=== PATIENT | female | born 1940 | race Caucasian/White ===

== ENCOUNTER 2017-01-07 18:23 | Inpatient (IN) ==
[2017-01-07] MEDS ORDERED: Ondansetron 4 MG/2 ML VIAL IVP PRN (20:46)
[2017-01-07] MEDS ORDERED: Naloxone 0.4 MG/ML INJ IVP PRN (20:46)
[2017-01-07] MEDS ORDERED: Acetaminophen 325 MG TABLET PO PRN (20:46)
[2017-01-07] MEDS ORDERED: D5% in Water 1,000 ML IVC PRN (20:52)
[2017-01-07] MEDS ORDERED: Dextrose Gel 15 GM PO PRN ×2 (20:52)
[2017-01-07] MEDS ORDERED: *HR* Dextrose 50 % in Water (Syg) 50 ML SYRINGE IVP PRN (20:52)
--- NOTE | 2017-01-07 21:34 | Internal Med History&Physical ---
<Noemi Rojas M - Last Filed: 01/07/17 22:07> Date of Encounter: 01/07/17 Time of Encounter: 21:25 Assessment and Plan (1) Right femoral fracture Current visit: Yes Status: Acute Patient had mechanical fall at home and was found to have right femur fracture. Discussed case with Dr. Phillip of orthopedics, he states fracture is paraprosthetic and may or may not be necessary for surgical intervention. Will keep patient NPO after midnight just in case, and Dr. Price will consult on patient tomorrow. Matador and morphine PRN for pain. Narcan PRN for respiratory depression. Bed rest and fall precautions. Qualifiers: Encounter type: initial encounter Femur location: other head and neck Fracture type: closed Qualified Code(s): S72.091A - Other fracture of head and neck of right femur, initial encounter for closed fracture (2) Type 2 diabetes mellitus Current visit: Yes Status: Acute Check Hgb A1c. diabetic, heart healthy diet. check blood sugars ACHS and q6hrs while NPO sliding scale corrections dose ACHS and q6hrs while NPO hypoglycemic protocol. 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 Consider consult to palliative care if necessary. (4) Alzheimer disease Current visit: Yes Status: Acute Patient has diagnosis of Alzheimer's disease. Per her daughter, she is at her baseline mental status and is oriented x 2 and pleasant. Continue home medications. Qualifiers: Alzheimer's disease onset: unspecified onset Dementia behavioral disturbance: without behavioral disturbance Qualified Code(s): G30.9 - Alzheimer's disease, unspecified; F02.80 - Dementia in other diseases classified elsewhere without behavioral disturbance (5) DVT prophylaxis Current visit: Yes Status: Acute anti-embolic stockings lovenox SQ Daily. Internal Medicine - H&P: HPI Chief complaint: fall Admitted From: Hospital to Hospital Transfer Plans for Post Hospital Care: Transfer Care Home Facility History of present illness: Ms. Ibarra is a 76 year old female with diabetes, arthritis, and Alzeimer's who was transferred from [facility] with right femur fracture. Patient reports she tripped at home and injured her right leg and she also hit her face and suffered a laceration to her right cheek. She reports pain to her right hip and thigh. She denies any lightheadedness or dizziness preceding fall. She denies any chest pain, palpitations, shortness of breath, fever, chills, sweats, nausea, vomiting or diarrhea. Evaluation at [facility] [place] included an xray of right hip which reportedly demonstrated a right proximal femur fracture. On exam, patient is alert and oriented x 2, in no acute distress. Heart has regular rate and rhythm, lungs are clear bilaterally. Peripheral Past Med Surg Social Fam HX - Past Medical History Medical history: arthritis, dementia, diabetes, GERD, hyperlipidemia, osteoporosis, pulmonary embolus Psychiatric history: anxiety, depression - Past Surgical History Surgical History: appendectomy, cholecystectomy, colostomy, hysterectomy - Social History Smoking Status: Former smoker Alcohol use: none Drug use: none - Family History Mother Living Status: Cause of : Heart disease Hx Family Cardiac Disorders: Yes (arterial disease) Father Living Status: Cause of : Cancer Hx Family Cancer: Yes (Leukemia) Internal Medicine - H&P: Meds Celecoxib [Celebrex] DAILY 11/09/14 [History] ClonazePAM [Klonopin] 0.5 mg PO BID 11/09/14 [History] Insulin Glargine,Hum.rec.anlog [Lantus Solostar] 10 unit SQ HS 11/09/14 [History ] Levocetirizine Dihydrochloride 11/09/14 [History] Metoclopramide 11/09/14 [History] TraMADol 11/09/14 [History] TraMADol [Ultram] 50 mg PO QID 11/09/14 [History] Aspirin 81 mg PO DAILY tab.chew 11/10/14 [Rx] Brimonidine 0.2% [Alphagan] 1 drop BOTH EYES DAILY bottle 11/10/14 [Rx] Buspirone [Buspar] 30 mg PO BID tablet 11/10/14 [Rx] Celecoxib [Celebrex] 200 mg PO DAILY capsule 11/10/14 [Rx] ClonazePAM [Klonopin] 0.5 mg PO Q12H #10 tablet 11/10/14 [Rx] Colesevelam [Welchol] 1,250 mg PO BIDAC tablet 11/10/14 [Rx] HYDROcodone/Acet 5/325 mg [Matador 5-325 mg] 1 tab PO Q6H PRN #10 tablet 11/10/14 [Rx] Insulin DETEMIR [Levemir] 10 unit SQ HS mls 11/10/14 [Rx] Insulin LISPRO [HumaLOG] 0 units SQ HS vial 11/10/14 [Rx] Insulin LISPRO [HumaLOG] 0 units SQ TIDAC vial 11/10/14 [Rx] Lisinopril [Zestril] 10 mg PO DAILY tablet 11/10/14 [Rx] Metoclopramide [Reglan] 10 mg PO BIDAC tablet 11/10/14 [Rx] TraMADol [Ultram] 50 mg PO Q6H PRN #10 tablet 11/10/14 [Rx] TraZODone 50 mg PO HS #10 tablet 11/10/14 [Rx] Buspirone HCl [Buspar] 30 mg PO BID tablet 06/25/15 [Rx] HYDROcodone/Acet 5/325 mg [Matador 5-325 mg] 1 tab PO Q6H PRN #30 tab 06/25/15 [Rx ] 3 Allergy/AdvReac Type Severity Reaction Status Date / Time No Known Allergies Allergy Verified 11/08/14 17:42 All Systems PM: A 10-system review of systems was performed and is negative for pertinent findings except as documented above in the HPI. - Constitutional Constitutional: falls, no chills, no fever(s), no night sweats - EENT Eyes: no change in vision, no discharge, no pain, no photophobia Ears: no ear discharge, no ear pain, no tinnitus Nose, mouth and throat: no dysphagia, no nasal discharge, no neck pain, no sore throat - Cardiovascular Cardiovascular ROS IM: no chest pain, no diaphoresis, no dyspnea, no lightheadedness, no palpitations, no syncope - Respiratory Respiratory: no cough, no dyspnea, no wheezing, no excessive phlegm production - Gastrointestinal Gastrointestinal: no abdominal pain, no diarrhea, no hematemesis, no hematochezia, no melena, no nausea, no vomiting - Genitourinary Genitourinary: no change in urinary stream, no dysuria, no flank pain, no hematuria - Musculoskeletal Musculoskeletal ROS IM: no numbness, no tingling Additional comments: right leg and hip pain - Integumentary Integumentary IM: no rash, no unusual bruising - Neurological Neurological ROS: no confusion, no convulsions, no focal weakness, no numbness, no tingling, no tremor(s) - Hematologic/Lymphatic Hematologic/Lymphatic: no easy bruising - Constitutional Vitals: Temp Pulse Resp BP Pulse Ox 98.7 F 76 16 128/63 99 01/07/17 20:38 01/07/17 20:38 01/07/17 20:38 01/07/17 20:38 01/07/17 20:38 General appearance: Present: A&O X 2, pleasant, no acute distress - Head Head exam: Present: normocephalic Additional comments: Laceration lateral to right eye and on right cheek, clean and sutured - Eye Eye exam: Present: PERRL, conjuntiva pink, sclera anicteric Pupils: Present: PERRL - Neck Neck exam general surgery: Present: supple, trachea midline. Absent: lymphadenopathy - Respiratory Respiratory exam: Present: CTAB. Absent: accessory muscle use, rales, rhonchi, wheezes - Cardiovascular Cardiovascular exam: Present: RRR, +S1, +S2. Absent: diastolic murmur, gallop, rubs, systolic murmur - GI/Abdominal GI/Abdominal exam: Present: normal bowel sounds, soft, no peritoneal signs. Absent: distended, tenderness - Extremities Exam Extremities exam: Present: tenderness (right proximal thigh), warm, radial pulses palpable and symmetrical. Absent: calf tenderness, cyanotic, pedal edema - Neurological Exam Neurological exam: Present: CN II-XII intact, oriented X3, no focal deficits. Absent: pronater drift, facial droop, speech deficit - Skin Skin exam: Present: dry, intact <Menon-Cedrick Carolina - Last Filed: 01/08/17 00:32> Date of Encounter: 01/08/17 Internal Medicine - H&P: HPI History of present illness: Ms. Ibarra is a 76 year old female All Systems PM: A 10-system review of systems was performed and is negative for pertinent findings except as documented above in the HPI. - Constitutional Vitals: Temp Pulse Resp BP Pulse Ox 98.5 F 82 16 112/59 99 01/07/17 22:58 01/07/17 22:58 01/07/17 22:58 01/07/17 22:58 01/07/17 22:58 - Attending Attestation I examined this patient and my medical decision-making was reviewed with the ADDRESSOGRAPH OPERATOR. I agree with the documented findings, disposition and treatment plan as described except to the extent set forth below. Patient is a 76-year-old female with past medical history arthritis, dementia, diabetes, GERD, hyperlipidemia, osteoporosis, pulmonary embolism, anxiety and depression. Patient presents as a transfer from [facility] [place]. Patient apparently tripped and injured her right leg and also sustained a laceration to the right side of face. She complains of right hip pain and thigh pain. Denies chest pain or shortness of breath or palpitations. No other acute symptoms. Patient is awake and alert. Not in any distress. She is able to provide some history. No family members at bedside. Heart rate 82, blood pressure 112/59, O2 sat 99%. Heart S1 is positive no murmurs or rubs. Lungs bilateral air entry nose or crackles. Abdomen soft nontender.
[2017-01-07 21:49] LABS: INR 1.1; Prothrombin Time 11.8 Seconds (9.4-12.1)
[2017-01-07 21:52] LABS: Hemoglobin A1C 6.4 %
[2017-01-07] MEDS: Insulin LISPRO 300 UNITS/3 ML VIAL SQ SCH (22:10)
[2017-01-07] MEDS: *HR* Morphine 2 MG/ML SYRINGE IVP PRN (22:31)
[2017-01-08 03:02] LABS: Basophils % 0.7 %; Eosinophils # 0.2 K/mcL (0.0-0.6); Eosinophils % 3.3 %; Hematocrit 20.8 % (35.3-44.9); Hemoglobin 6.5 g/dL (11.5-15.4); Immature Granulocytes % 0.2 % (0-4); Lymphocytes # 1.1 K/mcL (0.6-4.6); Lymphocytes % 19.5 %; Mean Corpuscular HGB Conc 31.3 g/dL (31.6-35.5); Mean Corpuscular Hemoglobin 23.4 pg (28.0-33.3); Mean Corpuscular Volume 74.8 fL (83.0-100.0); Mean Platelet Volume 8.9 fL (9.4-12.4); Monocytes # 0.5 K/mcL (0.0-1.3); Monocytes % 8.9 %; Neutrophils # 3.7 K/mcL (1.6-8.9); Platelet Count 268 K/mcL (140-400); Red Blood Count 2.78 M/mcL (3.82-4.97); Red Cell Distribution Width 15.2 % (11.5-14.5); Segmented Neutrophils % 67.4 %
[2017-01-08 03:16] LABS: BUN/Creatinine Ratio 19 (6-26); Blood Urea Nitrogen 13 mg/dL (7-20); Calcium 8.4 mg/dL (8.6-10.8); Carbon Dioxide 24 mEq/L (19-29); Chloride 106 mEq/L (98-109); Glucose 121 mg/dL (70-99); Osmolality,Calculated 283 (280-300); Potassium 4.1 mEq/L (3.5-4.5); Sodium 136 mEq/L (136-145); eGFR For African Americans > 60 (> 60); eGFR For Non-African Americans > 60 (> 60)
[2017-01-08] MEDS ORDERED: *HR* Enoxaparin 30 MG/0.3 ML SYRINGE SQ SCH (06:00)
[2017-01-08] MEDS: *HR* Morphine 2 MG/ML SYRINGE IVP PRN ×2 (06:37→20:43)
[2017-01-08] MEDS: Famotidine 20 MG/2 ML VIAL IVP SCH ×2 (06:38→16:12)
--- NOTE | 2017-01-08 08:02 | Internal Med Progress Note ---
<Zeus Hernandez - Last Filed: 01/08/17 07:44> Date of Encounter: 01/08/17 Time of Encounter: 07:44 - Assessment and plan (1) Right femoral fracture Current Visit: Yes Status: Acute Assessment and plan: Xray of right hip at [facility] showed right proximal femoral fracture. likely mechanical fall, but patient does have alzheimers and states she cannot fully remember what happened. Plan: norco and morphine PRN for pain fall precautions. appreciate orthopedic surgery recommendations. NPO for now. Qualifiers: Encounter type: initial encounter Femur location: other head and neck Fracture type: closed Qualified Code(s): S72.091A - Other fracture of head and neck of right femur, initial encounter for closed fracture (2) Anemia Current Visit: No Status: Acute Assessment and plan: Hg 6.5 2 units blood pending. will recheck Hg. patient is chronically anemic. will get iron panel with B12, folate with morning labs tomorrow. Qualifiers: Anemia type: other cause Other causes of anemia: acute posthemorrhagic Qualified Code(s): D62 - Acute posthemorrhagic anemia (3) Chest pain Current Visit: Yes Status: Acute Assessment and plan: patient reports substernal chest pain that she describes as a dull ache that has been going on since last night. the chest pain was reproducible upon exam, but will get EKG and troponins to rule out ACS. Qualifiers: Chest pain type: unspecified Qualified Code(s): R07.9 - Chest pain, unspecified (4) Type 2 diabetes mellitus Current Visit: Yes Status: Acute Assessment and plan: well controlled. A1C 6.4 currently NPO\check sugars [id number] basal insulin with medium dose sliding scale. 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 will attempt to discuss code status if daughter is present in room. (6) Alzheimer disease Current Visit: Yes Status: Acute Assessment and plan: Patient currently alert and oriented x3, lives at home with her daughter. continue home medications. Qualifiers: Alzheimer's disease onset: unspecified onset Dementia behavioral disturbance: without behavioral disturbance Qualified Code(s): G30.9 - Alzheimer's disease, unspecified; F02.80 - Dementia in other diseases classified elsewhere without behavioral disturbance (7) DVT prophylaxis Current Visit: Yes Status: Acute Assessment and plan: EPCDs - Subjective Interval history: 76 F evaluated at bedside. patient is alert and oriented x3. she states she lives at home with her daughter and grandsons. patient states she thinks she tripped and broke her hip, but she is not quite sure what happens and doesnt fully remember. she also states that she used to live with her , but he a few weeks ago. patient denies nausea, vomiting, diarrhea, fever. she reports chills. she does report chest pain since last night. she denies shortness of breath. - Constitutional Vitals: Temp Pulse Resp BP Pulse Ox 99.3 F 74 14 102/61 98 01/08/17 07:08 01/08/17 07:08 01/08/17 07:08 01/08/17 07:08 01/08/17 07:08 General appearance: Present: A&O X 2, pleasant, no acute distress - Head Head exam: Present: normocephalic Additional comments: bruising under corner of right eye. laceration present on right cheek and under right eyebrow. - Neck Neck exam general surgery: Present: supple, trachea midline - Respiratory Respiratory exam: Present: CTAB - Cardiovascular Cardiovascular exam: Present: RRR, +S1, +S2 - GI/Abdominal GI/Abdominal exam: Present: normal bowel sounds, soft, tenderness. Absent: distended - Extremities Exam Extremities exam: Present: tenderness (tenderness present on right hip area. ). Absent: cyanotic, pedal edema - Neurological Exam Neurological exam: Present: alert, oriented X3 - Psychiatric Psychiatric exam: Present: normal affect, normal mood Internal Medicine: Result - Labs CBC & Chem 7: 01/08/17 02:44 01/08/17 02:44 Labs: Short CBC 01/08/17 Range/Units 02:44 WBC 5.5 (4.3-11.1) K/mcL Hgb 6.5 L (11.5-15.4) g/dL Hct 20.8 L (35.3-44.9) % Plt Count 268 (140-400) K/mcL Neutrophils # 3.7 (1.6-8.9) K/mcL [facility] 01/08/17 02:44 Sodium 136 Potassium 4.1 Chloride 106 Carbon Dioxide 24 BUN 13 Creatinine 0.69 Glucose 121 H Calcium 8.4 L - ABG Interpretation ABG results: PT/INR, D-dimer PT 11.8 Seconds (9.4-12.1) 01/07/17 21:34 Consult Discharge Plan - Plan Referrals: NONE,PCP [Primary Care Provider] - <Eugenio Garcia - Last Filed: 01/08/17 08:23> Date of Encounter: 01/08/17 - Constitutional Vitals: Temp Pulse Resp BP Pulse Ox 99.3 F 74 14 102/61 98 01/08/17 07:08 01/08/17 07:08 01/08/17 07:08 01/08/17 07:08 01/08/17 07:08 Internal Medicine: Result - Labs CBC & Chem 7: 01/08/17 02:44 01/08/17 02:44 Labs: Short CBC 01/08/17 Range/Units 02:44 WBC 5.5 (4.3-11.1) K/mcL Hgb 6.5 L (11.5-15.4) g/dL Hct 20.8 L (35.3-44.9) % Plt Count 268 (140-400) K/mcL Neutrophils # 3.7 (1.6-8.9) K/mcL [facility] 01/08/17 02:44 Sodium 136 Potassium 4.1 Chloride 106 Carbon Dioxide 24 BUN 13 Creatinine 0.69 Glucose 121 H Calcium 8.4 L - ABG Interpretation ABG results: PT/INR, D-dimer PT 11.8 Seconds (9.4-12.1) 01/07/17 21:34 - Impressions Impressions Pelvis X-Ray 01/08/17 07:29 IMPRESSION: 1. No definite acute findings in the pelvis. 2. Bony demineralization partially limits evaluation for fractures. Consider further evaluation with CT if there are clinical findings of fracture. 3. Questionable healed or healing fractures of the bilateral inferior pubic rami, potentially related to insufficiency injury. 4. 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 5. 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 D/ / Gage Cruz MD / Gage Cruz MD Interpreting Provider: Gage Cruz MD - Attending Attestation possible chronic anemia from iron deficiency, continue famotidine, consider GI consult if evidence of bleeding Send hemoccult I examined this patient and my medical decision-making was reviewed with the Resident Physician. I agree with the documented findings, disposition and treatment plan as described except to the extent set forth below.
[2017-01-08] MEDS ORDERED: clonazePAM 0.5 MG TABLET PO PRN (08:18)
[2017-01-08] MEDS: Insulin LISPRO 300 UNITS/3 ML VIAL SQ SCH ×4 (08:19→20:49)
--- NOTE | 2017-01-08 08:39 | Orthopedic Consult Note ---
Date of Encounter: 01/08/17 Time of Encounter: 08:36 Assessment and Plan (1) Fracture of right hip Current Visit: Yes Status: Acute I did discuss the diagnosis in detail with the patient. She has a prior right hip hemiarthroplasty and although she did have a greater trochanter avulsion shortly thereafter she had done reasonably well. She was admitted after a fall which led to an acute anterior cortical fracture of the right proximal femur though this seems to not be affecting the stability of the implant which appears well fixed on x-ray. My recommendation at this point is nonoperative management in the form of touchdown weightbearing with the assistance of physical therapy. She will require close radiographic follow-up. The patient is aware that should the implant become loose and displace she will likely require revision hip arthroplasty. She does have a hemoglobin of 6.5 and we will defer transfusion to the primary team. I anticipate discharge to a rehabilitation facility to help recover. Follow up with me in the office in 1 week for a clinical and radiographic reevaluation or sooner if needed. Qualifiers: Encounter type: initial encounter Fracture type: closed Qualified Code(s) : S72.001A - Fracture of unspecified part of neck of right femur, initial encounter for closed fracture History of Present Illness HPI: Ms. Ibarra is a 76 year old female who is a hospital transfer last night to the hospitalist service here at edema related to a right proximal femur fracture. The patient has a history of a right hip hemiarthroplasty over a year ago and had a postoperative greater trochanter fracture which was managed nonoperatively. She had apparently done reasonably well from this and had a non -syncopal fall yesterday and developed an acute fracture of the anterior cortex of the proximal femur. Orthopedics was counseled to to assist in evaluation and management of this patient. On my evaluation she complains of right groin pain worse with movement and better at rest. She reports no numbness, tingling , or any other associated signs or symptoms. She did have a small face laceration over the right eye. No headaches, neck pain, chest pain, abdominal pain, bilateral upper extremity pain, or left lower extremity pain. She has no other complaints. Past Med Surg Social Fam HX - Past Medical History Medical history: arthritis, dementia, diabetes, GERD, hyperlipidemia, osteoporosis, pulmonary embolus Psychiatric history: anxiety, depression - Past Surgical History Surgical History: appendectomy, cholecystectomy, colostomy, hysterectomy - Social History Smoking Status: Former smoker Alcohol use: none Drug use: none - Family History Mother Living Status: Cause of : Heart disease Hx Family Cardiac Disorders: Yes (arterial disease) Father Living Status: Cause of : Cancer Hx Family Cancer: Yes (Leukemia) Medications and Allergies Celecoxib [Celebrex] DAILY 11/09/14 [History] ClonazePAM [Klonopin] 0.5 mg PO BID 11/09/14 [History] Insulin Glargine,Hum.rec.anlog [Lantus Solostar] 10 unit SQ HS 11/09/14 [History ] Levocetirizine Dihydrochloride 11/09/14 [History] Metoclopramide 11/09/14 [History] TraMADol 11/09/14 [History] TraMADol [Ultram] 50 mg PO QID 11/09/14 [History] Aspirin 81 mg PO DAILY tab.chew 11/10/14 [Rx] Brimonidine 0.2% [Alphagan] 1 drop BOTH EYES DAILY bottle 11/10/14 [Rx] Buspirone [Buspar] 30 mg PO BID tablet 11/10/14 [Rx] Celecoxib [Celebrex] 200 mg PO DAILY capsule 11/10/14 [Rx] ClonazePAM [Klonopin] 0.5 mg PO Q12H #10 tablet 11/10/14 [Rx] Colesevelam [Welchol] 1,250 mg PO BIDAC tablet 11/10/14 [Rx] HYDROcodone/Acet 5/325 mg [Juana Diaz 5-325 mg] 1 tab PO Q6H PRN #10 tablet 11/10/14 [Rx] Insulin DETEMIR [Levemir] 10 unit SQ HS mls 11/10/14 [Rx] Insulin LISPRO [HumaLOG] 0 units SQ HS vial 11/10/14 [Rx] Insulin LISPRO [HumaLOG] 0 units SQ TIDAC vial 11/10/14 [Rx] Lisinopril [Zestril] 10 mg PO DAILY tablet 11/10/14 [Rx] Metoclopramide [Reglan] 10 mg PO BIDAC tablet 11/10/14 [Rx] TraMADol [Ultram] 50 mg PO Q6H PRN #10 tablet 11/10/14 [Rx] TraZODone 50 mg PO HS #10 tablet 11/10/14 [Rx] Buspirone HCl [Buspar] 30 mg PO BID tablet 06/25/15 [Rx] HYDROcodone/Acet 5/325 mg [Juana Diaz 5-325 mg] 1 tab PO Q6H PRN #30 tab 06/25/15 [Rx ] 3 Allergy/AdvReac Type Severity Reaction Status Date / Time No Known Allergies Allergy Verified 11/08/14 17:42 All Systems Reviewed: Constitutional and musculoskeletal systems were reviewed and are negative unless otherwise stated in history of present illness. Physical Exam - Constitutional Vitals: Temp Pulse Resp BP Pulse Ox 99.3 F 74 14 102/61 98 01/08/17 07:08 01/08/17 07:08 01/08/17 07:08 01/08/17 07:08 01/08/17 07:08 Constitutional -Vitals reviewed -The patient is well developed and well nourished. -Mood is pleasant. -The patient is well groomed. Psychiatric -The patient is fully alert and oriented x 3. Respiratory: -Respiratory effort normal Abdomen: -Soft abdomen -Non tender -Non distended: Left upper extremity: -No deformities. The overlying skin is intact. No obvious signs of acute trauma. -No tenderness to palpation throughout. -No significant pain with passive motion of the shoulder, elbow, wrist, and fingers within the limits of the bed. -Able to make an "OK" sign, cross the index and long fingers, and extend the thumb. -Sensation grossly intact to light touch throughout the median, radial, and ulnar distributions. -Radial pulse is present; Fingers have good capillary refill. Right upper extremity: -No deformities. The overlying skin is intact. No obvious signs of acute trauma. -No tenderness to palpation throughout. -No significant pain with passive motion of the shoulder, elbow, wrist, and fingers within the limits of the bed. -Able to make an "OK" sign, cross the index and long fingers, and extend the thumb. -Sensation grossly intact to light touch throughout the median, radial, and ulnar distributions. -Radial pulse is present; Fingers have good capillary refill. Left lower extremity: -No deformities. The overlying skin is intact. No obvious signs of acute trauma. -No tenderness to palpation throughout. -No pain with passive motion of the hip, knee, ankle, and toes within the limits of the bed. -No pain with axial loading of the thigh. -Able to dorsiflex and plantarflex the ankle and toes. -Sensation is grossly intact to light touch throughout the sural, saphenous, superficial peroneal, and deep peroneal distributions. -Toes have good capillary refill. Right lower extremity: -No deformities. The overlying skin is intact. No obvious signs of acute trauma. -No tenderness to palpation throughout. -No pain with axial loading of the thigh -Moderate pain with hip flexion passively -I can gently logrolling hip without any significant pain -Able to dorsiflex and plantarflex the ankle and toes. -Sensation is grossly intact to light touch throughout the sural, saphenous, superficial peroneal, and deep peroneal distributions. -Toes have good capillary refill. Diagnostic Imaging: I did personally review and interpret x-rays of the right femur as well as an AP of the pelvis shows a well fixed hip hemiarthroplasty with an acute cortical fracture of the anterior proximal cortex of the femur. This does not seem to be affecting stability of the implant. She does have a chronic avulsion of the greater trochanter which is incidental to her injury. Results - Labs Result Diagrams: 01/08/17 02:44 01/08/17 02:44 Labs: Abnormal lab results RBC 2.78 M/mcL (3.82-4.97) L 01/08/17 02:44 Hgb 6.5 g/dL (11.5-15.4) L 01/08/17 02:44 Hct 20.8 % (35.3-44.9) L 01/08/17 02:44 MCV 74.8 fL (83.0-100.0) L 01/08/17 02:44 MCH 23.4 pg (28.0-33.3) L 01/08/17 02:44 MCHC 31.3 g/dL (31.6-35.5) L 01/08/17 02:44 RDW 15.2 % (11.5-14.5) H 01/08/17 02:44 MPV 8.9 fL (9.4-12.4) L 01/08/17 02:44 Glucose 121 mg/dL (70-99) H 01/08/17 02:44 POC Glucose 148 (58-89) H 01/07/17 20:47 Hemoglobin A1c 6.4 % (-5.6) H 01/07/17 21:34 Calcium 8.4 mg/dL (8.6-10.8) L 01/08/17 02:44 H & H 01/08/17 Range/Units 02:44 Hgb 6.5 L (11.5-15.4) g/dL Hct 20.8 L (35.3-44.9) % All other labs normal. Consult Discharge Plan - Plan Referrals: NONE,PCP [Primary Care Provider] -
[2017-01-08] MEDS ORDERED: 0.9 % Sodium Chloride 250 ML ONE ×2 (09:40→13:51)
[2017-01-08 18:35] LABS: Hematocrit 29.6 % (35.3-44.9); Hemoglobin 9.7 g/dL (11.5-15.4)
[2017-01-08] MEDS: *HR* HYDROcodone/Acet 5/325 mg TABLET PO PRN (18:51)
[2017-01-08] MEDS: traZODone 50 MG TABLET PO SCH (20:43)
[2017-01-08] MEDS ORDERED: Insulin DETEMIR 100 UNIT/ML X5UNITS SQ SCH (21:00)
[2017-01-08] MEDS ORDERED: NON-FORMULARY MEDICATION 1 EACH EACH (Insulin Detemir 10 UNIT) SQ SCH (21:00)
[2017-01-09 03:46] LABS: Basophils % 0.6 %; Eosinophils # 0.1 K/mcL (0.0-0.6); Eosinophils % 1.4 %; Hematocrit 30.7 % (35.3-44.9); Hemoglobin 10.1 g/dL (11.5-15.4); Immature Granulocytes % 0.2 % (0-4); Lymphocytes # 0.9 K/mcL (0.6-4.6); Lymphocytes % 14.4 %; Mean Corpuscular HGB Conc 32.9 g/dL (31.6-35.5); Mean Corpuscular Hemoglobin 24.8 pg (28.0-33.3); Mean Corpuscular Volume 75.2 fL (83.0-100.0); Mean Platelet Volume 9.1 fL (9.4-12.4); Monocytes # 0.5 K/mcL (0.0-1.3); Monocytes % 8.4 %; Neutrophils # 4.8 K/mcL (1.6-8.9); Platelet Count 325 K/mcL (140-400); Red Blood Count 4.08 M/mcL (3.82-4.97); Red Cell Distribution Width 15.5 % (11.5-14.5)
[2017-01-09 03:59] LABS: BUN/Creatinine Ratio 14 (6-26); Blood Urea Nitrogen 9 mg/dL (7-20); Calcium 9.3 mg/dL (8.6-10.8); Carbon Dioxide 24 mEq/L (19-29); Chloride 105 mEq/L (98-109); Glucose 77 mg/dL (70-99); Osmolality,Calculated 279 (280-300); Potassium 3.3 mEq/L (3.5-4.5); Sodium 136 mEq/L (136-145); eGFR For African Americans > 60 (> 60); eGFR For Non-African Americans > 60 (> 60)
[2017-01-09 04:00] LABS: % Iron Saturation 54 % (15-50); Iron 183 mcg/dL (50-170); Transferrin 241 mg/dL (180-382)
[2017-01-09] MEDS: *HR* Morphine 2 MG/ML SYRINGE IVP PRN ×3 (04:00→19:36)
[2017-01-09 04:21] LABS: Ferritin 44 ng/ml (5-204)
[2017-01-09 04:58] LABS: Folate 6.7 ng/mL (7.0-31.4)
[2017-01-09] MEDS: Famotidine 20 MG/2 ML VIAL IVP SCH ×2 (07:01→16:36)
[2017-01-09] MEDS: Insulin LISPRO 300 UNITS/3 ML VIAL SQ SCH ×4 (07:56→20:30)
[2017-01-09] MEDS ORDERED: Potassium Chloride Elixir 20 MEQ/15 ML UDC PO ONE (08:03)
--- NOTE | 2017-01-09 09:08 | Internal Med Progress Note ---
<Zeus Hernandez - Last Filed: 01/09/17 09:30> Date of Encounter: 01/09/17 Time of Encounter: 09:01 - Assessment and plan (1) Right femoral fracture Current Visit: Yes Status: Acute Assessment and plan: Xray of right hip at [facility] showed right proximal femoral fracture. likely mechanical fall, but patient does have alzheimers and states she cannot fully remember what happened. Plan: norco and morphine PRN for pain fall precautions. ortho recommends non operative managemnet. Follow up with orthopedic surgery 1 week after discharge. PT/OT Qualifiers: Encounter type: initial encounter Femur location: other head and neck Fracture type: closed Qualified Code(s): S72.091A - Other fracture of head and neck of right femur, initial encounter for closed fracture (2) Fever Current Visit: Yes Status: Acute Assessment and plan: patient spiked temperature of 100.2 overnight. 1V chest xray had no evidence of consolidation. Plan: stat UA with reflex culture and 2V CXR pending. Qualifiers: Fever type: unspecified Qualified Code(s): R50.9 - Fever, unspecified (3) Rib fractures Current Visit: Yes Status: Acute Assessment and plan: 1V CXR showed right lateral rib fractures present in ribs 5-7, likely subacute to chronic. There was concern for possible pneumothorax on CXR Plan: stat 2V CXR pending. Qualifiers: Encounter type: sequela Rib fracture type: multiple ribs Fracture type: closed Laterality: unspecified laterality Qualified Code(s): S22.49XS - Multiple fractures of ribs, unspecified side, sequela (4) Anemia Current Visit: No Status: Acute Assessment and plan: Hg 6.5 on admission. 2 units blood blood transfused yesterday. iron profile and B12 within normal limits. folate slightlly low. etiology likely acute bood loss anemia. stool occult blood is positive. Plan: folic acid supplementation. consult to gastroenterology. NPO after midnight for possible scope. Qualifiers: Anemia type: other cause Other causes of anemia: acute posthemorrhagic Qualified Code(s): D62 - Acute posthemorrhagic anemia (5) Chest pain Current Visit: Yes Status: Resolved Assessment and plan: EKG unremarkable, tropes x3 negative. continue to monitor. Qualifiers: Chest pain type: unspecified Qualified Code(s): R07.9 - Chest pain, unspecified (6) Type 2 diabetes mellitus Current Visit: Yes Status: Acute Assessment and plan: hypoglycemic today. A1C 6.4 diabetic diet low dose SSI with ACHS accuchecks. Qualifiers: Diabetes mellitus complication status: with unspecified complications Diabetes mellitus retirement insulin use: with retirement use Qualified Code(s) : E11.8 - Type 2 diabetes mellitus with unspecified complications; Z79.4 - intermodal customer service (current) use of insulin (7) Hospice care patient Current Visit: Yes Status: Acute Assessment and plan: Patient is hospice for Alzheimes disease per patient's daughter. will attempt to discuss code status if daughter is present in room. (8) Alzheimer disease Current Visit: Yes Status: Acute Assessment and plan: Patient currently alert and oriented x3, lives at home with her daughter. continue home medications. Qualifiers: Alzheimer's disease onset: unspecified onset Dementia behavioral disturbance: without behavioral disturbance Qualified Code(s): G30.9 - Alzheimer's disease, unspecified; F02.80 - Dementia in other diseases classified elsewhere without behavioral disturbance (9) DVT prophylaxis Current Visit: Yes Status: Acute Assessment and plan: EPCDs - Subjective Interval history: 76 F evaluated at bedside. patient is laying in bed hunched over and she states she is sad because her recently . she denies nausea, vomting , diarrhea, fever, chills, chest pain, shortness of breath. - Constitutional Vitals: Temp Pulse Resp BP Pulse Ox 100.2 F H 72 14 149/78 98 01/09/17 07:13 01/09/17 07:13 01/09/17 07:13 01/09/17 07:13 01/09/17 07:13 General appearance: Present: pleasant, no acute distress - Head Head exam: Present: atraumatic, normocephalic - Neck Neck exam general surgery: Present: supple, trachea midline - Respiratory Respiratory exam: Present: decreased breath sounds - Cardiovascular Cardiovascular exam: Present: RRR, +S1, +S2 - Extremities Exam Extremities exam: Absent: cyanotic, pedal edema - Neurological Exam Neurological exam: Present: alert, oriented X3 - Psychiatric Psychiatric exam: Present: depressed - Skin Skin exam: Present: intact Internal Medicine: Result - Labs CBC & Chem 7: 01/09/17 03:14 01/09/17 03:14 Labs: Short CBC 01/08/17 01/09/17 Range/Units 18:23 03:14 WBC 6.4 (4.3-11.1) K/mcL Hgb 9.7 L D 10.1 L (11.5-15.4) g/dL Hct 29.6 L 30.7 L (35.3-44.9) % Plt Count 325 (140-400) K/mcL Neutrophils # 4.8 (1.6-8.9) K/mcL BMP 01/09/17 03:14 Sodium 136 Potassium 3.3 L Chloride 105 Carbon Dioxide 24 BUN 9 Creatinine 0.65 Glucose 77 Calcium 9.3 Cardiac Enzymes 01/08/17 01/09/17 Range/Units 18:23 03:14 Troponin I 0.00 0.01 (0-0.03) ng/mL - ABG Interpretation ABG results: PT/INR, D-dimer PT 11.8 Seconds (9.4-12.1) 01/07/17 21:34 - Impressions Impressions Chest X-Ray 01/09/17 07:45 IMPRESSION: Suspect subacute to chronic fractures involving the right 5th through 7th ribs. Correlate with point tenderness. Interface projecting over the right lateral chest is favored to represent a skin fold. If there is clinical concern for pneumothorax, consider repeating the chest radiograph or obtaining PA and lateral chest radiographs. Otherwise, negative portable chest. The findings were sent to the Radiology Results Communication Center at 8:24 am on 01/09/2017to be communicated to a licensed caregiver. D/ / 01/09/2017 08:29:42 Clive Aquino MD / Candace Braden Interpreting Provider: Clive Aquino MD - VTE Documentation of Mechanical Device: Intermittent pneumatic compression device Consult Discharge Plan - Plan Referrals: NONE,PCP [Primary Care Provider] - <Eugenio Garcia H - Last Filed: 01/09/17 13:01> Date of Encounter: 01/09/17 - Constitutional Vitals: Temp Pulse Resp BP Pulse Ox 98.8 F 68 14 147/76 99 01/09/17 11:48 01/09/17 11:48 01/09/17 11:48 01/09/17 11:48 01/09/17 11:48 Internal Medicine: Result - Labs CBC & Chem 7: 01/09/17 03:14 01/09/17 03:14 Labs: Short CBC 01/08/17 01/09/17 Range/Units 18:23 03:14 WBC 6.4 (4.3-11.1) K/mcL Hgb 9.7 L D 10.1 L (11.5-15.4) g/dL Hct 29.6 L 30.7 L (35.3-44.9) % Plt Count 325 (140-400) K/mcL Neutrophils # 4.8 (1.6-8.9) K/mcL BMP 01/09/17 03:14 Sodium 136 Potassium 3.3 L Chloride 105 Carbon Dioxide 24 BUN 9 Creatinine 0.65 Glucose 77 Calcium 9.3 Cardiac Enzymes 01/08/17 01/09/17 Range/Units 18:23 03:14 Troponin I 0.00 0.01 (0-0.03) ng/mL Urine 01/09/17 Range/Units 12:32 Urine Color Yellow (Yellow) Urine Clarity Clear (Clear) Urine pH 6.0 (5.0-8.0) pH Units Ur Specific Bentley 1.012 (1.010-1.025) Urine Protein Negative (Neg-Trace) mg/dL Urine Glucose (UA) Normal (Normal) mg/dL - ABG Interpretation ABG results: PT/INR, D-dimer PT 11.8 Seconds (9.4-12.1) 01/07/17 21:34 - Impressions Impressions Chest X-Ray 01/09/17 07:45 IMPRESSION: Suspect subacute to chronic fractures involving the right 5th through 7th ribs. Correlate with point tenderness. Interface projecting over the right lateral chest is favored to represent a skin fold. If there is clinical concern for pneumothorax, consider repeating the chest radiograph or obtaining PA and lateral chest radiographs. Otherwise, negative portable chest. The findings were sent to the Radiology Results Communication Center at 8:24 am on 01/09/2017to be communicated to a licensed caregiver. D/ / 01/09/2017 08:29:42 Clive Aquino MD / Candace Braden Interpreting Provider: Clive Aquino MD Chest X-Ray 01/09/17 09:27 IMPRESSION: No pneumothorax. No acute abnormality. Subacute appearing right 5th through 7th rib fractures. D/ / 01/09/2017 10:45:30 Sushil Mai MD / Candace Braden Interpreting Provider: Sushil Mai MD - Attending Attestation Possible acute and chronic blood loss anemia GI consult in the morning Unclear etiology of mild fever I examined this patient and my medical decision-making was reviewed with the Resident Physician. I agree with the documented findings, disposition and treatment plan as described except to the extent set forth below.
[2017-01-09] MEDS: Folic Acid 1 MG TABLET PO SCH (09:45)
[2017-01-09] MEDS: *HR* HYDROcodone/Acet 5/325 mg TABLET PO PRN (09:47)
--- NOTE | 2017-01-09 12:13 | Orthopedics Progress Note ---
Date of Encounter: 01/09/17 Time of Encounter: 12:11 - Assessment and Plan (1) Fracture of right hip Current Visit: Yes Status: Acute I did discuss the diagnosis in detail with the patient. She has a prior right hip hemiarthroplasty and although she did have a greater trochanter avulsion shortly thereafter she had done reasonably well. She was admitted after a fall which led to an acute anterior cortical fracture of the right proximal femur though this seems to not be affecting the stability of the implant which appears well fixed on x-ray. My recommendation at this point is nonoperative management in the form of touchdown weightbearing with the assistance of physical therapy. She will require close radiographic follow-up. The patient is aware that should the implant become loose and displace she will likely require revision hip arthroplasty. She does have a hemoglobin of 6.5 and we will defer transfusion to the primary team. I anticipate discharge to a rehabilitation facility to help recover. Follow up with me in the office in 1 week for a clinical and radiographic reevaluation or sooner if needed. Qualifiers: Encounter type: initial encounter Fracture type: closed Qualified Code(s) : S72.001A - Fracture of unspecified part of neck of right femur, initial encounter for closed fracture Subjective Interval history: S: Resting in bed comfortably. Expected pain to the right hip and groin. No new injuries. She has not yet been up with therapy. O: Afebrile and vital signs are stable No deformities to the bilateral lower extremities. The overlying skin is intact Mild tenderness to palpation over the right hip and groin I can gently passively logroll the right thigh without significant pain. No significant pain with axial loading of the right hip. A: Stable, periprosthetic fracture of the right proximal femur P: At this point my recommendation is continued nonoperative management. Physical therapy when able Toe-touch weightbearing to the right lower extremity Re-x-ray in one week in the office Objective Vital signs: Vital Signs Temp Pulse Resp BP Pulse Ox 01/09/17 11:48 98.8 F 68 14 147/76 99 01/09/17 07:13 100.2 F H 72 14 149/78 98 01/09/17 04:12 98.3 F 71 18 125/75 97 01/09/17 00:15 98.3 F 77 17 123/73 98 01/08/17 21:05 98.7 F 75 17 127/75 98 01/08/17 16:40 98.9 F 78 16 130/72 01/08/17 14:14 99.0 F 69 16 01/08/17 13:58 99.3 F 73 15 120/55 01/08/17 12:32 98.7 F 15 121/68 Intake and Output 01/08/17 01/09/17 01/09/17 23:59 07:59 15:59 Intake Total 520 / 520 200 / 200 118 / 118 Balance 520 / 520 200 / 200 118 / 118 Intake: Oral 220 / 220 200 / 200 118 / 118 Blood Product 300 / 300 Rbcs Leuko Poor As-1 Unit 300 / 300 [id number] Other: Meal Dinner Breakfast Percent of Meal Consumed 5% 30% Stool Size Small Moderate Stool Consistency formed loose Stool Color Brown Yellow Green # Urine Diapers 1 1 # Bowel Movements 1 # Bowel Movement Diapers 1 Weight 55.9 kg Blood Glucose* 106 89 161 Patient Weight 01/09/17 23:59 Weight 55.9 kg - Labs CBC & BMP: 01/09/17 03:14 01/09/17 03:14 Labs: Abnormal lab results Hgb 10.1 g/dL (11.5-15.4) L 01/09/17 03:14 Hct 30.7 % (35.3-44.9) L 01/09/17 03:14 MCV 75.2 fL (83.0-100.0) L 01/09/17 03:14 MCH 24.8 pg (28.0-33.3) L 01/09/17 03:14 RDW 15.5 % (11.5-14.5) H 01/09/17 03:14 MPV 9.1 fL (9.4-12.4) L 01/09/17 03:14 Potassium 3.3 mEq/L (3.5-4.5) L 01/09/17 03:14 POC Glucose 161 (58-89) H 01/09/17 11:36 Hemoglobin A1c 6.4 % (-5.6) H 01/07/17 21:34 Calculated Osmolality 279 (280-300) L 01/09/17 03:14 Iron 183 mcg/dL (50-170) H 01/09/17 03:14 % Saturation 54 % (15-50) H 01/09/17 03:14 Folate 6.7 ng/mL (7.0-31.4) L 01/09/17 03:14 Stool Occult Blood Positive (Negative) A 01/08/17 20:45 - VTE Documentation of Mechanical Device: Intermittent pneumatic compression device Consult Discharge Plan - Plan Referrals: NONE,PCP [Primary Care Provider] -
[2017-01-09 12:36] LABS: Bilirubin,Urine Negative (Negative); Blood,Urine Negative (Negative); Clarity,Urine Clear (Clear); Color,Urine Yellow (Yellow); Glucose,Urine (UA) Normal (Normal); Ketones,Urine Negative (Negative); Leukocyte Esterase,Urine Negative (Negative); Nitrite,Urine Negative (Negative); Protein,Urine Negative (Neg-Trace); Specific Gravity,Urine 1.012 (1.010-1.025); Urobilinogen,Urine Normal (Normal)
--- NOTE | 2017-01-09 18:04 | Electrocardiograph Report ---
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
[2017-01-09] MEDS: traZODone 50 MG TABLET PO SCH (20:29)
[2017-01-09] MEDS: Ondansetron 4 MG/2 ML VIAL IVP PRN (20:29)
[2017-01-09] MEDS ORDERED: *HR* Promethazine 25 MG/ML VIAL IVP ONE (23:48)
[2017-01-10 04:51] LABS: Basophils % 0.2 %; Hematocrit 36.9 % (35.3-44.9); Immature Granulocytes % 0.5 % (0-4); Lymphocytes # 0.8 K/mcL (0.6-4.6); Mean Corpuscular HGB Conc 33.6 g/dL (31.6-35.5); Mean Corpuscular Hemoglobin 24.9 pg (28.0-33.3); Mean Corpuscular Volume 74.1 fL (83.0-100.0); Mean Platelet Volume 8.7 fL (9.4-12.4); Monocytes # 0.8 K/mcL (0.0-1.3); Monocytes % 6.5 %; Neutrophils # 10.9 K/mcL (1.6-8.9); Platelet Count 410 K/mcL (140-400); Red Blood Count 4.98 M/mcL (3.82-4.97); Red Cell Distribution Width 16.4 % (11.5-14.5); Segmented Neutrophils % 86.8 %
[2017-01-10 04:54] LABS: Hemoglobin 12.4 g/dL (11.5-15.4)
[2017-01-10 05:04] LABS: BUN/Creatinine Ratio 15 (6-26); Blood Urea Nitrogen 11 mg/dL (7-20); Calcium 9.5 mg/dL (8.6-10.8); Carbon Dioxide 22 mEq/L (19-29); Chloride 95 mEq/L (98-109); Glucose 277 mg/dL (70-99); Osmolality,Calculated 279 (280-300); Potassium 3.1 mEq/L (3.5-4.5); Sodium 130 mEq/L (136-145); eGFR For African Americans > 60 (> 60); eGFR For Non-African Americans > 60 (> 60)
[2017-01-10] MEDS: *HR* Morphine 2 MG/ML SYRINGE IVP PRN (06:09)
[2017-01-10] MEDS: Famotidine 20 MG/2 ML VIAL IVP SCH ×2 (06:09→17:44)
[2017-01-10] MEDS: Ondansetron 4 MG/2 ML VIAL IVP PRN (08:36)
[2017-01-10] MEDS: Insulin LISPRO 300 UNITS/3 ML VIAL SQ SCH ×4 (08:36→22:14)
[2017-01-10] MEDS: Folic Acid 1 MG TABLET PO SCH (08:45)
--- NOTE | 2017-01-10 10:29 | Gastroenterology Consult Note ---
<Antonia Puente - Last Filed: 01/10/17 14:47> Date of Encounter: 01/10/17 Time of Encounter: 09:45 - Assessment and plan (1) Anemia Current Visit: Yes Status: Acute Assessment and plan: Pt presented with anemia with a Hgb 6.5. Occult blood was positive. She has improved to 12.4 following transfusion. She also has femur fracture being managed nonsurgically. She is a risky candidate for invasive work-up, was discussed with her daughter and she consents to EGD. Would suggest continuing PPI and monitor labs. Will proceed with EGD to investigate source of anemia. She is on hospice for alzheimer's and pallatve care may be considered. Qualifiers: Anemia type: unspecified type Qualified Code(s): D64.9 - Anemia, unspecified - Time Spent With Patient Total time spent is greater than 50% in coordination of care (as documented) at patient's floor/unit and/or counseling patient: GI History of Present Illness - Data of Consult Patient: new to practice Consult date: 01/10/17 Requesting Physician: Eugenio Garcia - Consult Narrative Reason for consult: anemia History of present illness: Ms. Ibarra is a 76 year old female who presented with a femur fracture after a fall at home. She is currently on hospice at home for end-stage alheimer's disease. She has a pmhx of colon resection which was reversed, DM, arthritis, GERD and PE. Hgb on admission was 6.5, pt was transfused and has increased to 12.4. She is non-verbal and shakes her head yes or no. No family is at bedside at this time. She denies abdominal pain, nausea or vomiting. Nurses deny any teresita bloody stools. Stool for occult blood was positive. Anticoagulants: none NSAIDS: clebrex Colonoscopy: EGD: Past Med Surg Social Fam HX - Past Medical History Medical history: arthritis, dementia, diabetes, GERD, hyperlipidemia, osteoporosis, pulmonary embolus Psychiatric history: anxiety, depression - Past Surgical History Surgical History: appendectomy, cholecystectomy, colostomy, hysterectomy - Social History Smoking Status: Former smoker Alcohol use: none Drug use: none - Family History Mother Living Status: Cause of : Heart disease Hx Family Cardiac Disorders: Yes (arterial disease) Father Living Status: Cause of : Cancer Hx Family Cancer: Yes (Leukemia) ROS unobtainable: due to mental status - Constitutional Vitals: Temp Pulse Resp BP Pulse Ox 98.3 F 97 18 128/74 95 01/10/17 06:55 01/10/17 06:55 01/10/17 06:55 01/10/17 06:55 01/10/17 06:55 Exam: CONSTITUTIONAL:~alert, shakes her head yes and no, answers simple questions, no acute distress.~HEAD:~normocephalic, bruising noted around right eye, steristrip above right eye and healing laceration below right eye.~EYES:~no jaundice.~NECK:~no obvious swelling.~HEART:~regular rate and rhythm, no murmurs. ~LUNGS:~fair air entry, bilaterally.~ABDOMEN:~non distended, soft, non tender, no masses pulpable, no organomegaly, surgical scar healed.~RECTAL EXAM:~bright red bloody stool noted.~EXTREMITIES:~no clubbing, cyanosis or edema.~SKIN:~ pallor noted, no stigmata of chronic liver disease.~NEUROLOGIC:~see above Results - Labs CBC & Chem 7: 01/10/17 10:26 01/10/17 04:37 Labs: Last Result Calcium 9.5 mg/dL (8.6-10.8) 01/10/17 04:37 Iron 183 mcg/dL (50-170) H 01/09/17 03:14 % Saturation 54 % (15-50) H 01/09/17 03:14 Transferrin 241 mg/dL (180-382) 01/09/17 03:14 Ferritin 44 ng/ml (5-204) 01/09/17 03:14 Troponin I 0.01 ng/mL (0-0.03) 01/09/17 03:14 Vitamin B12 512 pg/mL (213-816) 01/09/17 03:14 Folate 6.7 ng/mL (7.0-31.4) L 01/09/17 03:14 Stool Occult Blood Positive (Negative) A 01/08/17 20:45 Entire Visit Hgb 12.4 g/dL (11.5-15.4) D 01/10/17 04:37 Hct 36.9 % (35.3-44.9) 01/10/17 04:37 PT 11.8 Seconds (9.4-12.1) 01/07/17 21:34 Ferritin 44 ng/ml (5-204) 01/09/17 03:14 Folate 6.7 ng/mL (7.0-31.4) L 01/09/17 03:14 - ABG ABG results: PT/INR, D-dimer PT 11.8 Seconds (9.4-12.1) 01/07/17 21:34 - Impressions Impressions Chest X-Ray 01/09/17 09:27 IMPRESSION: No pneumothorax. No acute abnormality. Subacute appearing right 5th through 7th rib fractures. D/ / 01/09/2017 10:45:30 Sushil Mai MD / Candace Braden Interpreting Provider: Sushil Mai MD Consult Discharge Plan - Plan Referrals: NONE,PCP [Primary Care Provider] - <Ivory Philip - Last Filed: 01/10/17 17:51> Date of Encounter: 01/10/17 Time of Encounter: 13:30 - Time Spent With Patient Total time spent is greater than 50% in coordination of care (as documented) at patient's floor/unit and/or counseling patient: GI History of Present Illness - Data of Consult Requesting Physician: Eugenio Garcia - Consult Narrative History of present illness: Ms. Ibarra is a 76 year old female - Constitutional Vitals: Temp Pulse Resp BP Pulse Ox 98.7 F 89 16 150/89 99 01/10/17 14:58 01/10/17 14:58 01/10/17 14:58 01/10/17 14:58 01/10/17 14:58 Results - Labs CBC & Chem 7: 01/10/17 10:26 01/10/17 04:37 Labs: Last Result Calcium 9.5 mg/dL (8.6-10.8) 01/10/17 04:37 Iron 183 mcg/dL (50-170) H 01/09/17 03:14 % Saturation 54 % (15-50) H 01/09/17 03:14 Transferrin 241 mg/dL (180-382) 01/09/17 03:14 Ferritin 44 ng/ml (5-204) 01/09/17 03:14 Troponin I 0.01 ng/mL (0-0.03) 01/09/17 03:14 Vitamin B12 512 pg/mL (213-816) 01/09/17 03:14 Folate 6.7 ng/mL (7.0-31.4) L 01/09/17 03:14 Stool Occult Blood Positive (Negative) A 01/08/17 20:45 Entire Visit Hgb 12.6 g/dL (11.5-15.4) 01/10/17 10:26 Hct 38.0 % (35.3-44.9) 01/10/17 10:26 PT 11.8 Seconds (9.4-12.1) 01/07/17 21:34 Ferritin 44 ng/ml (5-204) 01/09/17 03:14 Folate 6.7 ng/mL (7.0-31.4) L 01/09/17 03:14 - ABG ABG results: PT/INR, D-dimer PT 11.8 Seconds (9.4-12.1) 01/07/17 21:34 - Impressions Impressions Chest X-Ray 01/09/17 07:45 IMPRESSION: Suspect subacute to chronic fractures involving the right 5th through 7th ribs. Correlate with point tenderness. Interface projecting over the right lateral chest is favored to represent a skin fold. If there is clinical concern for pneumothorax, consider repeating the chest radiograph or obtaining PA and lateral chest radiographs. Otherwise, negative portable chest. The findings were sent to the Radiology Results Communication Center at 8:24 am on 01/09/2017to be communicated to a licensed caregiver. D/ / 01/09/2017 08:29:42 Clive Aquino MD / Candace Braden Interpreting Provider: Clive Aquino MD - Attending Attestation I examined this patient and my medical decision-making was reviewed with the Resident Physician. I agree with the documented findings, disposition and treatment plan as described except to the extent set forth below.
[2017-01-10 10:33] LABS: Hemoglobin 12.6 g/dL (11.5-15.4)
[2017-01-10] MEDS: FLUoxetine HCl Oral Soln 20 MG/5 ML UDC PO SCH (11:21)
--- NOTE | 2017-01-10 13:16 | Anesthesia Evaluation PreOp ---
Date of Encounter: 01/10/17 Time of Encounter: 13:14 - Past History Planned Operation: EGD Cardiac History: Denies any Significant Hx Pulmonary History: Other (Azheimers Dementia) Other Medical History: Diabetes Type II : No Alcohol Use: none Drug use: none Medications and Allergies Brimonidine Tartrate [Alphagan P] 1 drop OP BID 01/08/17 [History] Calcium Carbonate [Calcium] 250 mg PO TID 01/08/17 [History] Celecoxib [Celebrex] 200 mg PO BID 01/08/17 [History] Colesevelam HCl [Welchol] 625 mg PO BID 01/08/17 [History] Diphenoxylate/Atropine [Lomotil 2.5 mg/0.025 mg] 1 tab PO QID PRN 01/08/17 [ History] FLUoxetine HCl [PROzac] 20 mg PO DAILY 01/08/17 [History] Fluticasone Propionate Nasal [Flonase] 2 spray NS DAILY 01/08/17 [History] Loratadine [Allergy Relief] 10 mg PO DAILY 01/08/17 [History] Metoclopramide [Reglan] 5 mg PO TID PRN 01/08/17 [History] Morphine Sulfate SR (12 HR) [MS Contin] 1 tab PO Q12HR 01/08/17 [History] Ondansetron [Zofran] 8 mg PO Q4H PRN 01/08/17 [History] Oxycodone HCl 10 mg PO Q4H PRN 01/08/17 [History] Sertraline [Zoloft] 25 mg PO DAILY 01/08/17 [History] clonazePAM [Klonopin] 0.5 mg PO BID 01/08/17 [History] traZODone [TraZODone] 50 mg PO HS 01/08/17 [History] 3 Allergy/AdvReac Type Severity Reaction Status Date / Time No Known Allergies Allergy Verified 11/08/14 17:42 - Meds/Allergy Pre-op Review Medications Reviewed: Yes Allergies Reviewed: Yes Beta Blockers on Current Med List: No Anesthesia Results - Labs 01/10/17 10:26 01/10/17 04:37 - Imaging EKG: image reviewed (SR) Anesthesia Exam O2 Sat Weight 55.5 kg O2 Sat by Pulse Oximetry 94 O2 Sat by Pulse Oximetry 95 O2 Sat by Pulse Oximetry 93 O2 Sat by Pulse Oximetry 95 O2 Sat by Pulse Oximetry 94 O2 Sat by Pulse Oximetry 96 Vital Signs Temp Pulse Resp BP Pulse Ox 98.7 F 76 16 128/63 99 01/07/17 20:38 01/07/17 20:38 01/07/17 20:38 01/07/17 20:38 01/07/17 20:38 Vital Signs/O2 Sat, Most Current Temp Pulse Resp BP Pulse Ox 98.6 F 87 16 131/67 94 01/10/17 11:12 01/10/17 11:12 01/10/17 11:12 01/10/17 11:12 01/10/17 11:12 Height: 5'5'' Weight: 122# - HEENT Pupil (Motor): Pupils equal, EOMI Mallampati: II Teeth: Edentulous Oral Opening: Greater than 3 - MACHINE SHOP REPAIR TECHNICIAN LOC: Oriented MACHINE SHOP REPAIR TECHNICIAN Motor: Normal RUE, Normal LUE, Normal RLE, Normal LLE, Normal Face MACHINE SHOP REPAIR TECHNICIAN Sensory: Normal: RUE, LUE, RLE, LLE, Face - Cardiac Rhythm: Regular Murmur: None JVD: No Carotid Bruit: No - Pulmonary Breath Sounds: bilateral Clear Respiratory Effort: Symmetrical Anesthesia Assess/Plan ASA Score: 3 Anesthetic Plan: MAC Autologous Blood: Yes Monitoring Plan: Standard Monitors Recovery Plan: Other
--- NOTE | 2017-01-10 14:55 | Internal Med Progress Note ---
<Hanna Ward - Last Filed: 01/10/17 14:52> Date of Encounter: 01/10/17 Time of Encounter: 11:15 - Assessment and plan (1) Right femoral fracture Current Visit: Yes Status: Acute Assessment and plan: Xray of right hip at [facility] showed right proximal femoral fracture. likely mechanical fall, but patient does have alzheimers and states she cannot fully remember what happened. Plan: norco and morphine PRN for pain fall precautions ortho recommends non operative management: recommend Toe-touch weightbearing to the right lower extremity Follow up with orthopedic surgery 1 week after discharge PT/OT patient will go to a rehabilitation center upon discharge Qualifiers: Encounter type: initial encounter Femur location: other head and neck Fracture type: closed Qualified Code(s): S72.091A - Other fracture of head and neck of right femur, initial encounter for closed fracture (2) Fever Current Visit: Yes Status: Acute Assessment and plan: patient's fever has resolved chest xray and UA had no evidence of consolidation Qualifiers: Fever type: unspecified Qualified Code(s): R50.9 - Fever, unspecified (3) Rib fractures Current Visit: Yes Status: Acute Assessment and plan: 1V CXR showed right lateral rib fractures present in ribs 5-7, likely subacute to chronic. There was concern for possible pneumothorax on CXR so 2V CXR was ordered -2V CXR showed no pneumothorax or acute abnormality Qualifiers: Encounter type: sequela Rib fracture type: multiple ribs Fracture type: closed Laterality: unspecified laterality Qualified Code(s): S22.49XS - Multiple fractures of ribs, unspecified side, sequela (4) Anemia Current Visit: Yes Status: Acute Assessment and plan: etiology likely acute bood loss anemia. stool occult blood is positive. Hg 6.5 on admission and is currently 12.6 patient has received 2 units blood iron profile and B12 within normal limits folate slightlly low Plan: gastroenterology is going to scope the patient today folic acid supplementation GI recommends starting patient on PPI Qualifiers: Anemia type: unspecified type Qualified Code(s): D64.9 - Anemia, unspecified (5) Chest pain Current Visit: Yes Status: Resolved Assessment and plan: EKG unremarkable, tropes x3 negative. continue to monitor. Qualifiers: Chest pain type: unspecified Qualified Code(s): R07.9 - Chest pain, unspecified (6) Type 2 diabetes mellitus Current Visit: Yes Status: Acute Assessment and plan: Glucose is 277, improved from yesterday's 77 A1C 6.4 diabetic diet low dose SSI with ACHS accuchecks. Qualifiers: Diabetes mellitus complication status: with unspecified complications Diabetes mellitus assisted insulin use: with tool engineer use Qualified Code(s) : E11.8 - Type 2 diabetes mellitus with unspecified complications; Z79.4 - cottage attendant (current) use of insulin (7) Hospice care patient Current Visit: Yes Status: Acute Assessment and plan: Patient is hospice for Alzheimes disease per patient's daughter. will attempt to discuss code status if daughter is present in room. (8) Alzheimer disease Current Visit: Yes Status: Acute Assessment and plan: Patient currently alert and oriented x1, lives at home with her daughter continue home medications Qualifiers: Alzheimer's disease onset: unspecified onset Dementia behavioral disturbance: without behavioral disturbance Qualified Code(s): G30.9 - Alzheimer's disease, unspecified; F02.80 - Dementia in other diseases classified elsewhere without behavioral disturbance (9) DVT prophylaxis Current Visit: Yes Status: Acute Assessment and plan: EPCDs - Subjective Interval history: Patient is lying in bed with eyes closed. She will answer no to all the questions I asked her with her eyes closed. She stated that she does not know where she is. Social works and they are working on getting her into the [address] [place] [address] [facility]. - Constitutional Vitals: Temp Pulse Resp BP Pulse Ox 98.6 F 103 16 166/95 98 01/10/17 14:13 01/10/17 14:13 01/10/17 14:13 01/10/17 14:13 01/10/17 14:13 General appearance: Present: pleasant, no acute distress Exam: Gen.: Vitals noted. No acute distress. AAOx3 HEENT: Normocephalic, atraumatic Cardiac: RRR, no murmur, +S1/S2 Pulmonary: CTA bilaterally, equal chest expansion Abdomen: soft, nontender, Bowel sounds noted, no guarding MSK: no joint swelling noted Extremities: no BLE edema, nontender calf, no cyanosis or clubbing Neuro: A&Ox3, moves all extremities Psych: Appropriate mood and behavior Internal Medicine: Result - Labs CBC & Chem 7: 01/10/17 10:26 01/10/17 04:37 Labs: Short CBC 01/10/17 01/10/17 Range/Units 04:37 10:26 WBC 12.6 H D (4.3-11.1) K/mcL Hgb 12.4 D 12.6 (11.5-15.4) g/dL Hct 36.9 38.0 (35.3-44.9) % Plt Count 410 H (140-400) K/mcL Neutrophils # 10.9 H (1.6-8.9) K/mcL BMP 01/10/17 04:37 Sodium 130 L Potassium 3.1 L Chloride 95 L Carbon Dioxide 22 BUN 11 Creatinine 0.75 Glucose 277 H Calcium 9.5 - ABG Interpretation ABG results: PT/INR, D-dimer PT 11.8 Seconds (9.4-12.1) 01/07/17 21:34 - Impressions Impressions Chest X-Ray 01/09/17 07:45 IMPRESSION: Suspect subacute to chronic fractures involving the right 5th through 7th ribs. Correlate with point tenderness. Interface projecting over the right lateral chest is favored to represent a skin fold. If there is clinical concern for pneumothorax, consider repeating the chest radiograph or obtaining PA and lateral chest radiographs. Otherwise, negative portable chest. The findings were sent to the Radiology Results Communication Center at 8:24 am on 01/09/2017to be communicated to a licensed caregiver. D/ / 01/09/2017 08:29:42 Clive Aquino MD / Candace Braden Interpreting Provider: Clive Aquino MD - VTE Documentation of Mechanical Device: Intermittent pneumatic compression device Consult Discharge Plan - Plan Referrals: NONE,PCP [Primary Care Provider] - <Eugenio Garcia H - Last Filed: 01/11/17 08:58> Date of Encounter: 01/11/17 - Constitutional Vitals: Temp Pulse Resp BP Pulse Ox 99.4 F 102 16 146/90 97 01/11/17 07:22 01/11/17 07:22 01/11/17 07:22 01/11/17 07:22 01/11/17 07:22 Internal Medicine: Result - Labs CBC & Chem 7: 10/03/17 05:47 01/11/17 05:47 Labs: Short CBC 01/10/17 01/10/17 01/11/17 Range/Units 10:26 20:30 05:47 WBC 12.9 H (4.3-11.1) K/mcL Hgb 12.6 12.8 12.7 (11.5-15.4) g/dL Hct 38.0 39.2 38.0 (35.3-44.9) % Plt Count 465 H (140-400) K/mcL Neutrophils # 10.4 H (1.6-8.9) K/mcL BMP 01/11/17 05:47 Sodium 134 L Potassium 3.0 L Chloride 98 Carbon Dioxide 23 BUN 23 H D Creatinine 0.75 Glucose 199 H Calcium 9.4 - ABG Interpretation ABG results: PT/INR, D-dimer PT 11.8 Seconds (9.4-12.1) 01/07/17 21:34 - Impressions Impressions Chest X-Ray 01/09/17 07:45 IMPRESSION: Suspect subacute to chronic fractures involving the right 5th through 7th ribs. Correlate with point tenderness. Interface projecting over the right lateral chest is favored to represent a skin fold. If there is clinical concern for pneumothorax, consider repeating the chest radiograph or obtaining PA and lateral chest radiographs. Otherwise, negative portable chest. The findings were sent to the Radiology Results Communication Center at 8:24 am on 01/09/2017to be communicated to a licensed caregiver. D/ / 01/09/2017 08:29:42 Clive Aquino MD / Candace Braden Interpreting Provider: Clive Aquino MD - Attending Attestation Acute blood loss anemia likely secondary to upper GI bleed Endoscopy, Protonix I examined this patient and my medical decision-making was reviewed with the Resident Physician. I agree with the documented findings, disposition and treatment plan as described except to the extent set forth below.
[2017-01-10 21:15] LABS: Hematocrit 39.2 % (35.3-44.9); Hemoglobin 12.8 g/dL (11.5-15.4)
[2017-01-11] MEDS: *HR* HYDROcodone/Acet 5/325 mg TABLET PO PRN ×3 (02:29→17:38)
[2017-01-11 06:38] LABS: BUN/Creatinine Ratio 31 (6-26); Calcium 9.4 mg/dL (8.6-10.8); Carbon Dioxide 23 mEq/L (19-29); Chloride 98 mEq/L (98-109); Glucose 199 mg/dL (70-99); Osmolality,Calculated 287 (280-300); Sodium 134 mEq/L (136-145); eGFR For African Americans > 60 (> 60); eGFR For Non-African Americans > 60 (> 60)
[2017-01-11 06:41] LABS: Blood Urea Nitrogen 23 mg/dL (7-20)
[2017-01-11 06:50] LABS: Basophils % 0.2 %; Hemoglobin 12.7 g/dL (11.5-15.4); Immature Granulocytes % 0.6 % (0-4); Lymphocytes # 1.2 K/mcL (0.6-4.6); Lymphocytes % 9.4 %; Mean Corpuscular HGB Conc 33.4 g/dL (31.6-35.5); Monocytes # 1.2 K/mcL (0.0-1.3); Monocytes % 9.6 %; Neutrophils # 10.4 K/mcL (1.6-8.9); Platelet Count 465 K/mcL (140-400); Red Blood Count 5.07 M/mcL (3.82-4.97); Red Cell Distribution Width 17.8 % (11.5-14.5); Segmented Neutrophils % 80.2 %
[2017-01-11] MEDS: Folic Acid 1 MG TABLET PO SCH (08:37)
[2017-01-11] MEDS: FLUoxetine HCl Oral Soln 20 MG/5 ML UDC PO SCH (08:37)
[2017-01-11] MEDS: Insulin LISPRO 300 UNITS/3 ML VIAL SQ SCH ×4 (08:39→21:53)
--- NOTE | 2017-01-11 09:00 | Discharge Summary ---
Date of Encounter: 01/11/17 Time of Encounter: 08:58 - Discharge Diagnosis (1) Anemia Priority: Primary Status: Acute Comments: Acute blood lows anemia secondary to upper GI bleed/2 gastric angiectasias status post treatment with argon plasma coagulation Qualifiers: Anemia type: other cause Other causes of anemia: acute posthemorrhagic Qualified Code(s): D62 - Acute posthemorrhagic anemia (2) Fracture of right hip Priority: Primary Status: Acute Comments: Xray of right hip at [facility] showed right proximal femoral fracture. likely mechanical fall Qualifiers: Encounter type: initial encounter Fracture type: closed Qualified Code(s) : S72.001A - Fracture of unspecified part of neck of right femur, initial encounter for closed fracture (3) Depression Priority: Secondary Status: Acute Comments: Continue fluoxetine Qualifiers: Depression Type: major depressive disorder Active/Remission status: remission status unspecified Qualified Code(s): F32.9 - Major depressive disorder, single episode, unspecified (4) Alzheimer disease Priority: Secondary Status: Acute Qualifiers: Alzheimer's disease onset: unspecified onset Dementia behavioral disturbance: without behavioral disturbance Qualified Code(s): G30.9 - Alzheimer's disease, unspecified; F02.80 - Dementia in other diseases classified elsewhere without behavioral disturbance (5) Rib fractures Priority: Secondary Status: Acute Qualifiers: Encounter type: sequela Rib fracture type: multiple ribs Fracture type: closed Laterality: unspecified laterality Qualified Code(s): S22.49XS - Multiple fractures of ribs, unspecified side, sequela (6) Type 2 diabetes mellitus Priority: Secondary Status: Acute Qualifiers: Diabetes mellitus complication status: with unspecified complications Diabetes mellitus shelter insulin use: with shelter use Qualified Code(s) : E11.8 - Type 2 diabetes mellitus with unspecified complications; Z79.4 - usability strategist (current) use of insulin - Discharge Medications Prescriptions: clonazePAM [Klonopin] 0.5 mg PO BID #10 tablet Lisinopril [Zestril] 10 mg PO DAILY #30 tablet Metoprolol XL (24 HR) Succ [Toprol XL] 12.5 mg PO DAILY #30 tab.er.24h Omeprazole [PriLOSEC] 40 mg PO BID #60 cap Oxycodone HCl 10 mg PO Q4H PRN #25 tablet PRN Reason: Pain Home Medications: Brimonidine Tartrate [Alphagan P] 1 drop OP BID 01/08/17 [History] Calcium Carbonate [Calcium] 250 mg PO TID 01/08/17 [History] Colesevelam HCl [Welchol] 625 mg PO BID 01/08/17 [History] Diphenoxylate/Atropine [Lomotil 2.5 mg/0.025 mg] 1 tab PO QID PRN 01/08/17 [ History] FLUoxetine HCl [Prozac] 20 mg PO DAILY 01/08/17 [History] Fluticasone Propionate Nasal [Flonase] 2 spray NS DAILY 01/08/17 [History] Loratadine [Allergy Relief] 10 mg PO DAILY 01/08/17 [History] Metoclopramide [Reglan] 5 mg PO TID PRN 01/08/17 [History] Morphine Sulfate SR (12 HR) [MS Contin] 1 tab PO Q12HR 01/08/17 [History] Ondansetron [Zofran] 8 mg PO Q4H PRN 01/08/17 [History] Sertraline [Zoloft] 25 mg PO DAILY 01/08/17 [History] Lisinopril [Zestril] 10 mg PO DAILY #30 tablet 01/11/17 [Rx] Metoprolol XL (24 HR) Succ [Toprol XL] 12.5 mg PO DAILY #30 tab.er.24h 01/11/17 [Rx] Omeprazole [PriLOSEC] 40 mg PO BID #60 cap 01/11/17 [Rx] Oxycodone HCl 10 mg PO Q4H PRN #25 tablet 01/11/17 [Rx] clonazePAM [Klonopin] 0.5 mg PO BID #10 tablet 01/11/17 [Rx] traZODone [TraZODone] 50 mg PO HS PRN #0 01/11/17 [Rx] Allergies/Adverse Reactions: 3 Allergy/AdvReac Type Severity Reaction Status Date / Time No Known Allergies Allergy Verified 11/08/14 17:42 Procedures/tests Complete & Pending: Procedures Performed prior 72 hours Category Date Time Status EKG [ECG 12 lead ECG] [ECG] Stat Y 01/08/17 07:59 Completed Date of admission: 01/07/17 20:20 Primary care physician: PCP NONE Consults: 01/07/17 21:16 Consult to Orthopedic Surgery [CONS] Routine Consulting Provider: [facility] Reason for Consult: 76F transferred from [facility] with right femur fracture. Call Completed: Yes 01/08/17 08:21 Consult to Occupational Therapy [CONS] Routine Comment: Evaluate, develop and implement POC Reason for Consult: right hip fracture Consult to Physical Therapy [CONS] Routine Comment: Evaluate, develop and implement POC Reason for Consult: right hip fracture 01/09/17 08:05 Consult to Gastroenterology [CONS] Routine Consulting Provider: Mel Tony Reason for Consult: acute blood loss anemia Call Completed: No 01/09/17 15:48 Consult to Utility Maintenance Worker [CONS] Routine Reason for SW Consult: d/c planning - Patient Status Disposition: Transfer SNF Condition: Fair Overall status at discharge: patient is progressing back to baseline - Discharge Instructions Follow Up With: NONE,PCP [Primary Care Provider] - Additional Instructions: Follow-up with primary care physician within the next 7 days after being discharged from the rehabilitation facility. Follow-up with orthopedic surgery within the next 2 weeks. Discontinue celecoxib. Continue omeprazole 40 mg twice a day. Follow up with GI within the next 3 weeks. Fall precautions - Diet and Activity Activity: increase activity as tolerated Diet: diabetic diet Hospital course: Ms. Ibarra is a 76 year old female with a past medical history of diabetes not insulin-dependent, arthritis, and Alzeimer's dementia, GERD, osteoporosis, pulmonary emboli in the past, who was transferred from [facility] with right femur fracture. Patient reported she tripped at home and injured her right leg and she also hit her face and suffered a laceration to her right cheek. She reported pain to her right hip and thigh. She denied any lightheadedness or dizziness preceding fall. She denied any chest pain, palpitations, shortness of breath, fever, chills, sweats, nausea, vomiting or diarrhea. Evaluation at [facility] included an xray of right hip which reportedly demonstrated a right proximal femur fracture. She has been very depressed as her recently. Hg was found to be 6.5 on admission for which she received 2 units of blood. Chest x-ray showed subacute-appearing right fifth through 7 rib fractures. Orthopedic surgery was consulted, ortho recommended non operative management: recommend Toe-touch weightbearing to the right lower extremity Follow up with orthopedic surgery 1 week after discharge The patient underwent an upper endoscopy that showed 2 gastric angiectasias status post treatment with argon plasma coagulation. She was kept on famotidine and then was started on Protonix. Hemoglobin today is 12.7. Celecoxib was discontinued. The patient is a stable to be transferred to a rehabilitation facility to continue her plan of care - Time Spent with Patient Total time spent providing and/or coordinating discharge services: Greater than 30 minutes (40 min) - Constitutional Vitals: Temp Pulse Resp BP Pulse Ox 99.4 F 102 16 146/90 97 01/11/17 07:22 01/11/17 07:22 01/11/17 07:22 01/11/17 07:22 01/11/17 07:22 General appearance: Present: A&O X 2, pleasant, no acute distress - Head Head exam: Present: atraumatic, normocephalic - Eye Eye exam: Present: PERRL, conjuntiva pink, sclera anicteric Pupils: Present: PERRL - Neck Neck exam general surgery: Present: supple, trachea midline. Absent: lymphadenopathy - Respiratory Respiratory exam: Present: CTAB. Absent: accessory muscle use, rales, rhonchi, wheezes - Cardiovascular Cardiovascular exam: Present: RRR, +S1, +S2. Absent: diastolic murmur, gallop, rubs, systolic murmur - GI/Abdominal GI/Abdominal exam: Present: normal bowel sounds, soft, no peritoneal signs. Absent: distended, tenderness - Extremities Exam Extremities exam: Present: warm, radial pulses palpable and symmetrical. Absent : calf tenderness, cyanotic, pedal edema - Neurological Exam Neurological exam: Present: CN II-XII intact, no focal deficits. Absent: oriented X3, pronater drift, facial droop, speech deficit - Skin Skin exam: Present: dry. Absent: intact (Small bruises and excoriations right periorbital area) - VTE Documentation of Mechanical Device: Intermittent pneumatic compression device
--- NOTE | 2017-01-11 09:16 | Physician Discharge Referral ---
ExtendedCare Referral Info Provider in Charge after Transfer: PCP Institutional Level of Care: Skilled - Diagnosis (1) Anemia Status: Acute (2) Fracture of right hip Status: Acute (3) Depression Status: Acute (4) Alzheimer disease Status: Acute (5) Rib fractures Status: Acute (6) Type 2 diabetes mellitus Status: Acute - Transfer Medications Prescriptions: clonazePAM [Klonopin] 0.5 mg PO BID #10 tablet Lisinopril [Zestril] 10 mg PO DAILY #30 tablet Metoprolol XL (24 HR) Succ [Toprol XL] 12.5 mg PO DAILY #30 tab.er.24h Omeprazole [PriLOSEC] 40 mg PO BID #60 cap Oxycodone HCl 10 mg PO Q4H PRN #25 tablet PRN Reason: Pain Home Medications: Brimonidine Tartrate [Alphagan P] 1 drop OP BID 01/08/17 [History] Calcium Carbonate [Calcium] 250 mg PO TID 01/08/17 [History] Colesevelam HCl [Welchol] 625 mg PO BID 01/08/17 [History] Diphenoxylate/Atropine [Lomotil 2.5 mg/0.025 mg] 1 tab PO QID PRN 01/08/17 [ History] FLUoxetine HCl [Prozac] 20 mg PO DAILY 01/08/17 [History] Fluticasone Propionate Nasal [Flonase] 2 spray NS DAILY 01/08/17 [History] Loratadine [Allergy Relief] 10 mg PO DAILY 01/08/17 [History] Metoclopramide [Reglan] 5 mg PO TID PRN 01/08/17 [History] Morphine Sulfate SR (12 HR) [MS Contin] 1 tab PO Q12HR 01/08/17 [History] Ondansetron [Zofran] 8 mg PO Q4H PRN 01/08/17 [History] Sertraline [Zoloft] 25 mg PO DAILY 01/08/17 [History] Lisinopril [Zestril] 10 mg PO DAILY #30 tablet 01/11/17 [Rx] Metoprolol XL (24 HR) Succ [Toprol XL] 12.5 mg PO DAILY #30 tab.er.24h 01/11/17 [Rx] Omeprazole [PriLOSEC] 40 mg PO BID #60 cap 01/11/17 [Rx] Oxycodone HCl 10 mg PO Q4H PRN #25 tablet 01/11/17 [Rx] clonazePAM [Klonopin] 0.5 mg PO BID #10 tablet 01/11/17 [Rx] traZODone [TraZODone] 50 mg PO HS PRN #0 01/11/17 [Rx] Allergies/Adverse Reactions: 3 Allergy/AdvReac Type Severity Reaction Status Date / Time No Known Allergies Allergy Verified 11/08/14 17:42 - Respiratory Orders Smoking Cessation: Smoking cessation has been advised. For more information, call the [place] Tobacco Quit Line at 7-416-RFVK-NOW. - Advance Directives Code Status: Full Code - Diet Orders No Added Salt (RICKEY) (Diabetic diet) House Supplement per Dietary: Follow-up with primary care physician within the next 7 days after being discharged from the rehabilitation facility. Follow-up with orthopedic surgery within the next 2 weeks. Discontinue celecoxib. Continue omeprazole 40 mg twice a day. Follow up with GI within the next 3 weeks. Fall precautions CERTIFICATION: I certify that the transfer of the above named patient to an Extended Care Facility is necessary for the continuing treatment of the diagnosis listed. The above information is true and accurate reflection of patient's current condition. Confidential - Redisclosure prohibited without a patient's written consent.
[2017-01-11] MEDS: Metoprolol XL (24 HR) Succ 25 MG TAB.ER.24H PO SCH (10:19)
[2017-01-11] MEDS: Pantoprazole 40 MG VIAL IVP SCH ×2 (10:20→17:49)
[2017-01-11] MEDS ORDERED: *HR* Propofol 200 MG/20 ML VIAL IVP ONE (13:27)
[2017-01-11] MEDS ORDERED: Lidocaine -MPF 2% 5 ML VIAL INFILT ONE (13:27)
[2017-01-11 15:53] LABS: Bilirubin,Urine Small (Negative); Blood,Urine Small (Negative); Clarity,Urine Cloudy (Clear); Color,Urine Dark Yellow (Yellow); Glucose,Urine (UA) Normal (Normal); Ketones,Urine 15 mg/dL (Negative); Leukocyte Esterase,Urine Moderate (Negative); Nitrite,Urine Positive (Negative); PH,Urine 5.5 pH Units (5.0-8.0); Protein,Urine 100 mg/dL (Neg-Trace); Specific Gravity,Urine 1.023 (1.010-1.025); Urobilinogen,Urine Normal (Normal)
[2017-01-11 15:55] LABS: Bacteria,Urine Many per hpf (None-Few); Hyaline Casts,Urine Few per lpf (None-Few); Squamous Epithelial Cell,Urine Many per lpf (None-Few); WBC,Urine 50-100 per hpf (0-3)
--- NOTE | 2017-01-11 17:29 | Electrocardiograph Report ---
[address] [place], [place] [address] Test Date: 2017-01-10 Pat Name: Larissa Ibarra Department: 114 Room: [facility] Gender: F Archival Studies Professor: : 1940 Requested By: Eugenio Garcia Order Number: [id number] Reading MD: Maria Antonia Mckenzie Measurements Intervals [place] Rate: 99 P: 55 PA: 136 QRS: -54 QRSD: 105 T: 50 QT: 305 QTc: 361 Interpretive Statements SINUS RHYTHM LEFT ANTERIOR FASCICULAR BLOCK POSSIBLE ANTERIOR MYOCARDIAL INFARCTION, PROBABLY OLD Electronically Signed On 01-11-2017 17:27:33 EDT by Maria Antonia Mckenzie
[2017-01-11] MEDS: Ondansetron 4 MG/2 ML VIAL IVP PRN (21:48)
[2017-01-11] MEDS: *HR* Morphine 2 MG/ML SYRINGE IVP PRN (21:57)
[2017-01-12] MEDS: *HR* HYDROcodone/Acet 5/325 mg TABLET PO PRN ×2 (04:02→10:22)
[2017-01-12] MEDS: Folic Acid 1 MG TABLET PO SCH (07:55)
[2017-01-12] MEDS: Pantoprazole 40 MG VIAL IVP SCH (07:55)
[2017-01-12] MEDS: Metoprolol XL (24 HR) Succ 25 MG TAB.ER.24H PO SCH (07:55)
[2017-01-12] MEDS: FLUoxetine HCl Oral Soln 20 MG/5 ML UDC PO SCH (07:55)
[2017-01-12] MEDS: Insulin LISPRO 300 UNITS/3 ML VIAL SQ SCH (07:56)
[2017-01-12 11:10] VITALS: BP 102/65
--- NOTE | 2017-01-12 14:50 | Internal Med Progress Note ---
Date of Encounter: 01/12/17 Time of Encounter: 14:48 - Assessment and plan (1) Anemia Status: Acute Assessment and plan: Hg 6.5 on admission. 2 units blood blood transfused iron profile and B12 within normal limits. folate slightlly low. etiology likely acute bood loss anemia. stool occult blood is positive. GI was consulted The patient underwent an upper endoscopy that showed 2 gastric angiectasias status post treatment with argon plasma coagulation. She was kept on famotidine and then was started on Protonix. Follow-up with primary care physician within the next 7 days after being discharged from the rehabilitation facility. Follow-up with orthopedic surgery within the next 2 weeks. Discontinue celecoxib. Continue omeprazole 40 mg twice a day. Follow up with GI within the next 3 weeks. Fall precautions Qualifiers: Anemia type: other cause Other causes of anemia: acute posthemorrhagic Qualified Code(s): D62 - Acute posthemorrhagic anemia (2) Fracture of right hip Status: Acute Assessment and plan: Xray of right hip at [facility] showed right proximal femoral fracture. likely mechanical fall, but patient does have alzheimers and states she cannot fully remember what happened. norco PRN for pain fall precautions ortho recommends non operative management: recommend Toe-touch weightbearing to the right lower extremity Follow up with orthopedic surgery 1 week after discharge PT/OT patient will go to a rehabilitation center Qualifiers: Encounter type: initial encounter Fracture type: closed Qualified Code(s) : S72.001A - Fracture of unspecified part of neck of right femur, initial encounter for closed fracture (3) Depression Status: Acute Assessment and plan: Continue Prozac and Klonopin Qualifiers: Depression Type: major depressive disorder Active/Remission status: remission status unspecified Qualified Code(s): F32.9 - Major depressive disorder, single episode, unspecified (4) Alzheimer disease Status: Acute Assessment and plan: Patient currently alert and oriented x1, lives at home with her daughter continue home medications Qualifiers: Alzheimer's disease onset: unspecified onset Dementia behavioral disturbance: without behavioral disturbance Qualified Code(s): G30.9 - Alzheimer's disease, unspecified; F02.80 - Dementia in other diseases classified elsewhere without behavioral disturbance (5) Rib fractures Status: Acute Assessment and plan: 1V CXR showed right lateral rib fractures present in ribs 5-7, likely subacute to chronic. There was concern for possible pneumothorax on CXR so 2V CXR was ordered -2V CXR showed no pneumothorax or acute abnormality Qualifiers: Encounter type: sequela Rib fracture type: multiple ribs Fracture type: closed Laterality: unspecified laterality Qualified Code(s): S22.49XS - Multiple fractures of ribs, unspecified side, sequela (6) Type 2 diabetes mellitus Status: Acute Assessment and plan: A1C 6.4 diabetic diet low dose SSI with ACHS accuchecks. Qualifiers: Diabetes mellitus complication status: with unspecified complications Diabetes mellitus retirement insulin use: with retirement use Qualified Code(s) : E11.8 - Type 2 diabetes mellitus with unspecified complications; Z79.4 - [facility] (current) use of insulin - Constitutional Vitals: Temp Pulse Resp BP Pulse Ox 98.8 F 70 15 102/65 97 01/12/17 11:10 01/12/17 11:10 01/12/17 11:10 01/12/17 11:10 01/12/17 11:10 General appearance: Present: A&O X 2, pleasant, no acute distress Internal Medicine: Result - Labs CBC & Chem 7: 01/11/17 05:47 01/11/17 05:47 Labs: Urine 01/11/17 Range/Units 15:30 Urine Color Dark Yellow (Yellow) Urine Clarity Cloudy A (Clear) Urine pH 5.5 (5.0-8.0) pH Units Ur Specific [place] 1.023 (1.010-1.025) Urine Protein 100 H (Neg-Trace) mg/dL Urine Glucose (UA) Normal (Normal) mg/dL - ABG Interpretation ABG results: PT/INR, D-dimer PT 11.8 Seconds (9.4-12.1) 01/07/17 21:34 - VTE Documentation of Mechanical Device: Intermittent pneumatic compression device Consult Discharge Plan - Plan Additional Instructions: Follow-up with primary care physician within the next 7 days after being discharged from the rehabilitation facility. Follow-up with orthopedic surgery within the next 2 weeks. Discontinue celecoxib. Continue omeprazole 40 mg twice a day. Follow up with GI within the next 3 weeks. Fall precautions Referrals: NONE,PCP [Primary Care Provider] - Barrington Phillip MD [Partnered Physician] - 01/19/17 3:00 pm Ivory Philip MD [Partnered Physician] - Prescriptions: clonazePAM [Klonopin] 0.5 mg PO BID #10 tablet Lisinopril [Zestril] 10 mg PO DAILY #30 tablet Metoprolol XL (24 HR) Succ [Toprol XL] 12.5 mg PO DAILY #30 tab.er.24h Omeprazole [PriLOSEC] 40 mg PO BID #60 cap Oxycodone HCl 10 mg PO Q4H PRN #25 tablet PRN Reason: Pain
== END 2017-01-12 13:20 | DRG 535 ==
LOC: SUATTDRO 20:20 → 3NENU 20:20
PROVIDERS: ADMIT Internal Medicine; ATTEND Internal Medicine

== ENCOUNTER 2017-03-15 15:55 | Inpatient (IN) ==
[2017-03-15] MEDS ORDERED: *HR* Morphine 2 MG/ML SYRINGE IVP ONE (16:15)
[2017-03-15] MEDS ORDERED: Ondansetron 4 MG/2 ML VIAL IVP ONE (16:15)
[2017-03-15 16:50] LABS: Basophils % 0.3 %; Eosinophils # 0.1 K/mcL (0.0-0.6); Eosinophils % 1.1 %; Hematocrit 32.4 % (35.3-44.9); Hemoglobin 10.4 g/dL (11.5-15.4); Immature Granulocytes % 0.5 % (0-4); Lymphocytes # 0.9 K/mcL (0.6-4.6); Lymphocytes % 14.3 %; Mean Corpuscular HGB Conc 32.1 g/dL (31.6-35.5); Mean Corpuscular Hemoglobin 24.8 pg (28.0-33.3); Mean Corpuscular Volume 77.3 fL (83.0-100.0); Mean Platelet Volume 8.6 fL (9.4-12.4); Monocytes # 0.5 K/mcL (0.0-1.3); Monocytes % 7.8 %; Platelet Count 289 K/mcL (140-400); Red Blood Count 4.19 M/mcL (3.82-4.97)
[2017-03-15 16:55] LABS: INR 1.2; Prothrombin Time 13.1 Seconds (9.4-12.1)
[2017-03-15 16:58] LABS: Activated Partial Thrombo Time 26.9 Seconds (26.0-36.0)
[2017-03-15 17:00] LABS: Bilirubin,Urine Negative (Negative); Blood,Urine Trace (Negative); Clarity,Urine Clear (Clear); Color,Urine Yellow (Yellow); Glucose,Urine (UA) Normal (Normal); Ketones,Urine Negative (Negative); Leukocyte Esterase,Urine Negative (Negative); Nitrite,Urine Negative (Negative); Protein,Urine Negative (Neg-Trace); Specific Gravity,Urine 1.018 (1.010-1.025); Urobilinogen,Urine Normal (Normal)
[2017-03-15 17:02] LABS: BUN/Creatinine Ratio 18 (6-26); Blood Urea Nitrogen 11 mg/dL (7-20); Calcium 8.5 mg/dL (8.6-10.8); Carbon Dioxide 25 mEq/L (19-29); Chloride 106 mEq/L (98-109); Glucose 126 mg/dL (70-99); Osmolality,Calculated 287 (280-300); Potassium 3.4 mEq/L (3.5-4.5); Sodium 138 mEq/L (136-145); eGFR For African Americans > 60 (> 60); eGFR For Non-African Americans > 60 (> 60)
[2017-03-15 17:02] LABS: Bacteria,Urine None Seen per hpf (None-Few); Hyaline Casts,Urine None Seen per lpf (None-Few); Squamous Epithelial Cell,Urine Many per lpf (None-Few); WBC,Urine 0-3 per hpf (0-3)
--- NOTE | 2017-03-15 17:44 | Emergency Department Note ---
Disposition Clinical Impression: Fracture of femur Qualifiers: Encounter type: initial encounter Femur location: neck Fracture type: closed Laterality: left Qualified Code(s): S72.002A - Fracture of unspecified part of neck of left femur, initial encounter for closed fracture Fall Qualifiers: Encounter type: initial encounter Qualified Code(s): W19.XXXA - Unspecified fall, initial encounter Disposition: Admitted As Inpatient Condition: Good Time of Disposition: 17:58 General Adult HPI - General Chief complaint: ED Extremity Injury, Lower Stated complaint: L hip break Time Seen by Provider: 03/15/17 16:13 Source: EMS Mode of arrival: EMS Limitations: physical limitation Nursing Notes Reviewed: Yes Vital Signs Reviewed: Yes - History of Present Illness HPI Narrative: 76-year-old female presenting to the emergency Department chief complaint of left femur fracture. Patient stayed 2 days ago she fell and was having severe left hip pain. Home health aid completed an x-ray that evening but did not tell the power of estate attorney or the patient the results. The next day she was told she had a left femur fracture and to follow up with orthopedics. They saw Dr. Phillip this afternoon who wanted the patient to be transferred to the emergency department to get worked up and admitted for fixture of the left femur fracture. Patient has no other complaints at this time. She normally takes oxycodone and morphine by mouth for pain control at home. She states she is currently in hospice. Patient denies being on any anticoagulation at this time. Pain Scale: 9 - Related Data Home Medications Medication Instructions Recorded Confirmed Brimonidine Tartrate [Alphagan P] 1 drop OP BID 01/08/17 03/15/17 Diphenoxylate/Atropine [Lomotil 1 tab PO QID PRN 01/08/17 03/15/17 2.5 mg/0.025 mg] FLUoxetine HCl [Prozac] 20 mg PO DAILY 01/08/17 03/15/17 Loratadine [Allergy Relief] 10 mg PO DAILY 01/08/17 03/15/17 Morphine Sulfate SR (12 HR) [MS 60 mg PO Q12HR 01/08/17 03/15/17 Contin] Ondansetron [Zofran] 8 mg PO Q4H PRN 01/08/17 03/15/17 Calcium Carbonate [Calcium] 1,200 mg PO DAILY 03/15/17 03/15/17 Ergocalciferol (VITAMIN D2) 50,000 unit PO QWEEK 03/15/17 03/15/17 [Vitamin D2] Loperamide HCl [Imodium A-D] 2 mg PO TID PRN 03/15/17 03/15/17 Previous Rx's Medication Instructions Recorded Omeprazole [PriLOSEC] 40 mg PO BID #60 cap 01/11/17 Oxycodone HCl 10 mg PO Q4H PRN #25 tablet 01/11/17 Allergies Allergy/AdvReac Type Severity Reaction Status Date / Time No Known Allergies Allergy Verified 11/08/14 17:42 Limitations: ROS unobtainable due to patients medical condition Past Medical History - Past Medical History Attestation: Yes The following information was validated with the patient. Medical history: Reports: arthritis, dementia, diabetes, GERD, hyperlipidemia, osteoporosis, pulmonary embolus Surgical history: Reports: appendectomy, cholecystectomy, colostomy, hysterectomy Psychiatric history: Reports: anxiety, depression - Social History Smoking Status: Former smoker Smokeless Tobacco Status: No Alcohol use: Reports: none Drug use: Reports: none Physical Exam - General Limitations: physical limitation General appearance: alert, in no apparent distress - Head Head exam: atraumatic, normocephalic, normal inspection - Eye Eye exam: Present: normal appearance. Absent: scleral icterus, conjunctival injection - Neck Neck exam: Present: normal inspection. Absent: tenderness - Chest Chest inspection: Present: normal inspection, symmetric chest wall rise. Absent : tenderness, rash - Respiratory Respiratory exam: Present: normal lung sounds bilaterally. Absent: respiratory distress, wheezes - Cardiovascular Cardiovascular exam: Present: regular rate, normal rhythm - Abdominal Exam Abdominal exam: Present: soft, Non-Tender. Absent: distention, guarding, rebound - Extremities Exam Extremities exam: Present: other (Left lower extremity is short and externally rotated. Tenderness across the greater trochanter. Sensation intact bilateral lower extremities. Distal pulses 2+ in the bilateral lower extremities. Decreased muscle strength of the left side due to pain but movement is attainable.) - Neurological Exam Neurological exam: Present: alert - Psychiatric Psychiatric exam: Present: normal affect, normal mood - Skin Skin exam: Present: warm, intact Course Course Narrative: 76-year-old female transferred from orthopedic clinic for left femoral fracture. Patient has no other complaints at this time. She states she is in minimal pain. I spoke with the orthopedic surgeon who would just like us to complete preoperative lab work and imaging and admit the patient to the hospitalist for preoperative care. Patient is stable at this time with stable vital signs. Daughter at bedside who is the power of estate attorney agrees with this plan. Disposition will be admission upon results of laboratory and radiographs. - Reevaluation(s) Reevaluation #1: Patient states she has no pain now at this time. Patient was given morphine. All lab work has come back and radiographs which showed mild anemia but otherwise stable. We will admit the patient at this time. I spoke with the hospitalist on-call Dr. Christie who agrees to accept the patient. Vital Signs Temperature 99.2 F 03/15/17 16:15 Pulse Rate 94 03/15/17 16:15 Respiratory Rate 16 03/15/17 16:15 Blood Pressure 162/93 03/15/17 16:15 O2 Sat by Pulse Oximetry 100 03/15/17 16:15 Temperature 99.2 F 03/15/17 16:15 Pulse Rate 84 03/15/17 17:50 Respiratory Rate 16 03/15/17 17:50 Blood Pressure 122/71 03/15/17 17:50 O2 Sat by Pulse Oximetry 98 03/15/17 17:50 Oxygen Delivery Oxygen Delivery Room Air Medical Decision Making - Lab Data Lab results reviewed: Yes I reviewed the patient's lab results. Result diagrams: 03/15/17 16:42 03/15/17 16:42 Lab Results 03/15/17 03/15/17 03/15/17 Range/Units 16:42 16:42 16:42 WBC 6.6 (4.3-11.1) K/mcL RBC 4.19 (3.82-4.97) M/mcL Hgb 10.4 L (11.5-15.4) g/dL Hct 32.4 L (35.3-44.9) % MCV 77.3 L (83.0-100.0) fL MCH 24.8 L (28.0-33.3) pg MCHC 32.1 (31.6-35.5) g/dL RDW 19.0 H (11.5-14.5) % Plt Count 289 (140-400) K/mcL MPV 8.6 L (9.4-12.4) fL Immature Gran % 0.5 (0-4) % Seg Neutrophils % 76.0 % Lymphocytes % 14.3 % Monocytes % 7.8 % Eosinophils % 1.1 % Basophils % 0.3 % Neutrophils # 5.0 (1.6-8.9) K/mcL Lymphocytes # 0.9 (0.6-4.6) K/mcL Monocytes # 0.5 (0.0-1.3) K/mcL Eosinophils # 0.1 (0.0-0.6) K/mcL Basophils # 0.0 (0.0-0.2) K/mcL PT 13.1 H (9.4-12.1) Seconds INR 1.2 APTT 26.9 (26.0-36.0) Seconds Sodium 138 (136-145) mEq/L Potassium 3.4 L (3.5-4.5) mEq/L Chloride 106 (98-109) mEq/L Carbon Dioxide 25 (19-29) mEq/L BUN 11 (7-20) mg/dL Creatinine 0.62 (0.57-1.11) mg/dL Est GFR ( Amer) > 60 (> 60) Est GFR (Non-Af Amer) > 60 (> 60) BUN/Creatinine Ratio 18 (6-26) Glucose 126 H (70-99) mg/dL Calculated Osmolality 287 (280-300) Calcium 8.5 L (8.6-10.8) mg/dL Urine Color (Yellow) Urine Clarity (Clear) Urine pH (5.0-8.0) pH Units Ur Specific Manley (1.010-1.025) Urine Protein (Neg-Trace) mg/dL Urine Glucose (UA) (Normal) mg/dL Urine Ketones (Negative) mg/dL Urine Blood (Negative) Urine Nitrite (Negative) Urine Bilirubin (Negative) Urine Urobilinogen (Normal) mg/dL Ur Leukocyte Esterase (Negative) Urine Microscopic RBC (0-3) per hpf Urine Microscopic WBC (0-3) per hpf Ur Squamous Epith Cells (None-Few) per lpf Urine Bacteria (None-Few) per hpf Hyaline Casts (None-Few) per lpf Ur Culture Indicated? (NO) 03/15/17 Range/Units 16:53 WBC (4.3-11.1) K/mcL RBC (3.82-4.97) M/mcL Hgb (11.5-15.4) g/dL Hct (35.3-44.9) % MCV (83.0-100.0) fL MCH (28.0-33.3) pg MCHC (31.6-35.5) g/dL RDW (11.5-14.5) % Plt Count (140-400) K/mcL MPV (9.4-12.4) fL Immature Gran % (0-4) % Seg Neutrophils % % Lymphocytes % % Monocytes % % Eosinophils % % Basophils % % Neutrophils # (1.6-8.9) K/mcL Lymphocytes # (0.6-4.6) K/mcL Monocytes # (0.0-1.3) K/mcL Eosinophils # (0.0-0.6) K/mcL Basophils # (0.0-0.2) K/mcL PT (9.4-12.1) Seconds INR APTT (26.0-36.0) Seconds Sodium (136-145) mEq/L Potassium (3.5-4.5) mEq/L Chloride (98-109) mEq/L Carbon Dioxide (19-29) mEq/L BUN (7-20) mg/dL Creatinine (0.57-1.11) mg/dL Est GFR ( Amer) (> 60) Est GFR (Non-Af Amer) (> 60) BUN/Creatinine Ratio (6-26) Glucose (70-99) mg/dL Calculated Osmolality (280-300) Calcium (8.6-10.8) mg/dL Urine Color Yellow (Yellow) Urine Clarity Clear (Clear) Urine pH 6.0 (5.0-8.0) pH Units Ur Specific Manley 1.018 (1.010-1.025) Urine Protein Negative (Neg-Trace) mg/dL Urine Glucose (UA) Normal (Normal) mg/dL Urine Ketones Negative (Negative) mg/dL Urine Blood Trace H (Negative) Urine Nitrite Negative (Negative) Urine Bilirubin Negative (Negative) Urine Urobilinogen Normal (Normal) mg/dL Ur Leukocyte Esterase Negative (Negative) Urine Microscopic RBC 3-5 H (0-3) per hpf Urine Microscopic WBC 0-3 (0-3) per hpf Ur Squamous Epith Cells Many H (None-Few) per lpf Urine Bacteria None Seen (None-Few) per hpf Hyaline Casts None Seen (None-Few) per lpf Ur Culture Indicated? NO (NO) - Radiology Data Radiology results reviewed: Yes I reviewed the patient's radiology results. - EKG Data EKG #1 EKG attestation: Yes I reviewed and interpreted this EKG. EKG results narrative: Sinus rhythm. Left axis deviation. 83 bpm. GA interval 160, QRS 89, QTc 412. No signs of acute ST segment elevation or ischemia. When compared to previous EKG completed on 01/10/2017 no significant changes noted Attestation Statement - Attestation Attestation: I examined this patient and my medical decision-making was reviewed with the Resident Physician, Dr. Carr. I agree with the documented findings, disposition and treatment plan as described except to the extent set forth below. Patient is a 76-year-old white female who was sent to us from Dr. Jacinto Aguilar's office after the patient was evaluated for hip pain following fall. She was found to have a left femoral neck fracture and he transferred her here for admission. He plans to operate on her tomorrow. Patient denies any other pain or injuries sustained in the fall. I agree with patient's physical exam findings as documented. Patient hemodynamically stable. Patient underwent EKG monitoring, EKG was negative for any acute ischemic changes. Chest x-ray is unremarkable. Patient's labs were drawn and sent including coags which are within normal limits. Patient had a Barton catheter placed and urinalysis is unremarkable. Patient will be admitted to the hospitalist service and Dr. Price has been consulate for orthopedic management.
[2017-03-15] MEDS ORDERED: D5% in Water 1,000 ML IVC PRN (19:19)
[2017-03-15] MEDS ORDERED: Dextrose Gel 15 GM PO PRN ×2 (19:19)
[2017-03-15] MEDS ORDERED: *HR* Dextrose 50 % in Water (Syg) 50 ML SYRINGE IVP PRN (19:19)
--- NOTE | 2017-03-15 19:34 | Anesthesia Evaluation PreOp ---
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: Other (Alzheimers dementia) Other Medical History: Diabetes Type II, GERD Anesthesia History: No Prior Anesthetic Complications, Past Anesthesia ( hysterectomy) Alcohol Use: none Drug use: none Medications and Allergies Brimonidine Tartrate [Alphagan P] 1 drop OP BID 01/08/17 [History] Diphenoxylate/Atropine [Lomotil 2.5 mg/0.025 mg] 1 tab PO QID PRN 01/08/17 [ History] FLUoxetine HCl [Prozac] 20 mg PO DAILY 01/08/17 [History] Loratadine [Allergy Relief] 10 mg PO DAILY 01/08/17 [History] Morphine Sulfate SR (12 HR) [MS Contin] 60 mg PO Q12HR 01/08/17 [History] Ondansetron [Zofran] 8 mg PO Q4H PRN 01/08/17 [History] Omeprazole [PriLOSEC] 40 mg PO BID #60 cap 01/11/17 [Rx] Oxycodone HCl 10 mg PO Q4H PRN #25 tablet 01/11/17 [Rx] Calcium Carbonate [Calcium] 1,200 mg PO DAILY 03/15/17 [History] Ergocalciferol (VITAMIN D2) [Vitamin D2] 50,000 unit PO QWEEK 03/15/17 [History] Loperamide HCl [Imodium A-D] 2 mg PO TID PRN 03/15/17 [History] 3 Allergy/AdvReac Type Severity Reaction Status Date / Time No Known Allergies Allergy Verified 11/08/14 17:42 - Meds/Allergy Pre-op Review Medications Reviewed: Yes Allergies Reviewed: Yes Beta Blockers on Current Med List: No Anesthesia Results - Labs 03/16/17 15:56 03/16/17 04:34 Laboratory Tests 03/15/17 16:42 PT 13.1 H INR 1.2 APTT 26.9 - Imaging EKG: report reviewed (01/10/2017 SINUS RHYTHM LEFT ANTERIOR FASCICULAR BLOCK POSSIBLE ANTERIOR MYOCARDIAL INFARCTION, PROBABLY OLD) Anesthesia Exam Vital Signs/O2 Sat, Most Current Temp Pulse Resp BP Pulse Ox 99.2 F 84 16 122/71 98 03/15/17 16:15 03/15/17 17:50 03/15/17 17:50 03/15/17 17:50 03/15/17 17:50 Height: 5'7"/1.7 m Weight: 120 lbs/54.4 kg Pain Scale Used: Numeric (1 - 10) - HEENT Pupil (Motor): EOMI Mallampati: II Teeth: Edentulous Oral Opening: Greater than 3 - IMMIGRATION INSPECTOR LOC: Oriented IMMIGRATION INSPECTOR Motor: Normal RUE, Normal LUE, Normal RLE, Normal LLE, Normal Face IMMIGRATION INSPECTOR Sensory: Normal: RUE, LUE, RLE, LLE, Face - Cardiac Rhythm: Regular Murmur: None - Pulmonary Breath Sounds: bilateral Clear Respiratory Effort: Symmetrical Anesthesia Assess/Plan ASA Score: 3 Anesthetic Plan: General Monitoring Plan: Standard Monitors Recovery Plan: PACU
[2017-03-15] MEDS ORDERED: Naloxone 0.4 MG/ML INJ IVP PRN (21:28)
[2017-03-15] MEDS ORDERED: Ondansetron 4 MG/2 ML VIAL IVP PRN (21:28)
[2017-03-15] MEDS ORDERED: 0.9 % Sodium Chloride 1,000 ML IVC SCH (21:30)
--- NOTE | 2017-03-15 21:31 | Internal Med History&Physical ---
Date of Encounter: 03/15/17 Time of Encounter: 21:15 Assessment and Plan (1) Fracture of femur Current visit: Yes Status: Acute Acute left femur fracture, secondary to mechanical fall NPO, IV morphine, IV fluids Orthopedics consult - patient will likely undergo surgery in the morning PT/OT consult, director social consult, labs in a.m., monitor closely Qualifiers: Encounter type: initial encounter Femur location: neck Fracture type: closed Laterality: left Qualified Code(s): S72.002A - Fracture of unspecified part of neck of left femur, initial encounter for closed fracture (2) Fall Current visit: Yes Status: Acute Status post probable mechanical fall Qualifiers: Encounter type: initial encounter Qualified Code(s): W19.XXXA - Unspecified fall, initial encounter (3) DVT prophylaxis Current visit: Yes Status: Acute Heparin subcutaneous Internal Medicine - H&P: HPI Chief complaint: Left hip pain Admitted From: Emergency Dept Plans for Post Hospital Care: Home History of present illness: Ms. Ibarra is a 76 year old female with past medical history arthritis, dementia , diabetes, GERD, hyperlipidemia, history of PE, osteoporosis and anxiety and depression. Patient presents to the ED with left hip pain. Examined in the room. Patient is awake and alert. Not in any distress. Able to provide history. No family members at bedside. Patient states about 2 days ago she fell in her kitchen. This seems to be a mechanical fall. She is not entirely sure as to how she sustained a fall. Patient states she was awake the entire time. She states her son-in-law was present at the time of fall. Patient did have a outpatient x-ray done which revealed a left femur fracture. Patient did follow up with orthopedics earlier today, and was advised inpatient admission. Patient describes the left hip pain as sharp and nonradiating. Rates it 7/10. Worse with movement. No alleviating factors. No other associated symptoms. No other acute complaints. Initial workup in the ED is negative. Patient will be kept nothing by mouth after midnight. She will likely undergo surgery in the morning. Patient has been excellent about her condition and plan of care in detail. She understood and agreed. No unanswered questions. CODE STATUS full code. Past Med Surg Social Fam HX - Past Medical History Medical history: arthritis, dementia, diabetes, GERD, hyperlipidemia, osteoporosis, pulmonary embolus Psychiatric history: anxiety, depression - Past Surgical History Surgical History: appendectomy, cholecystectomy, colostomy, hysterectomy - Social History Smoking Status: Former smoker Smokeless Tobacco Status: No Alcohol use: none Drug use: none - Family History Mother Living Status: Hx Family Cardiac Disorders: Yes (arterial disease) Father Living Status: Hx Family Cancer: Yes (Leukemia) Internal Medicine - H&P: Meds Brimonidine Tartrate [Alphagan P] 1 drop OP BID 01/08/17 [History] Diphenoxylate/Atropine [Lomotil 2.5 mg/0.025 mg] 1 tab PO QID PRN 01/08/17 [ History] FLUoxetine HCl [Prozac] 20 mg PO DAILY 01/08/17 [History] Loratadine [Allergy Relief] 10 mg PO DAILY 01/08/17 [History] Morphine Sulfate SR (12 HR) [MS Contin] 60 mg PO Q12HR 01/08/17 [History] Ondansetron [Zofran] 8 mg PO Q4H PRN 01/08/17 [History] Omeprazole [PriLOSEC] 40 mg PO BID #60 cap 01/11/17 [Rx] Oxycodone HCl 10 mg PO Q4H PRN #25 tablet 01/11/17 [Rx] Calcium Carbonate [Calcium] 1,200 mg PO DAILY 03/15/17 [History] Ergocalciferol (VITAMIN D2) [Vitamin D2] 50,000 unit PO QWEEK 03/15/17 [History] Loperamide HCl [Imodium A-D] 2 mg PO TID PRN 03/15/17 [History] 3 Allergy/AdvReac Type Severity Reaction Status Date / Time No Known Allergies Allergy Verified 11/08/14 17:42 All Systems PM: A 10-system review of systems was performed and is negative for pertinent findings except as documented above in the HPI. - Constitutional Constitutional: fatigue, no fever(s), no weakness - EENT Eyes: no blurry vision - Cardiovascular Cardiovascular ROS IM: no chest pain, no diaphoresis, no dyspnea, no dyspnea on exertion, no lightheadedness, no orthopnea, no syncope - Respiratory Respiratory: no cough, no hemoptysis, no dyspnea on exertion, no wheezing, no chest congestion - Gastrointestinal Gastrointestinal: no abdominal pain, no bloating, no cramping, no diarrhea, no hematemesis, no hematochezia, no nausea, no vomiting - Genitourinary Genitourinary: no dysuria - Musculoskeletal Additional comments: Left hip pain - Neurological Neurological ROS: no abnormal gait, no confusion, no convulsions, no dizziness, no loss of vision, no numbness, no tingling - Constitutional Vitals: Temp Pulse Resp BP Pulse Ox 99.0 F 88 18 125/72 99 03/15/17 19:37 03/15/17 19:37 03/15/17 19:37 03/15/17 19:37 03/15/17 19:37 General appearance: Present: cachectic, cooperative, A&O X 3, pleasant, no acute distress, answers questions appropriately - Head Head exam: Present: atraumatic - Eye Eye exam: Present: EOMI - ENT ENT exam: Present: mucous membranes dry - Respiratory Respiratory exam: Present: CTAB. Absent: accessory muscle use, rales, respiratory distress, rhonchi, wheezes, tachypnea - Cardiovascular Cardiovascular exam: Present: RRR, +S1, +S2 - GI/Abdominal GI/Abdominal exam: Present: soft. Absent: distended, firm, guarding, tenderness - Extremities Exam Extremities exam: Present: radial pulses palpable and symmetrical. Absent: calf tenderness, cyanotic, pedal edema Additional comments: Left hip tenderness, limited range of motion of the left hip. - Neurological Exam Neurological exam: Present: alert, oriented X3, no focal deficits. Absent: facial droop, speech deficit Internal Med - H&P Results - Labs CBC & Chem 7: 03/15/17 16:42 03/15/17 16:42
[2017-03-15] MEDS: *HR* Heparin 5,000 UNIT/ML VIAL SQ SCH (22:50)
[2017-03-15] MEDS: *HR* Morphine 2 MG/ML SYRINGE IVP PRN (22:50)
[2017-03-16] MEDS: Insulin LISPRO 300 UNITS/3 ML VIAL SQ SCH ×3 (00:45→11:07)
[2017-03-16] MEDS: *HR* Morphine 2 MG/ML SYRINGE IVP PRN ×5 (02:41→22:37)
[2017-03-16 05:53] LABS: Basophils % 0.4 %; Eosinophils # 0.2 K/mcL (0.0-0.6); Eosinophils % 2.8 %; Hematocrit 30.6 % (35.3-44.9); Hemoglobin 9.6 g/dL (11.5-15.4); Immature Granulocytes % 0.3 % (0-4); Lymphocytes # 1.5 K/mcL (0.6-4.6); Mean Corpuscular HGB Conc 31.4 g/dL (31.6-35.5); Mean Corpuscular Hemoglobin 24.7 pg (28.0-33.3); Mean Corpuscular Volume 78.9 fL (83.0-100.0); Mean Platelet Volume 9.5 fL (9.4-12.4); Monocytes # 0.6 K/mcL (0.0-1.3); Monocytes % 9.4 %; Neutrophils # 4.4 K/mcL (1.6-8.9); Platelet Count 289 K/mcL (140-400); Red Blood Count 3.88 M/mcL (3.82-4.97); Red Cell Distribution Width 19.2 % (11.5-14.5); Segmented Neutrophils % 65.1 %
[2017-03-16] MEDS: Acetaminophen 325 MG TABLET PO PRN ×3 (06:07→23:08)
[2017-03-16 06:09] LABS: BUN/Creatinine Ratio 22 (6-26); Blood Urea Nitrogen 13 mg/dL (7-20); Calcium 8.7 mg/dL (8.6-10.8); Carbon Dioxide 22 mEq/L (19-29); Chloride 103 mEq/L (98-109); Glucose 69 mg/dL (70-99); Magnesium 1.6 mg/dL (1.6-2.6); Osmolality,Calculated 280 (280-300); Potassium 3.5 mEq/L (3.5-4.5); Sodium 136 mEq/L (136-145); eGFR For African Americans > 60 (> 60); eGFR For Non-African Americans > 60 (> 60)
[2017-03-16] MEDS: *HR* Heparin 5,000 UNIT/ML VIAL SQ SCH ×2 (06:10→18:02)
--- NOTE | 2017-03-16 07:23 | Orthopedic Consult Note ---
Date of Encounter: 03/16/17 Time of Encounter: 07:21 Assessment and Plan (1) Fracture of femur Current Visit: Yes Status: Acute Left displaced femoral neck fracture. I did discuss the treatment options and my recommendation was for left hip hemiarthroplasty for pain control and to help facilitate nursing care. The risks discussed included but were not limited to stiffness, bleeding, infection, blood clots, damage to neurovascular structures, tendons, ligaments, and bone. Also discussed was the risk of continued symptoms and possible need for further procedures. I did discuss the anesthesia risks including stroke, heart attack, and . I did discuss the reasonable, foreseeable postoperative course with the patient and nightman. They did wish to proceed. We will obtain consent and proceed later today once medically cleared. Qualifiers: Encounter type: initial encounter Femur location: neck Fracture type: closed Laterality: left Qualified Code(s): S72.002A - Fracture of unspecified part of neck of left femur, initial encounter for closed fracture History of Present Illness HPI: Ms. Ibarra is a 76 year old female who was admitted yesterday to the hospitalist due to a left displaced femoral neck fracture. Patient complains of isolated pain to the left hip and groin. Of note she had been doing well for a nonoperative periprosthetic fracture on the right. No numbness, tingling, or any other associated signs or symptoms. The patient is significantly worse on the left with any movement. No other modifying factors. Past Med Surg Social Fam HX - Past Medical History Medical history: arthritis, dementia, diabetes, GERD, hyperlipidemia, osteoporosis, pulmonary embolus Psychiatric history: anxiety, depression - Past Surgical History Surgical History: appendectomy, cholecystectomy, colostomy, hysterectomy - Social History Smoking Status: Former smoker Smokeless Tobacco Status: No Alcohol use: none Drug use: none - Family History Mother Living Status: Hx Family Cardiac Disorders: Yes (arterial disease) Father Living Status: Hx Family Cancer: Yes (Leukemia) Medications and Allergies Brimonidine Tartrate [Alphagan P] 1 drop OP BID 01/08/17 [History] Diphenoxylate/Atropine [Lomotil 2.5 mg/0.025 mg] 1 tab PO QID PRN 01/08/17 [ History] FLUoxetine HCl [Prozac] 20 mg PO DAILY 01/08/17 [History] Loratadine [Allergy Relief] 10 mg PO DAILY 01/08/17 [History] Morphine Sulfate SR (12 HR) [MS Contin] 60 mg PO Q12HR 01/08/17 [History] Ondansetron [Zofran] 8 mg PO Q4H PRN 01/08/17 [History] Omeprazole [PriLOSEC] 40 mg PO BID #60 cap 01/11/17 [Rx] Oxycodone HCl 10 mg PO Q4H PRN #25 tablet 01/11/17 [Rx] Calcium Carbonate [Calcium] 1,200 mg PO DAILY 03/15/17 [History] Ergocalciferol (VITAMIN D2) [Vitamin D2] 50,000 unit PO QWEEK 03/15/17 [History] Loperamide HCl [Imodium A-D] 2 mg PO TID PRN 03/15/17 [History] 3 Allergy/AdvReac Type Severity Reaction Status Date / Time No Known Allergies Allergy Verified 11/08/14 17:42 All Systems Reviewed: A 10-system review of systems was performed and is negative for pertinent findings except as documented above in the HPI. Physical Exam - Constitutional Vitals: Temp Pulse Resp BP Pulse Ox 99.1 F 85 16 127/72 93 03/16/17 06:21 03/16/17 06:21 03/16/17 06:21 03/16/17 06:21 03/16/17 06:21 Constitutional -Vitals reviewed -The patient is well developed and well nourished. -Mood is pleasant. -The patient is well groomed. Psychiatric -The patient is fully alert and oriented x 3. Respiratory: -Respiratory effort normal Abdomen: -Soft abdomen -Non tender -Non distended: Left upper extremity: -No deformities. The overlying skin is intact. No obvious signs of acute trauma. -No tenderness to palpation throughout. -No significant pain with passive motion of the shoulder, elbow, wrist, and fingers within the limits of the bed. -Able to make an "OK" sign, cross the index and long fingers, and extend the thumb. -Sensation grossly intact to light touch throughout the median, radial, and ulnar distributions. -Radial pulse is present; Fingers have good capillary refill. Right upper extremity: -No deformities. The overlying skin is intact. No obvious signs of acute trauma. -No tenderness to palpation throughout. -No significant pain with passive motion of the shoulder, elbow, wrist, and fingers within the limits of the bed. -Able to make an "OK" sign, cross the index and long fingers, and extend the thumb. -Sensation grossly intact to light touch throughout the median, radial, and ulnar distributions. -Radial pulse is present; Fingers have good capillary refill. Left lower extremity: -The extremity is shortened and externally rotated. The overlying skin is intact. -There is tenderness in the groin region as well as the proximal lateral thigh. -I did not range the hip due to the known fracture. -No tenderness along the distal thigh, leg, ankle, foot, or toes. -Able to dorsiflex and plantarflex the ankle and toes. -Sensation is grossly intact to light touch throughout the sural, saphenous, superficial peroneal, and deep peroneal distributions. -Toes have good capillary refill. Right lower extremity: -No deformities. The overlying skin is intact. No obvious signs of acute trauma. -No tenderness to palpation throughout. -No pain with passive motion of the hip, knee, ankle, and toes within the limits of the bed. -No pain with axial loading of the thigh. -Able to dorsiflex and plantarflex the ankle and toes. -Sensation is grossly intact to light touch throughout the sural, saphenous, superficial peroneal, and deep peroneal distributions. -Toes have good capillary refill. Diagnostic Imaging: I did personally review and interpret x-rays of the left hip which show a displaced femoral neck fracture Results - Labs Result Diagrams: 03/16/17 04:34 03/16/17 04:34 Labs: Abnormal lab results Hgb 9.6 g/dL (11.5-15.4) L 03/16/17 04:34 Hct 30.6 % (35.3-44.9) L 03/16/17 04:34 MCV 78.9 fL (83.0-100.0) L 03/16/17 04:34 MCH 24.7 pg (28.0-33.3) L 03/16/17 04:34 MCHC 31.4 g/dL (31.6-35.5) L 03/16/17 04:34 RDW 19.2 % (11.5-14.5) H 03/16/17 04:34 PT 13.1 Seconds (9.4-12.1) H 03/15/17 16:42 Glucose 69 mg/dL (70-99) L 03/16/17 04:34 POC Glucose 176 (58-89) H 03/16/17 00:44 Urine Blood Trace (Negative) H 03/15/17 16:53 Urine Microscopic RBC 3-5 per hpf (0-3) H 03/15/17 16:53 Ur Squamous Epith Cells Many per lpf (None-Few) H 03/15/17 16:53 H & H 03/16/17 Range/Units 04:34 Hgb 9.6 L (11.5-15.4) g/dL Hct 30.6 L (35.3-44.9) % All other labs normal. Consult Discharge Plan - Plan Referrals: NONE,PCP [Primary Care Provider] -
[2017-03-16] MEDS ORDERED: *HR* Morphine 2 MG/ML SYRINGE IVP PRN ×2 (12:09→12:11)
--- NOTE | 2017-03-16 13:52 | Anesthesia Progress Note ---
Date of Encounter: 03/16/17 Time of Encounter: 13:49 Anesthesia Note - Note Note: 03/16/17 13:49 Patient has diagnosis of Alzheimers dementia. I contact Margareth Costello, her daughter with whom the patient lives with, to discuss the anesthesia. Margareth informs me that her mom has advanced dementia and is able to recall the past but has poor short term memory and that the daughter is POA. I discussed the risks of GA with Margareth and she agreed to proceed. This was verbally witnessed by Katalina Mota RN.
--- NOTE | 2017-03-16 14:07 | Internal Med Progress Note ---
Date of Encounter: 03/16/17 Time of Encounter: 09:00 - Assessment and plan (1) Fracture of right hip Current Visit: No Status: Acute Assessment and plan: s/p hip arthroplasty. c/w pain control. ortho following. PT/OT. ??placement Qualifiers: Encounter type: initial encounter Fracture type: closed Qualified Code(s) : S72.001A - Fracture of unspecified part of neck of right femur, initial encounter for closed fracture (2) Diabetes Current Visit: No Status: Chronic Assessment and plan: c/w SSI. c/w accuchecks. watch form hypoglycemia. Glucose 69 in the morning. 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 Will check iron studies. labs in am as I expect there will be some blood loss anemia as well post op. Qualifiers: Anemia type: unspecified type Qualified Code(s): D64.9 - Anemia, unspecified - Subjective Interval history: No acute events. Pain is well controlled. She is s/p left hip arthroplasty. No complications. - Constitutional Vitals: Temp Pulse Resp BP Pulse Ox 99.0 F 78 20 126/67 98 03/16/17 10:51 03/16/17 10:51 03/16/17 10:51 03/16/17 10:51 03/16/17 10:51 General appearance: Present: cachectic, cooperative, A&O X 3, pleasant, no acute distress, answers questions appropriately Exam: GEN: NAD CVS: RRR. S1, S2, No m/r/g RESP: CTAB ABD: Soft, NT, ND,+BS EXT: No edema. Area of left hip operative site dressed. No drainage. NEURO: Nonfocal Internal Medicine: Result - Labs CBC & Chem 7: 03/16/17 15:56 03/16/17 04:34 Labs: Short CBC 03/16/17 Range/Units 04:34 WBC 6.8 (4.3-11.1) K/mcL Hgb 9.6 L (11.5-15.4) g/dL Hct 30.6 L (35.3-44.9) % Plt Count 289 (140-400) K/mcL Neutrophils # 4.4 (1.6-8.9) K/mcL BMP 03/16/17 04:34 Sodium 136 Potassium 3.5 Chloride 103 Carbon Dioxide 22 BUN 13 Creatinine 0.58 Glucose 69 L Calcium 8.7 - ABG Interpretation ABG results: PT/INR, D-dimer PT 13.1 Seconds (9.4-12.1) H 03/15/17 16:42 Consult Discharge Plan - Plan Referrals: NONE,PCP [Primary Care Provider] -
[2017-03-16] MEDS ORDERED: Ethanol\\Acetic Acid\\Na Ace\\Ben 1,000 ML IRRIG.SOLN IR ONE (14:21)
[2017-03-16] MEDS ORDERED: Ondansetron 4 MG/2 ML VIAL ONE (14:22)
[2017-03-16] MEDS ORDERED: *HR* Succinylcholine 200 MG/10 ML VIAL IVP ONE (14:22)
[2017-03-16] MEDS ORDERED: *HR* Propofol 200 MG/20 ML VIAL IVP ONE (14:22)
[2017-03-16] MEDS ORDERED: Lidocaine -MPF 2% 2 ML VIAL ONE (14:22)
[2017-03-16] MEDS ORDERED: *HR* Rocuronium Bromide 50 MG/5 ML VIAL ONE (14:22)
[2017-03-16] MEDS ORDERED: Dexamethasone 4 MG/ML VIAL ONE (14:22)
[2017-03-16] MEDS ORDERED: *HR* Midazolam HCl 2 MG/2 ML VIAL ONE (14:22)
[2017-03-16] MEDS ORDERED: *HR* FentaNYL (PF) 100 MCG/2 ML VIAL ONE ×3 (14:22→15:07)
[2017-03-16] MEDS ORDERED: *HR* Etomidate 40 MG/20 ML VIAL IVP ONE (14:23)
[2017-03-16 14:34] LABS: % Iron Saturation 9 % (15-50); Iron 24 mcg/dL (50-170); Transferrin 193 mg/dL (180-382)
[2017-03-16] MEDS ORDERED: *HR* HYDROmorphone 2 MG/ML SYRINGE ONE (14:58)
[2017-03-16] MEDS ORDERED: Esmolol 100 MG/10 ML VIAL IVP ONE (15:05)
[2017-03-16] MEDS ORDERED: *HR* HYDROmorphone (PF) 1 MG/ML SYRINGE IVP PRN (15:14)
[2017-03-16] MEDS ORDERED: *HR* Labetalol 20 MG/4 ML SYRINGE IVP PRN (15:14)
[2017-03-16] MEDS ORDERED: Acetaminophen IV 1,000 MG/100 ML INFUS..BTL ONE (15:18)
--- NOTE | 2017-03-16 15:23 | Orthopedic Operative Note ---
Date of procedure: 03/16/17 Pre-op diagnosis: Left hip fracture Post-op diagnosis: same Procedure: Procedure: Left hip hemiarthroplasty Estimated blood loss: 200 cc Hardware: Metal replacement Biomet 13 STEM 49 unipolar +6 taper Procedural Notes: Displaced left femoral neck fracture Operative procedure: The patient was brought to the operating room and placed on the operating room table. After general anesthesia was administered the patient was placed in the lateral decubitus position with the operative leg up. All pressure points were padded appropriately and the head was stabilized in the neutral position. The operative extremity was prepped and draped in the sterile surgical fashion patient received IV antibiotic prior to skin incision. A standard posterior approach is made to the operative hip, the incision was made through the skin and subcutaneous tissue hemostasis was obtained with Bovie cautery. Using careful sharp dissection the fascia was identified and incised exposing the external rotators. The external rotators were released off the greater trochanter and tagged with #2 FiberWire suture. The capsule was T'd open the femoral head was removed. The femoral neck cut was made at the appropriate level. Femoral head was removed and size is a 49 The hip was brought into internal rotation and prepared with the wooden box maker followed by the canal finder followed by broaching process in 20 degrees anteversion. It was broached up to the appropriate size routine. The femoral implant was impacted in place in 20 degrees of anteversion. Trial reduction found the hip to be stable with the appropriate size +649 head. The trials were removed and the real implants were impacted in place. The hip was reduced , the hip had full extension and full flexion of the knee was in full extension.the patient had apparent equal leg length. The hip had excellent stability with forward flexion to 90 degrees adduction of 30 degrees and internal rotation of 60 degrees. The hip had no shuck. The hip was irrigated out with 2 L of pulse irrigation. Fascia was closed with a running #2 FiberWire suture. The deep tissue was irrigated and closed deep with #1 PDS suture superficially with 0 PDS suture and skin was closed with zip tie. The patient was placed in a sterile dressing and abduction pillow. The patient was extubated and transferred to the recovery room in stable condition. Anesthesia: GETA Surgeon: Jorge Soto Condition: stable Disposition: PACU
--- NOTE | 2017-03-16 16:26 | Anesthesia Evaluation Post Op ---
Date of Encounter: 03/16/17 Time of Encounter: 16:16 - Vital Signs Vital Signs: vss - Lungs Lungs: Clear Ascult./Percussion - Airway Airway: Non-obstructed - Cardiovascular Baseline Rhythm - Mental Status Mental Status: Alert & Oriented, Answers Appropriately - Pain Pain Scale used: Veronica (Faces) - Nausea Vomiting Nausea Vomiting: Not Present - Hydration Hydration: Ice chips - Discharge PostOp Status: Transfer Patient to floor
[2017-03-16 16:46] LABS: Hematocrit 29.8 % (35.3-44.9); Hemoglobin 9.6 g/dL (11.5-15.4)
[2017-03-16] MEDS ORDERED: *HR* Dextrose 50 % in Water (Syg) 50 ML SYRINGE IVP PRN (17:03)
[2017-03-16] MEDS ORDERED: MOM Conc 10 ML UD.LIQ PO PRN (17:03)
[2017-03-16] MEDS ORDERED: CeFAZolin Premix DUPLEX 2,000 MG/50 ML BAG IVPB SCH (17:03)
[2017-03-16] MEDS ORDERED: D5% in Water 1,000 ML IVC PRN (17:03)
[2017-03-16] MEDS ORDERED: Sennosides 8.6 MG TABLET PO PRN (17:03)
[2017-03-16] MEDS ORDERED: Dextrose Gel 15 GM PO PRN ×2 (17:03)
[2017-03-16] MEDS ORDERED: Naloxone 0.4 MG/ML INJ IVP PRN (17:03)
[2017-03-16] MEDS ORDERED: Insulin LISPRO 300 UNITS/3 ML VIAL SQ SCH (18:00)
[2017-03-16] MEDS: Ascorbic Acid 500 MG TABLET PO SCH (18:02)
--- NOTE | 2017-03-16 19:18 | Electrocardiograph Report ---
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
[2017-03-16] MEDS: CeFAZolin Premix DUPLEX 2,000 MG/50 ML BAG IVPB SCH (22:36)
[2017-03-16] MEDS: Temazepam 15 MG CAPSULE PO PRN (23:08)
[2017-03-16] MEDS: Ondansetron 4 MG/2 ML VIAL IVP PRN (23:08)
[2017-03-17] MEDS: 0.9 % Sodium Chloride 1,000 ML IVC SCH (02:14)
[2017-03-17] MEDS: *HR* Morphine 2 MG/ML SYRINGE IVP PRN ×7 (02:15→21:22)
[2017-03-17 05:54] LABS: Hematocrit 28.5 % (35.3-44.9)
[2017-03-17] MEDS: *HR* OxyCODONE Immed Rel 5 MG TABLET PO PRN ×2 (06:36→14:35)
[2017-03-17] MEDS: CeFAZolin Premix DUPLEX 2,000 MG/50 ML BAG IVPB SCH (06:36)
[2017-03-17] MEDS: *HR* Heparin 5,000 UNIT/ML VIAL SQ SCH ×2 (06:37→16:51)
--- NOTE | 2017-03-17 08:02 | Orthopedics Progress Note ---
Date of Encounter: 03/17/17 Time of Encounter: 08:02 Subjective Interval history: Patient was seen this morning doing well without complaints. Afebrile vital signs stable. Operative extremity: Neurovascularly intact Dressing clean dry and intact Calves nontender Assessment and plan: Continue with postoperative care Hemoglobin 9 Objective Vital signs: Vital Signs Temp Pulse Resp BP Pulse Ox 03/17/17 06:44 98.4 F 89 16 129/73 99 03/17/17 04:33 98.7 F 86 18 138/77 100 03/17/17 00:18 97.8 F 77 18 147/96 99 03/16/17 19:05 98.5 F 86 22 104/62 97 03/16/17 17:45 97.9 F 95 22 146/80 98 03/16/17 17:00 97.9 F 84 24 146/78 100 03/16/17 16:37 98.7 F 81 22 137/78 100 03/16/17 16:16 99.4 F 89 18 142/73 100 03/16/17 16:06 99.4 F 87 16 144/74 100 03/16/17 15:56 88 16 150/84 100 03/16/17 15:46 91 14 151/91 100 03/16/17 15:36 99.4 F 98 16 160/85 100 03/16/17 10:51 99.0 F 78 20 126/67 98 Intake and Output 03/16/17 03/17/17 03/17/17 23:59 07:59 15:59 Intake Total 250 / 250 0 / 0 Output Total 225 / 225 375 / 375 Balance 25 / 25 -375 / -375 Intake: IV Fluids 50 / 50 Ancef Premix DUPLEX 2,000 mg In 50 / 50 50 ml @ 100 mls/hr IVPB Q8H [facility] Rx#:[id number] Oral 200 / 200 0 / 0 Output: Catheter 225 / 225 375 / 375 Other: Weight 55.6 kg Blood Glucose* 172 165 - Labs CBC & BMP: 03/17/17 05:15 03/16/17 04:34 Labs: Abnormal lab results Hgb 9.0 g/dL (11.5-15.4) L 03/17/17 05:15 Hct 28.5 % (35.3-44.9) L 03/17/17 05:15 MCV 78.9 fL (83.0-100.0) L 03/16/17 04:34 MCH 24.7 pg (28.0-33.3) L 03/16/17 04:34 MCHC 31.4 g/dL (31.6-35.5) L 03/16/17 04:34 RDW 19.2 % (11.5-14.5) H 03/16/17 04:34 PT 13.1 Seconds (9.4-12.1) H 03/15/17 16:42 Glucose 69 mg/dL (70-99) L 03/16/17 04:34 POC Glucose 172 (58-89) H 03/16/17 20:45 Iron 24 mcg/dL (50-170) L 03/16/17 04:34 % Saturation 9 % (15-50) L 03/16/17 04:34 Urine Blood Trace (Negative) H 03/15/17 16:53 Urine Microscopic RBC 3-5 per hpf (0-3) H 03/15/17 16:53 Ur Squamous Epith Cells Many per lpf (None-Few) H 03/15/17 16:53 - VTE Documentation of Mechanical Device: Venous foot pump, device Consult Discharge Plan - Plan Referrals: NONE,PCP [Primary Care Provider] -
[2017-03-17] MEDS: Ascorbic Acid 500 MG TABLET PO SCH ×2 (08:04→16:52)
[2017-03-17] MEDS: Multivit/Ca/Min/Fe/FA 1 TAB TABLET PO SCH (08:04)
[2017-03-17] MEDS: Insulin LISPRO 300 UNITS/3 ML VIAL SQ SCH ×4 (08:14→21:28)
--- NOTE | 2017-03-17 12:50 | Internal Med Progress Note ---
Date of Encounter: 03/17/17 Time of Encounter: 12:50 - Assessment and plan (1) Fracture of right hip Current Visit: No Status: Acute Assessment and plan: s/p hip arthroplasty. Will restart home MS Contin. c/w other pain controlling agents as is for now and see if any adjustment is needed after MS contin is received. ortho following. PT/OT. ??placement. Monitor blood counts. c/w IVF. labs in am Qualifiers: Encounter type: initial encounter Fracture type: closed Qualified Code(s) : S72.001A - Fracture of unspecified part of neck of right femur, initial encounter for closed fracture (2) Diabetes Current Visit: No Status: Chronic Assessment and plan: c/w SSI. c/w accuchecks. watch for hypoglycemia. 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 iron deficient. on oral supplements. Will give IV venofer today. Hgb dropped post op. will check labs in am. No need to transfuse. I expect there will be some blood loss anemia as well post op. Qualifiers: Anemia type: unspecified type Qualified Code(s): D64.9 - Anemia, unspecified - Subjective Interval history: No acute events. Pain is an issue. Requiring IV and oral pain controlling agents. She takes MS Contin 60 mg BID at home. She is s/p left hip arthroplasty 03/16. No complications. - Constitutional Vitals: Temp Pulse Resp BP Pulse Ox 98.7 F 94 16 131/68 98 03/17/17 11:36 03/17/17 11:36 03/17/17 11:36 03/17/17 11:36 03/17/17 11:36 General appearance: Present: cachectic, cooperative, A&O X 3, pleasant, no acute distress, answers questions appropriately Exam: GEN: NAD CVS: RRR. S1, S2, No m/r/g RESP: CTAB ABD: Soft, NT, ND,+BS EXT: No edema. Area of left hip operative site dressed. No drainage. NEURO: Nonfocal Internal Medicine: Result - Labs CBC & Chem 7: 03/17/17 05:15 03/16/17 04:34 Labs: Short CBC 03/16/17 03/17/17 Range/Units 15:56 05:15 Hgb 9.6 L 9.0 L (11.5-15.4) g/dL Hct 29.8 L 28.5 L (35.3-44.9) % BMP 03/16/17 04:34 Sodium 136 Potassium 3.5 Chloride 103 Carbon Dioxide 22 BUN 13 Creatinine 0.58 Glucose 69 L Calcium 8.7 - ABG Interpretation ABG results: PT/INR, D-dimer PT 13.1 Seconds (9.4-12.1) H 03/15/17 16:42 - Impressions Impressions Hip X-Ray 03/16/17 14:22 IMPRESSION: Satisfactory appearance status post left hip arthroplasty. D/ / 03/16/2017 16:14:43 Gage Jimenez MD / shikha Interpreting Provider: Gage Jimenez MD - VTE Documentation of Mechanical Device: Venous foot pump, device Consult Discharge Plan - Plan Referrals: NONE,PCP [Primary Care Provider] -
[2017-03-17] MEDS ORDERED: Iron Sucrose Complex 400 MG in 0.9 % Sodium Chloride 250 ML IVPB ONE (12:52)
[2017-03-17] MEDS: *HR* Morphine Sulfate SR (12 HR) 60 MG TABLET.ER PO SCH (18:19)
[2017-03-17] MEDS: Acetaminophen 325 MG TABLET PO PRN (21:22)
[2017-03-17] MEDS: Temazepam 15 MG CAPSULE PO PRN (21:31)
[2017-03-18] MEDS: *HR* OxyCODONE Immed Rel 5 MG TABLET PO PRN ×4 (04:50→23:25)
[2017-03-18] MEDS: *HR* Heparin 5,000 UNIT/ML VIAL SQ SCH (06:16)
[2017-03-18] MEDS: *HR* Morphine Sulfate SR (12 HR) 60 MG TABLET.ER PO SCH ×2 (06:16→17:20)
[2017-03-18] MEDS: Ringers Solution, Lactated 1,000 ML IVC SCH ×3 (07:00→22:05)
[2017-03-18 07:30] LABS: Basophils % 0.4 %; Eosinophils # 0.1 K/mcL (0.0-0.6); Eosinophils % 2.5 %; Hematocrit 25.4 % (35.3-44.9); Immature Granulocytes % 0.4 % (0-4); Lymphocytes # 0.7 K/mcL (0.6-4.6); Lymphocytes % 13.1 %; Mean Corpuscular HGB Conc 29.1 g/dL (31.6-35.5); Mean Corpuscular Hemoglobin 24.3 pg (28.0-33.3); Mean Corpuscular Volume 83.6 fL (83.0-100.0); Mean Platelet Volume 11.3 fL (9.4-12.4); Monocytes # 0.6 K/mcL (0.0-1.3); Monocytes % 10.9 %; Neutrophils # 3.7 K/mcL (1.6-8.9); Platelet Count 127 K/mcL (140-400); Red Blood Count 3.04 M/mcL (3.82-4.97); Red Cell Distribution Width 19.6 % (11.5-14.5); Segmented Neutrophils % 72.7 %
[2017-03-18 07:44] LABS: BUN/Creatinine Ratio 14 (6-26); Blood Urea Nitrogen 8 mg/dL (7-20); Calcium 8.4 mg/dL (8.6-10.8); Carbon Dioxide 16 mEq/L (19-29); Chloride 107 mEq/L (98-109); Glucose 107 mg/dL (70-99); Osmolality,Calculated 279 (280-300); Potassium 3.6 mEq/L (3.5-4.5); Sodium 135 mEq/L (136-145); eGFR For African Americans > 60 (> 60); eGFR For Non-African Americans > 60 (> 60)
[2017-03-18] MEDS: Ascorbic Acid 500 MG TABLET PO SCH ×2 (08:12→17:21)
[2017-03-18] MEDS: Multivit/Ca/Min/Fe/FA 1 TAB TABLET PO SCH (08:12)
[2017-03-18] MEDS: *HR* Morphine 2 MG/ML SYRINGE IVP PRN ×3 (08:12→21:11)
[2017-03-18] MEDS: Insulin LISPRO 300 UNITS/3 ML VIAL SQ SCH ×4 (08:16→20:59)
[2017-03-18] MEDS: 0.9 % Sodium Chloride 1,000 ML IVC SCH (08:17)
[2017-03-18 08:24] LABS: Hemoglobin 7.4 g/dL (11.5-15.4)
[2017-03-18] MEDS ORDERED: 0.9 % Sodium Chloride 1,000 ML IVC ONE (11:21)
--- NOTE | 2017-03-18 11:29 | Internal Med Progress Note ---
Date of Encounter: 03/18/17 Time of Encounter: 11:25 - Assessment and plan (1) Hip fracture, left Current Visit: Yes Status: Acute Assessment and plan: s/p hip arthroplasty. c/w pain control. ortho is following. Will be placed at d/ c. Monitor blood counts. c/w IVF Qualifiers: Encounter type: initial encounter Fracture type: closed Qualified Code(s) : S72.002A - Fracture of unspecified part of neck of left femur, initial encounter for closed fracture (2) Diabetes Current Visit: No Status: Chronic Assessment and plan: c/w SSI. c/w accuchecks. watch for hypoglycemia. 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 Will repeat H/H at noon and Q 6 hours. May need to transfuse a unit at least later. Has low BP and will give her 1 L bolus NS. c/w iron oral supplements. s/p 1 dose of IV venofer 03/17 Qualifiers: Anemia type: unspecified type Qualified Code(s): D64.9 - Anemia, unspecified (4) DVT prophylaxis Current Visit: Yes Status: Acute Assessment and plan: hold heparin SQ and place SCDs given risk of bleed - Subjective Interval history: Patient continues to complain of pain. Her H/H is dropping and is at 7.4 today and was around 9 yesterday. This has dropped consistently since the hip replacement. Her BP is on the lower side. She is afebrile. Had a bowel movement that was not bloody yesterday. She has no abdominal pain No acute events. Pain is an issue. Requiring IV and oral pain controlling agents. She takes MS Contin 60 mg BID at home. She is s/p left hip arthroplasty 03/16. No complications. - Constitutional Vitals: Temp Pulse Resp BP Pulse Ox 98.3 F 84 16 104/63 99 03/18/17 06:34 03/18/17 06:34 03/18/17 06:34 03/18/17 06:34 03/18/17 06:34 General appearance: Present: cachectic, cooperative, A&O X 3, pleasant, no acute distress, answers questions appropriately Exam: GEN: NAD CVS: RRR. S1, S2, No m/r/g RESP: CTAB ABD: Soft, NT, ND,+BS EXT: No edema. Area of left hip with tenderness to palpation. some mild swelling noted. NEURO: Nonfocal Internal Medicine: Result - Labs CBC & Chem 7: 03/18/17 06:33 03/18/17 06:33 Labs: Short CBC 03/18/17 Range/Units 06:33 WBC 5.1 (4.3-11.1) K/mcL Hgb 7.4 L D (11.5-15.4) g/dL Hct 25.4 L (35.3-44.9) % Plt Count 127 L D (140-400) K/mcL Neutrophils # 3.7 (1.6-8.9) K/mcL BMP 03/18/17 06:33 Sodium 135 L Potassium 3.6 Chloride 107 Carbon Dioxide 16 L BUN 8 Creatinine 0.59 Glucose 107 H Calcium 8.4 L - ABG Interpretation ABG results: PT/INR, D-dimer PT 13.1 Seconds (9.4-12.1) H 03/15/17 16:42 - VTE Documentation of Mechanical Device: Venous foot pump, device Consult Discharge Plan - Plan Referrals: NONE,PCP [Primary Care Provider] -
[2017-03-18 13:07] LABS: Hematocrit 24.7 % (35.3-44.9); Hemoglobin 7.6 g/dL (11.5-15.4)
--- NOTE | 2017-03-18 13:37 | Event Note ---
Date of Encounter: 03/18/17 Time of Encounter: 12:00 Left hip hemiarthroplasty 03/16/17 PCR- POD#2 PCR - Patient seen at bedside. Dressing to be changed prior to DC Labs: H/H 7.6/24.7 - hospitalist managing acute blood loss anemia, considering RBC Pain control: Adequate, she takes MS contin at home Participating in PT. All questions and concerns addressed. Educated on use of incentive spirometer, ambulation, and hydration. Patient educated on post-operative restrictions and care. Addressed: see above. D/C plan:. Therapy recommends DC to swingbed facility
--- NOTE | 2017-03-18 15:43 | Orthopedics Progress Note ---
Date of Encounter: 03/18/17 Time of Encounter: 07:55 - Assessment and Plan (1) Hip fracture, left Current Visit: Yes Status: Acute Qualifiers: Encounter type: initial encounter Fracture type: closed Qualified Code(s) : S72.002A - Fracture of unspecified part of neck of left femur, initial encounter for closed fracture (2) History of hemiarthroplasty of left hip Current Visit: Yes Status: Acute Subjective Principal diagnosis: s/p left windy 03/17 Interval history: Patient was seen this morning doing well without complaints. Afebrile vital signs stable. Operative extremity: Neurovascularly intact Dressing intact, saturated 50% Calves nontender Assessment and plan: Continue with postoperative care Hemoglobin 7.6 - patient asymptomatic - hospitalist following discharged today if pending hospitalist clearance Follow up as outpatient with [facility] as scheduled Objective Vital signs: Vital Signs Temp Pulse Resp BP Pulse Ox 03/18/17 11:00 97.8 F 87 16 108/56 99 03/18/17 06:34 98.3 F 84 16 104/63 99 03/18/17 03:23 98.1 F 87 14 100/56 100 03/18/17 00:06 98.4 F 81 14 91/57 100 03/17/17 19:06 100.1 F H 113 14 143/84 98 Intake and Output 03/17/17 03/18/17 03/18/17 23:59 07:59 15:59 Intake Total 270 / 270 1040 / 1040 Output Total 245 / 245 600 / 600 Balance 25 / 25 440 / 440 Intake: IV Fluids 270 / 270 800 / 800 0.9 % Sodium Chloride 1,000 ML 800 / 800 @ 50 mls/hr IVC .Q20H P[facility] Rx#: [id number] Venofer 400 MG In 0.9 % Sodium 270 / 270 Chloride 250 ML @ 120 mls/hr IVPB ONCE ONE Rx#:[id number] Oral 240 / 240 Output: Straight Cath 245 / 245 Catheter 600 / 600 Urethral (Barton) 600 / 600 Other: Meal Breakfast Percent of Meal Consumed 25% Stool Size Large Stool Consistency soft Stool Color Brown # Bowel Movement Diapers 1 Weight 54.9 kg Blood Glucose* 189 144 119 Patient Weight 03/18/17 23:59 Weight 54.9 kg - Labs CBC & BMP: 03/18/17 12:31 03/18/17 06:33 Labs: Abnormal lab results RBC 3.04 M/mcL (3.82-4.97) L 03/18/17 06:33 Hgb 7.6 g/dL (11.5-15.4) L 03/18/17 12:31 Hct 24.7 % (35.3-44.9) L 03/18/17 12:31 MCH 24.3 pg (28.0-33.3) L 03/18/17 06:33 MCHC 29.1 g/dL (31.6-35.5) L 03/18/17 06:33 RDW 19.6 % (11.5-14.5) H 03/18/17 06:33 Plt Count 127 K/mcL (140-400) L D 03/18/17 06:33 PT 13.1 Seconds (9.4-12.1) H 03/15/17 16:42 Sodium 135 mEq/L (136-145) L 03/18/17 06:33 Carbon Dioxide 16 mEq/L (19-29) L 03/18/17 06:33 Glucose 107 mg/dL (70-99) H 03/18/17 06:33 POC Glucose 119 (58-89) H 03/18/17 11:57 Calculated Osmolality 279 (280-300) L 03/18/17 06:33 Calcium 8.4 mg/dL (8.6-10.8) L 03/18/17 06:33 Iron 24 mcg/dL (50-170) L 03/16/17 04:34 % Saturation 9 % (15-50) L 03/16/17 04:34 Urine Blood Trace (Negative) H 03/15/17 16:53 Urine Microscopic RBC 3-5 per hpf (0-3) H 03/15/17 16:53 Ur Squamous Epith Cells Many per lpf (None-Few) H 03/15/17 16:53 - VTE Documentation of Mechanical Device: Venous foot pump, device Consult Discharge Plan - Plan Referrals: NONE,PCP [Primary Care Provider] -
[2017-03-18 18:14] LABS: Hematocrit 23.5 % (35.3-44.9); Hemoglobin 7.3 g/dL (11.5-15.4)
[2017-03-18] MEDS: Temazepam 15 MG CAPSULE PO PRN (21:11)
[2017-03-19] MEDS: *HR* Morphine 2 MG/ML SYRINGE IVP PRN ×3 (00:36→20:11)
[2017-03-19 00:41] LABS: Basophils % 0.5 %; Eosinophils # 0.3 K/mcL (0.0-0.6); Eosinophils % 4.4 %; Hematocrit 21.7 % (35.3-44.9); Hemoglobin 6.8 g/dL (11.5-15.4); Immature Granulocytes % 0.3 % (0-4); Lymphocytes % 16.3 %; Mean Corpuscular HGB Conc 31.3 g/dL (31.6-35.5); Mean Corpuscular Hemoglobin 25.1 pg (28.0-33.3); Mean Corpuscular Volume 80.1 fL (83.0-100.0); Mean Platelet Volume 8.5 fL (9.4-12.4); Monocytes # 0.5 K/mcL (0.0-1.3); Monocytes % 9.1 %; Neutrophils # 4.1 K/mcL (1.6-8.9); Platelet Count 234 K/mcL (140-400); Red Blood Count 2.71 M/mcL (3.82-4.97); Red Cell Distribution Width 19.4 % (11.5-14.5); Segmented Neutrophils % 69.4 %
[2017-03-19] MEDS: *HR* Morphine Sulfate SR (12 HR) 60 MG TABLET.ER PO SCH ×2 (05:16→17:34)
[2017-03-19] MEDS: *HR* OxyCODONE Immed Rel 5 MG TABLET PO PRN ×3 (06:37→19:01)
[2017-03-19 06:52] LABS: Basophils % 0.5 %; Eosinophils # 0.3 K/mcL (0.0-0.6); Eosinophils % 5.4 %; Hematocrit 22.9 % (35.3-44.9); Hemoglobin 6.9 g/dL (11.5-15.4); Immature Granulocytes % 0.4 % (0-4); Lymphocytes # 1.1 K/mcL (0.6-4.6); Lymphocytes % 18.9 %; Mean Corpuscular HGB Conc 30.1 g/dL (31.6-35.5); Mean Corpuscular Hemoglobin 24.6 pg (28.0-33.3); Mean Corpuscular Volume 81.5 fL (83.0-100.0); Mean Platelet Volume 8.5 fL (9.4-12.4); Monocytes # 0.5 K/mcL (0.0-1.3); Monocytes % 9.4 %; Neutrophils # 3.6 K/mcL (1.6-8.9); Platelet Count 251 K/mcL (140-400); Red Blood Count 2.81 M/mcL (3.82-4.97); Red Cell Distribution Width 19.4 % (11.5-14.5); Segmented Neutrophils % 65.4 %
[2017-03-19 07:03] LABS: BUN/Creatinine Ratio 13 (6-26); Blood Urea Nitrogen 7 mg/dL (7-20); Calcium 8.3 mg/dL (8.6-10.8); Carbon Dioxide 24 mEq/L (19-29); Chloride 107 mEq/L (98-109); Glucose 110 mg/dL (70-99); Osmolality,Calculated 281 (280-300); Potassium 3.6 mEq/L (3.5-4.5); Sodium 136 mEq/L (136-145); eGFR For African Americans > 60 (> 60); eGFR For Non-African Americans > 60 (> 60)
[2017-03-19] MEDS: Insulin LISPRO 300 UNITS/3 ML VIAL SQ SCH ×4 (07:37→22:25)
--- NOTE | 2017-03-19 07:55 | Orthopedics Progress Note ---
Date of Encounter: 03/19/17 Time of Encounter: 07:55 Subjective Principal diagnosis: s/p left windy 03/17 Interval history: Patient was seen this morning doing well without complaints. Afebrile vital signs stable. Operative extremity: Neurovascularly intact Dressing clean dry and intact Calves nontender Assessment and plan: Continue with postoperative care Stable for discharge Objective Vital signs: Vital Signs Temp Pulse Resp BP Pulse Ox 03/19/17 07:25 98.1 F 95 16 96/60 98 03/19/17 05:18 97.8 F 93 16 112/63 98 03/18/17 23:20 98.9 F 94 16 112/78 96 03/18/17 20:19 99.1 F 100 18 145/75 100 03/18/17 15:43 99.4 F 84 16 96/59 98 03/18/17 11:00 97.8 F 87 16 108/56 99 Intake and Output 03/18/17 03/18/17 03/19/17 15:59 23:59 07:59 Intake Total 1040 / 1040 1120 / 1120 100 / 100 Output Total 600 / 600 150 / 150 200 / 200 Balance 440 / 440 970 / 970 -100 / -100 Intake: IV Fluids 800 / 800 1000 / 1000 0.9 % Sodium Chloride 1,000 ML 800 / 800 1000 / 1000 @ 3750 mls/hr IVC .Q16M ONE Rx# :[id number] Oral 240 / 240 120 / 120 100 / 100 Output: Catheter 600 / 600 150 / 150 200 / 200 Urethral (Barton) 600 / 600 Other: Meal Breakfast Dinner Percent of Meal Consumed 25% 40% Stool Size Moderate Stool Consistency soft Stool Characteristics Normal for Patient Stool Color Brown # Bowel Movements 1 Blood Glucose* 119 175 126 - Labs CBC & BMP: 03/19/17 06:37 03/19/17 06:37 Labs: Abnormal lab results RBC 2.81 M/mcL (3.82-4.97) L 03/19/17 06:37 Hgb 6.9 g/dL (11.5-15.4) L 03/19/17 06:37 Hct 22.9 % (35.3-44.9) L 03/19/17 06:37 MCV 81.5 fL (83.0-100.0) L 03/19/17 06:37 MCH 24.6 pg (28.0-33.3) L 03/19/17 06:37 MCHC 30.1 g/dL (31.6-35.5) L 03/19/17 06:37 RDW 19.4 % (11.5-14.5) H 03/19/17 06:37 MPV 8.5 fL (9.4-12.4) L 03/19/17 06:37 PT 13.1 Seconds (9.4-12.1) H 03/15/17 16:42 Creatinine 0.54 mg/dL (0.57-1.11) L 03/19/17 06:37 Glucose 110 mg/dL (70-99) H 03/19/17 06:37 POC Glucose 126 (58-89) H 03/19/17 07:29 Calcium 8.3 mg/dL (8.6-10.8) L 03/19/17 06:37 Iron 24 mcg/dL (50-170) L 03/16/17 04:34 % Saturation 9 % (15-50) L 03/16/17 04:34 Urine Blood Trace (Negative) H 03/15/17 16:53 Urine Microscopic RBC 3-5 per hpf (0-3) H 03/15/17 16:53 Ur Squamous Epith Cells Many per lpf (None-Few) H 03/15/17 16:53 - VTE Documentation of Mechanical Device: Venous foot pump, device Consult Discharge Plan - Plan Referrals: Aida Pearson, PAC [Physician Change Coordinator] - 04/01/17 8:00 am Aida Meek PAC [Physician Change Coordinator] - 03/25/17 3:15 pm Jorge Soto MD [Partnered Physician] - 04/12/17 9:35 am NONE,PCP [Primary Care Provider] - Barrington Phillip MD [Partnered Physician] - 03/28/17 10:30 am
[2017-03-19] MEDS: Ascorbic Acid 500 MG TABLET PO SCH ×2 (08:31→17:34)
[2017-03-19] MEDS: Multivit/Ca/Min/Fe/FA 1 TAB TABLET PO SCH (08:31)
[2017-03-19] MEDS ORDERED: 0.9 % Sodium Chloride 1,000 ML IVC ONE (10:01)
[2017-03-19] MEDS ORDERED: 0.9 % Sodium Chloride 250 ML ONE (12:25)
--- NOTE | 2017-03-19 12:58 | Internal Med Progress Note ---
Date of Encounter: 03/19/17 Time of Encounter: 09:30 - Assessment and plan (1) Hip fracture, left Current Visit: Yes Status: Acute Assessment and plan: s/p hip arthroplasty. c/w pain control. ortho is following. Will be placed at d/ c. Monitor blood counts. c/w IVF Qualifiers: Encounter type: initial encounter Fracture type: closed Qualified Code(s) : S72.002A - Fracture of unspecified part of neck of left femur, initial encounter for closed fracture (2) Anemia Current Visit: No Status: Acute Assessment and plan: Her hemoglobin dropped to below 7. She is ordered a unit of PRBCs this morning. Her blood pressure is on the softer side and I will give her 1 L bolus as we get PRBCs ready. I am not exactly sure where she is losing but however she is iron deficient. She has no signs of bleeding. I will order a CT abdomen and pelvis to rule out intra-abdominal pathology. She has no significant swelling at the area of her arthroplasty but she is complaining of pain at that area. We will continue to trend her hemoglobin every 6 hours. Qualifiers: Anemia type: unspecified type Qualified Code(s): D64.9 - Anemia, unspecified (3) Diabetes Current Visit: No Status: Chronic Assessment and plan: c/w SSI. c/w accuchecks. watch for hypoglycemia. Qualifiers: Diabetes mellitus type: type 2 Diabetes mellitus complication status: without complication Diabetes mellitus rat exterminator insulin use: with nursing home use Qualified Code(s): E11.9 - Type 2 diabetes mellitus without complications ; Z79.4 - penitentiary (current) use of insulin; Z79.4 - meterman (current) use of insulin; Z79.4 - meterman (current) use of insulin; Z79.4 - meterman ( current) use of insulin (4) DVT prophylaxis Current Visit: Yes Status: Acute Assessment and plan: SCDs given risk of bleed - Subjective Interval history: Patient continues to complain of pain. Her H/H is dropping and to below 7 needing a unit PRBCs this morning. She still complain of pain at the hip. She is afebrile. Had a bowel movement that was not bloody yesterday. She has no abdominal pain No acute events. Pain is an issue. Requiring IV and oral pain controlling agents. She is s/p left hip arthroplasty 12/6. No complications. - Constitutional Vitals: Temp Pulse Resp BP Pulse Ox 98.2 F 86 16 101/63 97 03/19/17 12:07 03/19/17 12:07 03/19/17 12:07 03/19/17 12:07 03/19/17 12:07 General appearance: Present: cachectic, cooperative, A&O X 3, pleasant, no acute distress, answers questions appropriately Exam: GEN: NAD CVS: RRR. S1, S2, No m/r/g RESP: CTAB ABD: Soft, NT, ND,+BS EXT: No edema. Area of left hip with tenderness to palpation. some mild swelling noted. NEURO: Nonfocal Internal Medicine: Result - Labs CBC & Chem 7: 03/19/17 06:37 03/19/17 06:37 Labs: Short CBC 03/18/17 03/18/17 03/19/17 Range/Units 12:31 18:00 00:33 WBC 6.0 (4.3-11.1) K/mcL Hgb 7.6 L 7.3 L 6.8 L (11.5-15.4) g/dL Hct 24.7 L 23.5 L 21.7 L (35.3-44.9) % Plt Count 234 D (140-400) K/mcL Neutrophils # 4.1 (1.6-8.9) K/mcL 03/19/17 Range/Units 06:37 WBC 5.6 (4.3-11.1) K/mcL Hgb 6.9 L (11.5-15.4) g/dL Hct 22.9 L (35.3-44.9) % Plt Count 251 (140-400) K/mcL Neutrophils # 3.6 (1.6-8.9) K/mcL BMP 03/19/17 06:37 Sodium 136 Potassium 3.6 Chloride 107 Carbon Dioxide 24 BUN 7 Creatinine 0.54 L Glucose 110 H Calcium 8.3 L - ABG Interpretation ABG results: PT/INR, D-dimer PT 13.1 Seconds (9.4-12.1) H 03/15/17 16:42 - Impressions Impressions Abdomen/Pelvis CT 03/19/17 09:55 IMPRESSION: Within the limitations of the exam, no evidence for extraperitoneal/retroperitoneal hemorrhage/hematoma. Soft tissue swelling, subcutaneous edema and soft tissue gas noted about the left hip likely relating to the recent left hip arthroplasty. No definite focal fluid collection identified. Gaseous prominence of sigmoid colon and rectum, nonspecific but possibly reflecting postoperative ileus. D/ / 03/19/2017 10:47:16 Livan Gifford MD / diamondrtze Interpreting Provider: Livan Gifford MD - VTE Documentation of Mechanical Device: Venous foot pump, device Consult Discharge Plan - Plan Referrals: Aida Pearson, PAC [Physician Supervisor Warping Department] - 04/01/17 8:00 am Aida Meek PAC [Physician Supervisor Warping Department] - 03/25/17 3:15 pm Jorge Soto MD [Partnered Physician] - 04/12/17 9:35 am NONE,PCP [Primary Care Provider] - Barrington Phillip MD [Partnered Physician] - 03/28/17 10:30 am
[2017-03-19] MEDS: Acetaminophen 325 MG TABLET PO PRN ×2 (15:47→21:22)
[2017-03-20 01:15] LABS: Basophils % 0.7 %; Eosinophils # 0.5 K/mcL (0.0-0.6); Hematocrit 26.3 % (35.3-44.9); Hemoglobin 8.2 g/dL (11.5-15.4); Immature Granulocytes % 0.3 % (0-4); Lymphocytes # 1.2 K/mcL (0.6-4.6); Lymphocytes % 20.6 %; Mean Corpuscular HGB Conc 31.2 g/dL (31.6-35.5); Mean Corpuscular Hemoglobin 25.8 pg (28.0-33.3); Mean Corpuscular Volume 82.7 fL (83.0-100.0); Mean Platelet Volume 9.1 fL (9.4-12.4); Monocytes # 0.6 K/mcL (0.0-1.3); Monocytes % 9.7 %; Neutrophils # 3.5 K/mcL (1.6-8.9); Platelet Count 255 K/mcL (140-400); Red Blood Count 3.18 M/mcL (3.82-4.97); Red Cell Distribution Width 18.3 % (11.5-14.5); Segmented Neutrophils % 59.7 %
[2017-03-20 01:29] LABS: BUN/Creatinine Ratio 12 (6-26); Blood Urea Nitrogen 6 mg/dL (7-20); Calcium 8.4 mg/dL (8.6-10.8); Carbon Dioxide 23 mEq/L (19-29); Chloride 108 mEq/L (98-109); Glucose 112 mg/dL (70-99); Osmolality,Calculated 280 (280-300); Potassium 3.6 mEq/L (3.5-4.5); Sodium 136 mEq/L (136-145); eGFR For African Americans > 60 (> 60); eGFR For Non-African Americans > 60 (> 60)
[2017-03-20] MEDS: *HR* Morphine 2 MG/ML SYRINGE IVP PRN ×2 (04:43→07:49)
[2017-03-20] MEDS: *HR* Morphine Sulfate SR (12 HR) 60 MG TABLET.ER PO SCH ×2 (05:57→17:43)
[2017-03-20] MEDS: Ascorbic Acid 500 MG TABLET PO SCH ×2 (07:49→17:43)
[2017-03-20] MEDS: Multivit/Ca/Min/Fe/FA 1 TAB TABLET PO SCH (07:49)
[2017-03-20] MEDS: Insulin LISPRO 300 UNITS/3 ML VIAL SQ SCH ×4 (07:51→21:12)
--- NOTE | 2017-03-20 08:54 | Orthopedics Progress Note ---
Date of Encounter: 03/20/17 Time of Encounter: 08:53 - Assessment and Plan (1) Fracture of femur Current Visit: Yes Status: Acute Qualifiers: Encounter type: initial encounter Femur location: neck Fracture type: closed Laterality: left Qualified Code(s): S72.002A - Fracture of unspecified part of neck of left femur, initial encounter for closed fracture Subjective Principal diagnosis: s/p left windy 03/17 Interval history: Patient was seen this morning doing well without complaints. Afebrile vital signs stable. Operative extremity: Neurovascularly intact Dressing clean dry and intact Calves nontender Assessment and plan: Continue with postoperative care Stable for discharge from an ortho standpoint. Objective Vital signs: Vital Signs Temp Pulse Resp BP Pulse Ox 03/20/17 07:13 98.8 F 92 16 132/77 98 03/19/17 20:50 98.5 F 84 16 110/58 03/19/17 17:10 99.0 F 88 16 102/52 99 03/19/17 12:07 98.2 F 86 16 101/63 97 Intake and Output 03/19/17 03/20/17 03/20/17 23:59 07:59 15:59 Intake Total 0 / 0 350 / 350 360 / 360 Output Total 300 / 300 750 / 750 Balance -300 / -300 -400 / -400 360 / 360 Intake: Oral 360 / 360 Blood Product 0 / 0 350 / 350 Rbcs Leuko Poor As-1 Unit 0 / 0 350 / 350 [id number] Output: Catheter 300 / 300 750 / 750 Urethral (Barton) 300 / 300 750 / 750 Other: Meal Breakfast Percent of Meal Consumed 10% Blood Glucose* 175 175 - Labs CBC & BMP: 03/20/17 00:34 03/20/17 00:34 Labs: Abnormal lab results RBC 3.18 M/mcL (3.82-4.97) L 03/20/17 00:34 Hgb 8.2 g/dL (11.5-15.4) L 03/20/17 00:34 Hct 26.3 % (35.3-44.9) L 03/20/17 00:34 MCV 82.7 fL (83.0-100.0) L 03/20/17 00:34 MCH 25.8 pg (28.0-33.3) L 03/20/17 00:34 MCHC 31.2 g/dL (31.6-35.5) L 03/20/17 00:34 RDW 18.3 % (11.5-14.5) H 03/20/17 00:34 MPV 9.1 fL (9.4-12.4) L 03/20/17 00:34 PT 13.1 Seconds (9.4-12.1) H 03/15/17 16:42 BUN 6 mg/dL (7-20) L 03/20/17 00:34 Creatinine 0.52 mg/dL (0.57-1.11) L 03/20/17 00:34 Glucose 112 mg/dL (70-99) H 03/20/17 00:34 POC Glucose 175 (58-89) H 03/20/17 07:15 Calcium 8.4 mg/dL (8.6-10.8) L 03/20/17 00:34 Iron 24 mcg/dL (50-170) L 03/16/17 04:34 % Saturation 9 % (15-50) L 03/16/17 04:34 Urine Blood Trace (Negative) H 03/15/17 16:53 Urine Microscopic RBC 3-5 per hpf (0-3) H 03/15/17 16:53 Ur Squamous Epith Cells Many per lpf (None-Few) H 03/15/17 16:53 - VTE Documentation of Mechanical Device: Venous foot pump, device Consult Discharge Plan - Plan Referrals: Aida Pearson, PAC [Physician Clock And Watch Hands Painter] - 04/01/17 8:00 am Aida Meek PAC [Physician Clock And Watch Hands Painter] - 03/25/17 3:15 pm Jorge Soto MD [Partnered Physician] - 04/12/17 9:35 am NONE,PCP [Primary Care Provider] - Barrington Phillip MD [Partnered Physician] - 03/28/17 10:30 am
[2017-03-20] MEDS: *HR* OxyCODONE Immed Rel 5 MG TABLET PO PRN ×3 (10:44→20:02)
--- NOTE | 2017-03-20 11:10 | Internal Med Progress Note ---
Date of Encounter: 03/20/17 Time of Encounter: 10:00 - Assessment and plan (1) Hip fracture, left Current Visit: Yes Status: Acute Assessment and plan: s/p hip arthroplasty. c/w pain control. ortho is following. Will be placed at d/ c. Monitor blood counts. c/w IVF. My plan for us to discharge tomorrow if she keeps her hemoglobin stable and her blood pressure remained stable. I have advised nursing staff to try to avoid IV pain medications. Qualifiers: Encounter type: initial encounter Fracture type: closed Qualified Code(s) : S72.002A - Fracture of unspecified part of neck of left femur, initial encounter for closed fracture (2) Anemia Current Visit: No Status: Acute Assessment and plan: Her H&H seems to be stable this morning. She is status post 1 unit PRBCs yesterday. We will continue to monitor. I will check labs in the morning and if her H&H remains stable we will discharge. She had a CT abdomen and pelvis done which did not show any acute abdominal pathology. Qualifiers: Anemia type: unspecified type Qualified Code(s): D64.9 - Anemia, unspecified (3) Diabetes Current Visit: No Status: Chronic Assessment and plan: c/w SSI. c/w accuchecks. watch for hypoglycemia. Qualifiers: Diabetes mellitus type: type 2 Diabetes mellitus complication status: without complication Diabetes mellitus oil heaterman insulin use: with oil heaterman use Qualified Code(s): E11.9 - Type 2 diabetes mellitus without complications ; Z79.4 - intermediate (current) use of insulin; Z79.4 - termite treater helper (current) use of insulin; Z79.4 - termite treater helper (current) use of insulin; Z79.4 - termite treater helper ( current) use of insulin (4) DVT prophylaxis Current Visit: Yes Status: Acute Assessment and plan: SCDs given risk of bleed - Subjective Interval history: She is status post 1 unit PRBCs yesterday. Her hemoglobin seems to be stable and her blood pressure is stable as well. Her daughter and her son-in-law are in the room this morning. They tell me me that the patient is actually enrolled in hospice and they are the ones were prescribing her MS Contin. Her pain has been an issue throughout her stay and that has been her main concern. She is s/p left hip arthroplasty 03/16. No complications. - Constitutional Vitals: Temp Pulse Resp BP Pulse Ox 98.7 F 78 18 119/76 99 03/20/17 11:04 03/20/17 11:04 03/20/17 11:04 03/20/17 11:04 03/20/17 11:04 General appearance: Present: cachectic, cooperative, A&O X 3, pleasant, no acute distress, answers questions appropriately Exam: GEN: NAD CVS: RRR. S1, S2, No m/r/g RESP: CTAB ABD: Soft, NT, ND,+BS EXT: No edema. Area of left hip with tenderness to palpation. some mild swelling noted. NEURO: Nonfocal Internal Medicine: Result - Labs CBC & Chem 7: 03/20/17 00:34 03/20/17 00:34 Labs: Short CBC 03/20/17 Range/Units 00:34 WBC 5.9 (4.3-11.1) K/mcL Hgb 8.2 L (11.5-15.4) g/dL Hct 26.3 L (35.3-44.9) % Plt Count 255 (140-400) K/mcL Neutrophils # 3.5 (1.6-8.9) K/mcL BMP 03/20/17 00:34 Sodium 136 Potassium 3.6 Chloride 108 Carbon Dioxide 23 BUN 6 L Creatinine 0.52 L Glucose 112 H Calcium 8.4 L - ABG Interpretation ABG results: PT/INR, D-dimer PT 13.1 Seconds (9.4-12.1) H 03/15/17 16:42 - Impressions Impressions Abdomen/Pelvis CT 03/19/17 09:55 IMPRESSION: Within the limitations of the exam, no evidence for extraperitoneal/retroperitoneal hemorrhage/hematoma. Soft tissue swelling, subcutaneous edema and soft tissue gas noted about the left hip likely relating to the recent left hip arthroplasty. No definite focal fluid collection identified. Gaseous prominence of sigmoid colon and rectum, nonspecific but possibly reflecting postoperative ileus. D/ / 03/19/2017 10:47:16 Livan Gifford MD / bcarter Interpreting Provider: Livan Gifford MD - VTE Documentation of Mechanical Device: Venous foot pump, device Consult Discharge Plan - Plan Referrals: Aida Pearson, PAC [Physician Flake Cutter Operator] - 04/01/17 8:00 am Aida Meek PAC [Physician Flake Cutter Operator] - 03/25/17 3:15 pm Jorge Soto MD [Partnered Physician] - 04/12/17 9:35 am NONE,PCP [Primary Care Provider] - Barrington Phillip MD [Partnered Physician] - 03/28/17 10:30 am
[2017-03-20] MEDS: Acetaminophen 325 MG TABLET PO PRN (13:53)
[2017-03-20] MEDS: Ondansetron 4 MG/2 ML VIAL IVP PRN (20:27)
[2017-03-20] MEDS: Temazepam 15 MG CAPSULE PO PRN (21:11)
[2017-03-21] MEDS: *HR* OxyCODONE Immed Rel 5 MG TABLET PO PRN ×2 (02:05→08:11)
[2017-03-21] MEDS: Acetaminophen 325 MG TABLET PO PRN ×2 (03:49→09:43)
[2017-03-21 04:44] LABS: Basophils % 0.6 %; Eosinophils # 0.5 K/mcL (0.0-0.6); Eosinophils % 8.7 %; Hematocrit 27.3 % (35.3-44.9); Hemoglobin 8.6 g/dL (11.5-15.4); Immature Granulocytes % 0.4 % (0-4); Lymphocytes # 1.2 K/mcL (0.6-4.6); Lymphocytes % 22.7 %; Mean Corpuscular HGB Conc 31.5 g/dL (31.6-35.5); Mean Corpuscular Hemoglobin 25.7 pg (28.0-33.3); Mean Corpuscular Volume 81.7 fL (83.0-100.0); Mean Platelet Volume 8.7 fL (9.4-12.4); Monocytes # 0.4 K/mcL (0.0-1.3); Monocytes % 7.7 %; Neutrophils # 3.1 K/mcL (1.6-8.9); Platelet Count 324 K/mcL (140-400); Red Blood Count 3.34 M/mcL (3.82-4.97); Red Cell Distribution Width 18.6 % (11.5-14.5); Segmented Neutrophils % 59.9 %
[2017-03-21 04:58] LABS: BUN/Creatinine Ratio 12 (6-26); Blood Urea Nitrogen 6 mg/dL (7-20); Calcium 8.4 mg/dL (8.6-10.8); Carbon Dioxide 24 mEq/L (19-29); Chloride 104 mEq/L (98-109); Glucose 99 mg/dL (70-99); Osmolality,Calculated 278 (280-300); Potassium 3.6 mEq/L (3.5-4.5); Sodium 135 mEq/L (136-145); eGFR For African Americans > 60 (> 60); eGFR For Non-African Americans > 60 (> 60)
[2017-03-21] MEDS: *HR* Morphine Sulfate SR (12 HR) 60 MG TABLET.ER PO SCH (06:19)
[2017-03-21 07:07] VITALS: BP 104/68
[2017-03-21] MEDS: Insulin LISPRO 300 UNITS/3 ML VIAL SQ SCH (08:04)
[2017-03-21] MEDS: Ascorbic Acid 500 MG TABLET PO SCH (08:11)
[2017-03-21] MEDS: Multivit/Ca/Min/Fe/FA 1 TAB TABLET PO SCH (08:11)
--- NOTE | 2017-03-21 08:50 | Discharge Summary ---
Date of Encounter: 03/21/17 Time of Encounter: 08:45 - Discharge Diagnosis (1) Hip fracture, left Priority: Primary Status: Acute Qualifiers: Encounter type: initial encounter Fracture type: closed Qualified Code(s) : S72.002A - Fracture of unspecified part of neck of left femur, initial encounter for closed fracture (2) Anemia Priority: Primary Status: Acute Qualifiers: Anemia type: unspecified type Qualified Code(s): D64.9 - Anemia, unspecified (3) Diabetes Priority: Secondary Status: Chronic Qualifiers: Diabetes mellitus type: type 2 Diabetes mellitus complication status: without complication Diabetes mellitus longterm insulin use: with longterm use Qualified Code(s): E11.9 - Type 2 diabetes mellitus without complications ; Z79.4 - local company intermodal truck driver (current) use of insulin; Z79.4 - penitentiary (current) use of insulin; Z79.4 - local company intermodal truck driver (current) use of insulin; Z79.4 - penitentiary ( current) use of insulin - Discharge Medications Prescriptions: OxyCODONE Immed Rel [Roxicodone 5 MG] 5 mg PO Q4HR PRN #10 tablet PRN Reason: Pain Morphine Sulfate SR (12 HR) [MS Contin] 60 mg PO Q12HR #10 tablet.er Aspirin [Durlaza] 162.5 mg PO BID #28 cap.er.24h Docusate [Colace] 100 mg PO BID #30 capsule Home Medications: Brimonidine Tartrate [Alphagan P] 1 drop OP BID 01/08/17 [History] Diphenoxylate/Atropine [Lomotil 2.5 mg/0.025 mg] 1 tab PO QID PRN 01/08/17 [ History] FLUoxetine HCl [Prozac] 20 mg PO DAILY 01/08/17 [History] Loratadine [Allergy Relief] 10 mg PO DAILY 01/08/17 [History] Morphine Sulfate SR (12 HR) [MS Contin] 60 mg PO Q12HR 01/08/17 [History] Ondansetron [Zofran] 8 mg PO Q4H PRN 01/08/17 [History] Omeprazole [PriLOSEC] 40 mg PO BID #60 cap 01/11/17 [Rx] Oxycodone HCl 10 mg PO Q4H PRN #25 tablet 01/11/17 [Rx] Calcium Carbonate [Calcium] 1,200 mg PO DAILY 03/15/17 [History] Ergocalciferol (VITAMIN D2) [Vitamin D2] 50,000 unit PO QWEEK 03/15/17 [History] Loperamide HCl [Imodium A-D] 2 mg PO TID PRN 03/15/17 [History] Aspirin [Durlaza] 162.5 mg PO BID #28 cap.er.24h 03/21/17 [Rx] Docusate [Colace] 100 mg PO BID #30 capsule 03/21/17 [Rx] Morphine Sulfate SR (12 HR) [MS Contin] 60 mg PO Q12HR #10 tablet.er 03/21/17 [ Rx] OxyCODONE Immed Rel [Roxicodone 5 MG] 5 mg PO Q4HR PRN #10 tablet 03/21/17 [Rx] Allergies/Adverse Reactions: 3 Allergy/AdvReac Type Severity Reaction Status Date / Time No Known Allergies Allergy Verified 11/08/14 17:42 Procedures/tests Complete & Pending: Procedures Performed prior 72 hours Category Date Time Status CT abd pelvis wo no iv no oral [CT] Stat Cat Scan 03/19/17 09:55 Completed Date of admission: 03/15/17 17:48 Primary care physician: PCP NONE Consults: 03/16/17 17:03 Consult to Nurse Navigator [CONS] Routine Comment: ortho navigator Consult to Occupational Therapy [CONS] Routine Comment: Evaluate, develop and implement POC Reason for Consult: total hip replacement Consult to Physical Therapy [CONS] Routine Comment: Evaluate, develop and implement POC Reason for Consult: total hip replacement Consult to Supervisor Plastering [CONS] Routine Reason for SW Consult: post op joint replacement RT Post Op Consult [CONS] Routine - Patient Status Disposition: Transfer SNF Condition: Fair - Discharge Instructions Follow Up With: Aida Pearson PAC [Physician Assembler Aircraft Power Plant] - 04/01/17 8:00 am Aida Meek PAC [Physician Assembler Aircraft Power Plant] - 03/25/17 3:15 pm Jorge Soto MD [Partnered Physician] - 04/12/17 9:35 am NONE,PCP [Primary Care Provider] - Barrington Phillip MD [Partnered Physician] - 03/28/17 10:30 am - Diet and Activity Activity: as per physical therapy Diet: diabetic diet Hospital course: Ms. Ibarra is a 76 year old female with past medical history arthritis, dementia , diabetes, GERD, hyperlipidemia, history of PE, osteoporosis and anxiety and depression. Patient presents to the ED with left hip pain. Patient stated about 2 days ago she fell in her kitchen. This seems to be a mechanical fall. She is not entirely sure as to how she sustained a fall. Patient stated she was awake the entire time. She stated her son-in-law was present at the time of fall. Patient did have a outpatient x-ray done which revealed a left femur fracture. Patient did follow up with orthopedics earlier in the day and was advised. She was seen by orthopedics while admitted under the hospitalist service and underwent a left hip hemiarthroplasty which was with no complications intraoperatively. Postoperatively we had to deal with low hemoglobin and low blood pressure. I did check an x-ray of the surgical site is red as well as a CT abdomen and pelvis with no acute bleed found. Her hemoglobin did drop to 6.8 from initial admission of 10.4. She did get transfused 1 unit of PRBCs with her hemoglobin coming back up to 8.2. I kept the patient in the hospital for another 24 hours to make sure that her hemoglobin stabilizes and on day of discharge she was up to 8.6. The patient while she was here continued to complain of pain on the left hip examination on the left side showed mild swelling however she was able to maneuver it and the therapy. She is being discharged to an extended care facility for further rehabilitation. Please note that the patient gets hospice services for advanced dementia per her daughter and those need to be resumed once she is at the extended care facility. - Time Spent with Patient Total time spent providing and/or coordinating discharge services: - Constitutional Vitals: Temp Pulse Resp BP Pulse Ox 98.5 F 87 16 104/68 96 03/21/17 07:00 03/21/17 07:00 03/21/17 07:00 03/21/17 07:00 03/21/17 07:00 General appearance: Present: cachectic, cooperative, A&O X 3, pleasant, no acute distress, answers questions appropriately Exam: GEN: NAD CVS: RRR. S1, S2, No m/r/g RESP: CTAB ABD: Soft, NT, ND,+BS EXT: No edema. Area of left hip with tenderness to palpation. some mild swelling noted. NEURO: Nonfocal - VTE Documentation of Mechanical Device: Venous foot pump, device
--- NOTE | 2017-03-21 08:55 | Physician Discharge Referral ---
- Diagnosis (1) Hip fracture, left Priority: Primary Status: Acute (2) Anemia Priority: Primary Status: Acute (3) Diabetes Priority: Secondary Status: Chronic Prognosis: Fair - Transfer Medications Prescriptions: OxyCODONE Immed Rel [Roxicodone 5 MG] 5 mg PO Q4HR PRN #10 tablet PRN Reason: Pain Morphine Sulfate SR (12 HR) [MS Contin] 60 mg PO Q12HR #10 tablet.er Aspirin [Durlaza] 162.5 mg PO BID #28 cap.er.24h Docusate [Colace] 100 mg PO BID #30 capsule Home Medications: Brimonidine Tartrate [Alphagan P] 1 drop OP BID 01/08/17 [History] Diphenoxylate/Atropine [Lomotil 2.5 mg/0.025 mg] 1 tab PO QID PRN 01/08/17 [ History] FLUoxetine HCl [Prozac] 20 mg PO DAILY 01/08/17 [History] Loratadine [Allergy Relief] 10 mg PO DAILY 01/08/17 [History] Morphine Sulfate SR (12 HR) [MS Contin] 60 mg PO Q12HR 01/08/17 [History] Ondansetron [Zofran] 8 mg PO Q4H PRN 01/08/17 [History] Omeprazole [PriLOSEC] 40 mg PO BID #60 cap 01/11/17 [Rx] Oxycodone HCl 10 mg PO Q4H PRN #25 tablet 01/11/17 [Rx] Calcium Carbonate [Calcium] 1,200 mg PO DAILY 03/15/17 [History] Ergocalciferol (VITAMIN D2) [Vitamin D2] 50,000 unit PO QWEEK 03/15/17 [History] Loperamide HCl [Imodium A-D] 2 mg PO TID PRN 03/15/17 [History] Aspirin [Durlaza] 162.5 mg PO BID #28 cap.er.24h 03/21/17 [Rx] Docusate [Colace] 100 mg PO BID #30 capsule 03/21/17 [Rx] Morphine Sulfate SR (12 HR) [MS Contin] 60 mg PO Q12HR #10 tablet.er 03/21/17 [ Rx] OxyCODONE Immed Rel [Roxicodone 5 MG] 5 mg PO Q4HR PRN #10 tablet 03/21/17 [Rx] Allergies/Adverse Reactions: 3 Allergy/AdvReac Type Severity Reaction Status Date / Time No Known Allergies Allergy Verified 11/08/14 17:42 - Respiratory Orders Smoking Cessation: Smoking cessation has been advised. For more information, call the [place] Tobacco Quit Line at 5-958-JAWI-NOW. - Rehabiliation Orders Rehab Potential: Fair Rehab Orders: Evaluation for Physical Therapy - Diet Orders Regular (diabetic diet) CERTIFICATION: I certify that the transfer of the above named patient to an Extended Care Facility is necessary for the continuing treatment of the diagnosis listed. The above information is true and accurate reflection of patient's current condition. Confidential - Redisclosure prohibited without a patient's written consent.
== END 2017-03-21 11:30 | DRG 470 ==
LOC: EMEROO 15:55 → 3NENU 17:48 → SUATTDRO 17:48 → 3NENU 18:23
PROVIDERS: ADMIT Hospitalist; ATTEND Internal Medicine

== ENCOUNTER 2018-09-12 12:14 | Inpatient (IN) ==
[2018-09-12] MEDS ORDERED: Naloxone 0.4 MG/ML INJ IVP PRN (14:43)
[2018-09-12] MEDS ORDERED: Methylnaltrexone 12 MG/0.6 ML SYRINGE SQ ONE (14:57)
[2018-09-12] MEDS ORDERED: cefTRIAXone 2,000 MG in Water for inj. (sterile) 20 ML 20 ML IVP SCH (15:00)
[2018-09-12] MEDS ORDERED: *HR* Dextrose 50 % in Water (Syg) 50 ML SYRINGE IVP PRN (15:11)
[2018-09-12] MEDS ORDERED: D5% in Water 1,000 ML IVC PRN (15:11)
[2018-09-12] MEDS ORDERED: Dextrose Gel 15 GM/37.5 ML TUBE PO PRN ×2 (15:11)
--- NOTE | 2018-09-12 15:16 | Internal Med History&Physical ---
Date of Encounter: 09/12/18 Time of Encounter: 15:13 Internal Medicine - H&P: HPI Chief complaint: AMS Admitted From: Emergency Dept Plans for Post Hospital Care: Home History of present illness: Ms. Ibarra is a 78 year old female with history of dementia, chronic pain, chronic Barton presents from [facility] emergency department due to altered mental status. Patient will open her eyes and nod yes and no but she will not respond verbally to questions. Most of the history is obtained from the medical record and from speaking to the daughter. The daughter states that over the weekend the patient was in her normal state of health and is normally very talkative and interactive. Yesterday she became more lethargic and less verbal and the daughter was concerned that the patient was developing an infection. Patient co ntinued to worsen and today the extended care facility transfer the patient to the emergency department. The patient's daughter states that she has had a chronic Barton for approximately 2 months and it was changed several days ago. Discussed with daughter who is the medical power of cork compounder and states that the patient has a DNR CCA order. Past Med Surg Social Fam HX - Past Medical History Medical history: arthritis, dementia, diabetes, GERD, hyperlipidemia, osteoporosis, pulmonary embolus Additional medical history: Pt from [facility] for rehab Psychiatric history: anxiety, depression - Past Surgical History Surgical History: appendectomy, cholecystectomy, colostomy, hysterectomy Additional surgical history: Colon resection with colostomy and colostomy reversal - Social History Smoking Status: Former smoker Smokeless Tobacco Status: No Alcohol use: none Drug use: none - Family History Mother Living Status: Hx Family Cardiac Disorders: Yes (arterial disease) Father Living Status: Hx Family Cancer: Yes (Leukemia) - Additional Family History Additional family history: Cannot confirm family history with the patient due to altered mental status. Internal Medicine - H&P: Meds Brimonidine Tartrate [Alphagan P] 1 drop BOTH EYES BID 01/08/17 [History] Diphenoxylate/Atropine [Lomotil 2.5 mg/0.025 mg] 1 tab PO QID PRN 01/08/17 [History] FLUoxetine HCl [Prozac] 20 mg PO DAILY 01/08/17 [History] Loratadine [Allergy Relief] 10 mg PO DAILY 01/08/17 [History] Calcium Carbonate [Calcium] 1,200 mg PO DAILY 12/05/17 [History] Ergocalciferol (VITAMIN D2) [Vitamin D2] 50,000 unit PO QWEEK 03/15/17 [History] Aspirin 162 mg PO BID 04/19/17 [History] Lidocaine Patch [Lidoderm 5% patch] 1 each TP DAILY 04/19/17 [History] Melatonin 5 mg PO HS 04/19/17 [History] Omeprazole [PriLOSEC] 20 mg PO DAILY 04/19/17 [History] Morphine Sulfate SR (12 HR) [MS Contin] 60 mg PO Q12HR #10 tablet.er 04/23/17 [Rx] Acetaminophen [Tylenol 650mg SUPP] 650 mg RC Q6H PRN 07/12/18 [History] Acetaminophen [Tylenol Arthritis] 650 mg PO Q6H PRN 07/12/18 [History] Bisacodyl [Dulcolax] 10 mg RC DAILY PRN 07/12/18 [History] Calcium Carbonate/Magnesium Ox [Oyster Shell Calcium-Magnes Tb] 2 each PO QID 07/12/18 [History] Celecoxib [Celebrex] 200 mg PO DAILY 07/12/18 [History] Estrogens, Conjugated [Premarin Cream] 1 appl VG DAILY PRN 07/12/18 [History] Fluconazole [Diflucan] 150 mg PO PRN PRN 07/12/18 [History] Hyoscyamine SL [Levsin Sl] 0.125 mg SL Q2H PRN 07/12/18 [History] Ipratropium/Albuterol Sulfate [Iprat-Albut 0.5-3(2.5) mg/3 ml] 3 ml IH Q4H 07/12/18 [History] Morphine Oral CONC [Roxanol] 5 mg PO Q4H PRN 07/12/18 [History] Nystatin Cream [Mycostatin Cream] 1 appl TP DAILY PRN 07/12/18 [History] Ondansetron HCl 8 mg PO Q4H PRN 07/12/18 [History] OxyCODONE Immed Rel [Roxicodone 10 MG] 10 mg PO Q4H PRN 07/12/18 [History] Promethazine [Phenergan] 25 mg RC Q6H PRN 07/12/18 [History] Allergy/AdvReac Type Severity Reaction Status Date / Time No Known Allergies Allergy Verified 07/12/18 13:52 ROS unobtainable: due to mental status (Patient is currently altered and cannot participate in review of systems) All Systems PM: A 10-system review of systems was performed and is negative for pertinent findings except as documented above in the HPI. - Constitutional Vitals: Temp Pulse Resp BP Pulse Ox 98.4 F 75 13 102/63 98 09/12/18 14:26 09/12/18 14:26 09/12/18 14:26 09/12/18 14:26 09/12/18 14:26 General appearance: Present: A&O X 0 Exam: Lethargic. Will only nod or shake her head to questions. - Head Head exam: Present: atraumatic, normal inspection - Eye Eye exam: Present: EOMI, PERRL - ENT ENT exam: Present: mucous membranes moist, normal oropharynx - Neck Neck exam general surgery: Present: full ROM. Absent: tenderness - Respiratory Respiratory exam: Present: CTAB. Absent: rales, rhonchi, wheezes - Cardiovascular Cardiovascular exam: Present: RRR. Absent: gallop, rubs, systolic murmur - GI/Abdominal GI/Abdominal exam: Present: hypoactive bowel sounds, mass (Sigmoid colon palpable), soft, tenderness (mild diffuse) - Extremities Exam Extremities exam: Present: warm. Absent: calf tenderness, pedal edema, tenderness - Neurological Exam Neurological exam: Present: alert, altered, CN II-XII intact, no focal deficits. Absent: oriented X3 - Psychiatric Psychiatric exam: Present: flat affect - Skin Skin exam: Present: dry, intact, warm - Assessment and Plan (1) Sepsis Current Visit: Yes Status: Acute Assessment and plan: Likely secondary to urinary tract infection. Patient presents with leukocytosis and altered mental status with a lactate elevated at 2.1. Patient has indwelling catheter, UA positive for leukocyte esterase and nitrates. Given Zosyn in the ED. We will start Rocephin 2 g daily as the patient does not have history of multidrug resistant organisms. Patient received adequate fluid hydration in the emergency department, repeat lactate pending. Unclear if the ER taiwo blood cultures, will check blood cultures now. Qualifiers: Sepsis type: sepsis due to unspecified organism Qualified Code(s): A41.9 - Sepsis, unspecified organism (2) Catheter-associated urinary tract infection Current Visit: Yes Status: Acute Assessment and plan: Patient has indwelling catheter and evidence of urinary tract infection with sepsis as discussed above. Present on admission. Will change catheter and recent UA and culture. Started on Rocephin 2 g daily. Qualifiers: Indwelling urinary catheter type: indwelling urethral catheter Encounter type: initial encounter Qualified Code(s): T83.511A - Infection and inflammatory reaction due to indwelling urethral catheter, initial encounter; N39.0 - Urinary tract infection, site not specified (3) Acute encephalopathy Current Visit: Yes Status: Acute Assessment and plan: Secondary to urinary tract infection as discussed above. Patient has underlying dementia but is acutely encephalopathic. CT of the head reviewed and is negative. Treat infection as above. (4) Acute kidney injury Current Visit: Yes Status: Acute Assessment and plan: Creatinine emergency department was 1.8, baseline appears to be normal. CT patient has bilateral hydronephrosis with displacement of the bladder secondary to colonic distention and fecal impaction. Plan to relieve fecal impaction as below as I feel like this is causing ureteral obstruction in her hydronephrosis. Once impaction is improved we will repeat CT to evaluate for other causes of hydronephrosis. Repeat UA pending. (5) Fecal impaction Current Visit: No Status: Acute Assessment and plan: Patient has history of chronic constipation and was noted to have dilated loops of bowel at discharge approximately [address] scan done in the ED reviewed and shows massive colonic dilatation with with an approximately 11cm dilated rectal vault full of impacted stool. Patient was manually disimpacted in the emergency department. Continue with Water enemas and we will give 1 dose of Relistor for opioid-induced constipation as patient is on chronic opioids at [facility] (6) Type 2 diabetes mellitus Current Visit: No Status: Chronic Assessment and plan: Previous A1c noted to be 6.3. Will institute low-dose sliding scale insulin. Continue monitor blood sugars and adjust as necessary. 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 Seems to be recovering well. (8) Severe dementia Current Visit: No Status: Chronic Assessment and plan: Patient has severe dementia baseline but she is different from her baseline mental status per the daughter's report. Likely due to UTI above. (9) Chronic heel ulcer Current Visit: No Status: Acute Assessment and plan: Present on admission. Qualifiers: Laterality: unspecified laterality Non-pressure ulcer stage: unspecified non-pressure ulcer stage Qualified Code(s): L97.409 - Non-pressure chronic ulcer of unspecified heel and midfoot with unspecified severity (10) DVT prophylaxis Current Visit: No Status: Acute Assessment and plan: Heparin 5000 units subcutaneous twice a day - Time Spent With Patient Total time spent is greater than 50% in coordination of care (as documented) at patient's floor/unit and/or counseling patient:
[2018-09-12 15:58] LABS: Hematocrit 31.9 % (35.3-44.9); Mean Corpuscular HGB Conc 31.3 g/dL (31.6-35.5); Mean Corpuscular Volume 89.4 fL (83.0-100.0); Mean Platelet Volume 8.6 fL (9.4-12.4); Platelet Count 337 K/mcL (140-400); Red Blood Count 3.57 M/mcL (3.82-4.97); White Blood Count 14.8 K/mcL (4.3-11.1)
[2018-09-12] MEDS ORDERED: Acetaminophen 650 MG RECTAL SUPP RC PRN (16:02)
[2018-09-12] MEDS ORDERED: *HR* OxyCODONE Immed Rel 5 MG TABLET PO PRN (16:02)
[2018-09-12 16:17] LABS: Calcium 8.6 mg/dL (8.6-10.3); Potassium 4.3 mEq/L (3.5-5.1)
[2018-09-12 16:27] LABS: Magnesium 2.5 mg/dL (1.6-2.6)
[2018-09-12] MEDS ORDERED: Insulin LISPRO 300 UNITS/3 ML VIAL SQ SCH ×2 (16:30→21:00)
[2018-09-12 16:44] LABS: Lymphocytes # 0.9 K/mcL (0.6-4.6); Monocytes # 0.3 K/mcL (0.0-1.3); Neutrophils # 13.3 K/mcL (1.6-8.9); Platelet Estimate Normal (Normal)
[2018-09-12] MEDS: *HR* Heparin 5,000 UNIT/ML VIAL SQ SCH (17:35)
[2018-09-12] MEDS ORDERED: 0.9 % Sodium Chloride 1,000 ML IVC SCH (21:15)
[2018-09-12] MEDS: *HR* Morphine Sulfate SR (12 HR) 60 MG TABLET.ER PO SCH (22:47)
[2018-09-12] MEDS: Sennosides/Docusate Sodium TABLET PO SCH (22:47)
[2018-09-13] MEDS: Insulin LISPRO 300 UNITS/3 ML VIAL SQ SCH ×5 (01:47→19:52)
[2018-09-13] MEDS: *HR* Heparin 5,000 UNIT/ML VIAL SQ SCH ×2 (05:45→18:32)
[2018-09-13 06:31] LABS: Acinetobacter baumannii by PCR Not Detected (Not Detect); Enterobacter cloacae Cmplx PCR Not Detected (Not Detect); Enterobacteriaceae by PCR DETECTED (Not Detect); Enterococcus by PCR Not Detected (Not Detect); Escherichia coli by PCR Not Detected (Not Detect); Klebsiella oxytoca by PCR Not Detected (Not Detect); Staphylococcus aureus by PCR Not Detected (Not Detect); Staphylococcus by PCR Not Detected (Not Detect); Streptococcus agalactiae(B)PCR Not Detected (Not Detect); Streptococcus by PCR Not Detected (Not Detect); Streptococcus pneumoniae PCR Not Detected (Not Detect); Streptococcus pyogenes (A) PCR Not Detected (Not Detect); blaKPC Carbapenem-Resist Gene Not Detected (Not Detect); mecA Methicillin-Resist Gene Not Detected (Not Detect); vanA/B Vancomycin-Resist Genes Not Detected (Not Detect)
[2018-09-13 06:32] LABS: Candida albicans by PCR Not Detected (Not Detect); Candida glabrata by PCR Not Detected (Not Detect); Candida krusei by PCR Not Detected (Not Detect); Candida parapsilosis by PCR Not Detected (Not Detect); Candida tropicalis by PCR Not Detected (Not Detect); Klebsiella pneumoniae by PCR DETECTED (Not Detect); Proteus by PCR Not Detected (Not Detect); Pseudomonas aeruginosa by PCR Not Detected (Not Detect); Serratia marcescens by PCR Not Detected (Not Detect)
[2018-09-13 07:29] LABS: Basophils % 0.1 %; Hematocrit 28.6 % (35.3-44.9); Hemoglobin 9.1 g/dL (11.5-15.4); Immature Granulocytes % 0.6 % (0-4); Lymphocytes # 0.4 K/mcL (0.6-4.6); Lymphocytes % 3.2 %; Mean Corpuscular HGB Conc 31.8 g/dL (31.6-35.5); Mean Corpuscular Hemoglobin 27.6 pg (28.0-33.3); Mean Corpuscular Volume 86.7 fL (83.0-100.0); Monocytes # 0.5 K/mcL (0.0-1.3); Monocytes % 4.4 %; Neutrophils # 10.1 K/mcL (1.6-8.9); Platelet Count 265 K/mcL (140-400); Red Cell Distribution Width 16.1 % (11.5-14.5); Segmented Neutrophils % 91.7 %
[2018-09-13] MEDS: *HR* Morphine Sulfate SR (12 HR) 60 MG TABLET.ER PO SCH (07:47)
[2018-09-13] MEDS: FLUoxetine 20 MG CAPSULE PO SCH (07:47)
[2018-09-13 07:48] LABS: Calcium 8.3 mg/dL (8.6-10.3); Magnesium 2.3 mg/dL (1.6-2.6); Potassium 3.8 mEq/L (3.5-5.1)
[2018-09-13] MEDS: Sennosides/Docusate Sodium TABLET PO SCH ×3 (07:48→20:58)
[2018-09-13] MEDS ORDERED: cefTRIAXone 2,000 MG in Water for inj. (sterile) 20 ML 20 ML IVP SCH (09:00)
--- NOTE | 2018-09-13 11:13 | Internal Med Progress Note ---
Hospitalist Progress Note - Encounter Date of Encounter: 09/13/18 Time of Encounter: 11:11 - Subjective Interval History: Patient seen and examined at bedside. Patient much more awake and alert than yesterday. She states she feels better. She states she is hungry. She reports mild abdominal pain. - Exam Vitals: Temp Pulse Resp BP Pulse Ox 98.3 F 88 16 124/62 99 09/13/18 07:15 09/13/18 07:15 09/13/18 07:15 09/13/18 07:15 09/13/18 07:41 Exam: Gen.: Alert and oriented 2, no acute distress Heart: Regular rate and rhythm, no murmurs, rubs, gallops Lungs: Bilaterally, no rales, rhonchi, wheezes Abdomen: Diffusely tender to palpation, fullness in the left lower quadrant. Hypoactive bowel sounds. - Assessment and Plan (1) Sepsis Current Visit: Yes Status: Acute Assessment and Plan: Secondary to UTI that resolved and bacteremia, likely due to Klebsiella as PCR is positive. White blood cell count down to 11 today, afebrile, lactate normalized. (2) Catheter-associated urinary tract infection Current Visit: Yes Status: Acute Assessment and Plan: Secondary to likely Klebsiella infection. Catheter has been changed. Infection overall improving. Continue Rocephin 2 g daily. (3) Acute encephalopathy Current Visit: Yes Status: Acute Assessment and Plan: Secondary to urinary tract infection. Much improved today. Patient is much more awake and alert and interactive today. (4) Acute kidney injury Current Visit: Yes Status: Acute Assessment and Plan: Improved today. Likely multifactorial setting of sepsis as well as hydronephrosis and hydroureter due to obstruction, likely secondary to severe colonic and rectal distention due to fecal impaction. Patient continues to have good urine output. Plan to relieve obstruction as discussed below and once better will check ultrasound to see that further obstruction is relieved. CT was repeated today that did show improvement in her colonic distention but still significant rectal fecal impaction. (5) Fecal impaction Current Visit: No Status: Acute Assessment and Plan: CT abdomen and pelvis obtained today shows much improvement in her colonic distention however there is still significant amount of stool in the rectal vault. Continue with soapsuds enemas as well as manual disimpaction and attempt to relieve the impaction. (6) Type 2 diabetes mellitus Current Visit: No Status: Chronic Assessment and Plan: Blood sugars under good control. Continue sliding scale insulin. (7) History of hemiarthroplasty of left hip Current Visit: No Status: Acute (8) Severe dementia Current Visit: No Status: Chronic (9) Chronic heel ulcer Current Visit: No Status: Acute (10) DVT prophylaxis Current Visit: No Status: Acute Assessment and Plan: Heparin 5000 units subcutaneous twice a day - Time Spent with Patient Total time spent is greater than 50% in coordination of care (as documented) at patient's floor/unit and/or counseling patient: Internal Medicine: Result - Labs CBC & Chem 7: 09/13/18 06:46 09/13/18 06:46 Labs: Short CBC 09/12/18 09/13/18 Range/Units 15:48 06:46 WBC 14.8 H 11.0 (4.3-11.1) K/mcL Hgb 10.0 L 9.1 L (11.5-15.4) g/dL Hct 31.9 L 28.6 L (35.3-44.9) % Plt Count 337 265 (140-400) K/mcL Neutrophils # 13.3 H 10.1 H (1.6-8.9) K/mcL BMP 09/12/18 09/13/18 15:48 06:46 Sodium 134 L 137 Potassium 4.3 3.8 Chloride 102 108 H Carbon Dioxide 25 21 L BUN 64 H 61 H Creatinine 1.54 H 1.22 H Glucose 244 H 136 H Calcium 8.6 8.3 L Consult Discharge Plan - Plan Referrals: Anand Morejon [Primary Care Provider] - (1) Sepsis Qualifiers: Sepsis type: sepsis due to unspecified organism Qualified Code(s): A41.9 - Sepsis, unspecified organism (2) Catheter-associated urinary tract infection Qualifiers: Indwelling urinary catheter type: indwelling urethral catheter Encounter type: initial encounter Qualified Code(s): T83.511A - Infection and inflammatory reaction due to indwelling urethral catheter, initial encounter; N39.0 - Urinary tract infection, site not specified (6) Type 2 diabetes mellitus Qualifiers: Diabetes mellitus shelter insulin use: with terminal clerk use Diabetes mellitus complication status: with unspecified complications Qualified Code(s): E11.8 - Type 2 diabetes mellitus with unspecified complications; 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
[2018-09-13] MEDS: Methylnaltrexone 12 MG/0.6 ML SYRINGE SQ SCH (16:42)
[2018-09-13] MEDS: *HR* Morphine Sulfate SR (12 HR) 15 MG TABLET.ER PO SCH (20:58)
[2018-09-13] MEDS: clonazePAM 0.5 MG TABLET PO PRN (21:47)
[2018-09-14 05:12] LABS: Basophils % 0.1 %; Eosinophils % 0.1 %; Hematocrit 30.1 % (35.3-44.9); Hemoglobin 9.9 g/dL (11.5-15.4); Immature Granulocytes % 0.3 % (0-4); Lymphocytes # 0.5 K/mcL (0.6-4.6); Lymphocytes % 5.5 %; Mean Corpuscular HGB Conc 32.9 g/dL (31.6-35.5); Mean Corpuscular Hemoglobin 27.8 pg (28.0-33.3); Mean Corpuscular Volume 84.6 fL (83.0-100.0); Mean Platelet Volume 8.5 fL (9.4-12.4); Monocytes # 0.4 K/mcL (0.0-1.3); Monocytes % 4.6 %; Neutrophils # 8.3 K/mcL (1.6-8.9); Platelet Count 249 K/mcL (140-400); Red Blood Count 3.56 M/mcL (3.82-4.97); Red Cell Distribution Width 15.9 % (11.5-14.5); Segmented Neutrophils % 89.4 %; White Blood Count 9.3 K/mcL (4.3-11.1)
[2018-09-14] MEDS: *HR* Heparin 5,000 UNIT/ML VIAL SQ SCH ×2 (05:21→17:16)
[2018-09-14 05:33] LABS: BUN/Creatinine Ratio 46 (6-26); Blood Urea Nitrogen 38 mg/dL (8-23); Calcium 8.6 mg/dL (8.6-10.3); Carbon Dioxide 23 mEq/L (23-29); Chloride 103 mEq/L (98-107); Glucose 149 mg/dL (70-105); Osmolality,Calculated 296 (280-300); Potassium 3.2 mEq/L (3.5-5.1); Sodium 137 mEq/L (136-145); eGFR For African Americans > 60 (> 60); eGFR For Non-African Americans > 60 (> 60)
[2018-09-14 05:50] LABS: Platelet Estimate Normal (Normal)
[2018-09-14] MEDS: Insulin LISPRO 300 UNITS/3 ML VIAL SQ SCH ×4 (06:58→20:06)
--- NOTE | 2018-09-14 08:17 | Internal Med Progress Note ---
Hospitalist Progress Note - Encounter Date of Encounter: 09/14/18 Time of Encounter: 08:13 - Subjective Interval History: Ms. Ibarra is a 78 year old female with history of dementia, chronic pain, chronic Granados presents from [facility] emergency department due to altered mental status. The daughter states that over the weekend the patient was in her normal state of health and is normally very talkative and interactive. Yesterday she became more lethargic and less verbal and the daughter was concerned that the patient was developing an infection. Patient continued to worsen and the extended care facility transfer the patient to the emergency department. The patient's daughter states that she has had a chronic Granados for approximately 2 months and it was changed several days ago. Patient was admitted for sepsis from UTI and severe constipation Patient is doing better, alert, oriented to 2, she said she is in the hospital because she is sick, denies chest pain and SOB, does have lower abdomen tenderness - Exam Vitals: Temp Pulse Resp BP Pulse Ox 98.2 F 76 18 168/73 100 09/14/18 06:45 09/14/18 06:45 09/14/18 06:45 09/14/18 06:45 09/14/18 06:45 Exam: CONSTITUTIONAL: patient appears as an age appropriate [Female ] in no acute distress. EYES Clear sclerae, bilateral pupils are equal, reactive to light. EMOI. RESPIRATORY: No accessory muscle use, bilateral reduced BS to auscultation, no wheezing, no crackles/rales. CARDIOVASCULAR: Regular heart rate, normal S1 and S2, no murmurs GASTROINTESTINAL: bowel sounds present, soft, superpelvic tenderness. MUSCULOSKELETAL: Joints in normal range of motion, no clubbing, no edema, no cyanosis. Bilateral peripheral pulses 2+. NEUROLOGIC: CN II to XII are grossly intact, no focal neurological deficit. DVT Prophylaxis: Heparin subcutaneous 5000 units every 12 hours - Summary of Assessment and Plan Summary of Assessment and Plan: This is a 78 years old female has history of chronic granados UTI dementia chronic pain on heavy dose morphine, from [facility] presenting altered mental status admitted for sepsis UTI, fecal impaction on 09/12. (1) Sepsis with Gran negative andrew bacteremia, will recheck blood culture, pending sensitivity, continue ceftriaxone sine patient clinically ins improving Current Visit: Yes Status: Acute Assessment and Plan: Secondary to UTI that resolved and bacteremia, likely due to Klebsiella as PCR is positive. White blood cell count down to 11 today, afebrile, lactate normalized. (2) Catheter-associated urinary tract infection Current Visit: Yes Status: Acute Assessment and Plan: Secondary to likely Klebsiella infection. Catheter has been changed. Infection overall improving. Continue Rocephin 2 g daily. (3) Acute metabolic encephalopathy from UTI, improving Current Visit: Yes Status: Acute Assessment and Plan: Secondary to urinary tract infection. Much improved today. Patient is much more awake and alert and interactive today. (4) Acute kidney injury resolved Current Visit: Yes Status: Acute Assessment and Plan: Improved today. Likely multifactorial setting of sepsis as well as hydronephrosis and hydroureter due to obstruction, likely secondary to severe colonic and rectal distention due to fecal impaction. Patient continues to have good urine output. (5) Fecal impaction from chronic hygh dose opaite, she was on MS morphine 60 mg TID, we will taper morphine long acting down to 30 mg today Current Visit: No Status: Acute Assessment and Plan: discussed with nurse, per report, herlinda has 2 large BM, will chekc KUB daily to ensure fecal impaction resolves (6) Type 2 diabetes mellitus Current Visit: No Status: Chronic Assessment and Plan: Blood sugars under good control. Continue sliding scale insulin. (7) History of hemiarthroplasty of left hip Current Visit: No Status: Acute (8) Severe dementia Current Visit: No Status: Chronic (9) Chronic heel ulcer Current Visit: No Status: Acute (10) B/L hydronephrosis from CT scan, after fecal impaction resolved, will repeat CT scan to make sure if Hydronephrosis improves (11)hypokalemia, will replace (12)chronic pain, will wean off Ms morphine due to fecal impaction, only use prn morphine, patient looks comfortable DVT prophylaxis Current Visit: No Status: Acute Assessment and Plan: Heparin 5000 units subcutaneous twice a day - Time Spent with Patient Total time spent is greater than 50% in coordination of care (as documented) at patient's floor/unit and/or counseling patient: 25 - 35 minutes Plan of Care Discussed with: patient Internal Medicine: Result - Labs CBC & Chem 7: 09/14/18 04:44 09/14/18 04:44 Labs: Short CBC 09/14/18 Range/Units 04:44 WBC 9.3 (4.3-11.1) K/mcL Hgb 9.9 L (11.5-15.4) g/dL Hct 30.1 L (35.3-44.9) % Plt Count 249 (140-400) K/mcL Neutrophils # 8.3 (1.6-8.9) K/mcL BMP 09/14/18 04:44 Sodium 137 Potassium 3.2 L Chloride 103 Carbon Dioxide 23 BUN 38 H Creatinine 0.82 Glucose 149 H Calcium 8.6 - Impressions Impressions Abdomen/Pelvis CT 09/13/18 08:21 IMPRESSION: 1. A large amount of stool remains within the rectum, although the stool burden is decreased in comparison to the exam from 09/12/2018. Diffuse irregular rectal wall thickening is present, which could be related to stercoral colitis. 2. Stable bilateral hydronephrosis which is moderate to severe on the right and mild on the left. A small amount of layering hyperdensity in the left renal pelvis could represent small stones or retained contrast. The right ureter is distended to its distal portion, but the left ureter is decompressed. The etiology of the hydronephrosis is unclear. D/ / 09/13/2018 11:22:20 Clive Mendieta MD / shikha Interpreting Provider: Clive Mendieta MD Consult Discharge Plan - Plan Referrals: Anand Morejon [Primary Care Provider] -
--- NOTE | 2018-09-14 09:28 | Urology - Consult Note ---
Date of Encounter: 09/14/18 Time of Encounter: 09:00 - Assessment and Plan (1) Hydronephrosis Current Visit: Yes Status: Acute Assessment and plan: Patient is 78-year-old female who presents with bilateral hydronephrosis, right greater than left. Hydronephrosis initially evaluated on CT from 09/12/2018 and redemonstrated 09/13/2018. CT from March 2017 was negative. Patient has indwelling Barton catheter, and it is unclear as to if this may have been placed for postoperative retention since patient recently underwent left hip surgery. Dr. Cooley will review CT images and evaluate patient. I do not anticipate any urgent urologic surgical intervention as patient's renal function is reassuring with GFR greater than 60. For now, we will continue with indwelling Barton catheter and treat infection with IV antibiotics. Qualifiers: Hydronephrosis type: unspecified Qualified Code(s): N13.30 - Unspecified hydronephrosis (2) Catheter-associated urinary tract infection Current Visit: Yes Status: Acute Assessment and plan: Patient is a 78-year-old female who presents with preliminary blood and urine cultures positive for gram-negative rods. Final culture and sensitivity reports are pending. Vital signs are stable and afebrile. White blood cell count and renal function are reassuring. Patient is receiving IV meropenem. Qualifiers: Indwelling urinary catheter type: indwelling urethral catheter Encounter type: initial encounter Qualified Code(s): T83.511A - Infection and inflammatory reaction due to indwelling urethral catheter, initial encounter; N39.0 - Urinary tract infection, site not specified Urology CN:HPI Consult date: 09/14/18 Reason for consult Urology: Hydronephrosis Requesting physician: Saige Miramontes History of present illness: Patient is a 78-year-old female who presents with bilateral hydronephrosis, right greater than left, indwelling Barton catheter and urosepsis. Patient was initially transferred from her extended care facility to the emergency department for altered mental status. Patient suffers from baseline dementia, b ut she is reported to be quite lucid at baseline. Patient has chronic indwelling Barton catheter that was recently changed per IM physician documentation. Patient recently admitted in July 2018 for left hip fracture and underwent left femur ORIF by Dr. Soto. On my examination, patient is sitting upright in bed with Barton catheter indwelling and draining transparent, clear yellow urine. Patient is unable to answer pointed questions, and she does not recall any of her past medical history. Patient is unsure as to why Barton catheter was placed underwent initial catheter was placed. Patient was previously established with Dr. Ennis upon reviewing [facility] records, but she has not been seen since 2015. At that time, patient was being treated for recurrent urinary tract infections and fecal incontinence, but she did not have an indwelling Barton catheter at that time. Patient underwent CT of the abdomen and pelvis revealing moderate to severe right-sided hydronephrosis and mild left hy dronephrosis without obvious obstruction. Patient's family history and social history unable to be obtained secondary to mental status. Past Med Surg Social Fam HX - Past Medical History Medical history: arthritis, dementia, diabetes, GERD, hyperlipidemia, osteoporosis, pulmonary embolus Additional medical history: Pt from [facility] for rehab Psychiatric history: anxiety, depression - Past Surgical History Surgical History: appendectomy, cholecystectomy, colostomy, hysterectomy Additional surgical history: Colon resection with colostomy and colostomy reversal - Social History Smoking Status: Former smoker Smokeless Tobacco Status: No Alcohol use: none Drug use: none - Family History Mother Living Status: Hx Family Cardiac Disorders: Yes (arterial disease) Father Living Status: Hx Family Cancer: Yes (Leukemia) Medications and Allergies Brimonidine Tartrate [Alphagan P] 1 drop BOTH EYES 799,199901/08/17 [History] Diphenoxylate/Atropine [Lomotil 2.5 mg/0.025 mg] 1 tab PO QID PRN 01/08/17 [ History] FLUoxetine HCl [Prozac] [place] [address]/08/17 [History] Loratadine [Allergy Relief] 10 mg PO DAILY 01/08/17 [History] Calcium Carbonate [Calcium] 1,200 mg PO 0803/15/17 [History] Ergocalciferol (VITAMIN D2) [Vitamin D2] 50,000 unit PO MO 03/15/17 [History] Aspirin 162 mg PO 0800,1700 04/19/17 [History] Lidocaine Patch [Lidoderm 5% patch] 1 each TP DAILY 04/19/17 [History] Melatonin 5 mg PO 199904/19/17 [History] Omeprazole [PriLOSEC] 20 mg PO 0600 04/19/17 [History] Acetaminophen [Tylenol 650mg SUPP] 650 mg RC Q6H PRN 07/12/18 [History] Acetaminophen [Tylenol Arthritis] 650 mg PO Q6H PRN 07/12/18 [History] Bisacodyl [Dulcolax] 10 mg RC DAILY PRN 07/12/18 [History] Calcium Carbonate/Magnesium Ox [Oyster Shell Calcium-Magnes Tb] 2 each PO 0800,1200,1600,199907/12/18 [History] Estrogens, Conjugated [Premarin Cream] 1 appl VG DAILY PRN 07/12/18 [History] Fluconazole [Diflucan] 150 mg PO PRN PRN 07/12/18 [History] Hyoscyamine SL [Levsin Sl] 0.125 mg SL Q2H PRN 07/12/18 [History] Ipratropium/Albuterol Sulfate [Iprat-Albut 0.5-3(2.5) mg/3 ml] 3 ml IH Q4H PRN 07/12/18 [History] Morphine Oral CONC [Roxanol] 5 mg PO Q4H PRN 07/12/18 [History] Nystatin Cream [Mycostatin Cream] 1 appl TP DAILY PRN 07/12/18 [History] Ondansetron HCl 8 mg PO Q4H PRN 07/12/18 [History] Promethazine [Phenergan] 25 mg RC Q6H PRN 07/12/18 [History] Ferrous Sulfate [Iron] 325 mg PO 0800,1700 09/12/18 [History] LORazepam [Ativan] 0.5 mg PO Q4HR PRN 09/12/18 [History] Meloxicam [Mobic] 7.5 mg PO 0800 09/12/18 [History] Metoprolol Succinate [Toprol Xl] 12.5 mg PO 0800 09/12/18 [History] Morphine Sulfate SR (12 HR) [MS Contin] 60 mg PO 0800,199909/12/18 [History] OxyCODONE Immed Rel [Roxicodone 5 MG] 5 mg PO Q4HR PRN 09/12/18 [History] clonazePAM [Clonazepam] 0.25 mg PO BID PRN 09/12/18 [History] Allergy/AdvReac Type Severity Reaction Status Date / Time No Known Allergies Allergy Verified 09/12/18 15:17 Review of Systems ROS unobtainable: due to mental status Exam Initial Vital Signs Temp Pulse Resp BP Pulse Ox 98.4 F 75 13 102/63 98 09/12/18 14:26 09/12/18 14:26 09/12/18 14:26 09/12/18 14:26 09/12/18 14:26 - General physical appearance Present: no distress, no pain - Eyes Present: PERRL, normal ocular movement - ENT Present: no congestion, decreased hearing - Neck Present: no masses, trachea midline, no lymphadenopathy - Respiratory Present: normal respiratory effort - Cardiovascular Cardiovascular exam IM: RRR - Abdomen Abdomen: Present: soft. Absent: distended - Genitourinary Present: other (Barton catheter indwelling and draining transparent, clear yellow urine into bedside bag) - Integumentary Present: no rash, no abnormal pigmentation - Neurologic Present: disoriented, confused - Musculoskeletal Present: other (normal posture ) Urology Results - Labs 09/14/18 04:44 09/14/18 04:44 Abnormal lab results WBC 14.8 K/mcL (4.3-11.1) H 09/12/18 15:48 RBC 3.56 M/mcL (3.82-4.97) L 09/14/18 04:44 Hgb 9.9 g/dL (11.5-15.4) L 09/14/18 04:44 Hct 30.1 % (35.3-44.9) L 09/14/18 04:44 MCH 27.8 pg (28.0-33.3) L 09/14/18 04:44 MCHC 31.3 g/dL (31.6-35.5) L 09/12/18 15:48 RDW 15.9 % (11.5-14.5) H 09/14/18 04:44 MPV 8.5 fL (9.4-12.4) L 09/14/18 04:44 2.0 % (0) H 09/12/18 15:48 10.1 K/mcL (1.6-8.9) H 09/13/18 06:46 0.5 K/mcL (0.6-4.6) L 09/14/18 04:44 Sodium 134 mEq/L (136-145) L 09/12/18 15:48 Potassium 3.2 mEq/L (3.5-5.1) L 09/14/18 04:44 Chloride 108 mEq/L (98-107) H 09/13/18 06:46 Carbon Dioxide 21 mEq/L (23-29) L 09/13/18 06:46 BUN 38 mg/dL (8-23) H 09/14/18 04:44 1.22 mg/dL (0.60-1.20) H 09/13/18 06:46 Est GFR ( Amer) 52 (> 60) L 09/13/18 06:46 Est GFR (Non-Af Amer) 43 (> 60) L 09/13/18 06:46 46 (6-26) H 09/14/18 04:44 Glucose 149 mg/dL (70-105) H 09/14/18 04:44 POC Glucose 138 mg/dL (70-99) H 09/14/18 06:48 303 (280-300) H 09/13/18 06:46 Calcium 8.3 mg/dL (8.6-10.3) L 09/13/18 06:46 Enterobacteriac sp PCR DETECTED (Not Detect) A 09/12/18 15:48 Klebsiella pneumoniae DETECTED (Not Detect) A 09/12/18 15:48 Diabetes panel 09/14/18 Range/Units 04:44 Sodium 137 (136-145) mEq/L Potassium 3.2 L (3.5-5.1) mEq/L Chloride 103 (98-107) mEq/L Carbon Dioxide 23 (23-29) mEq/L BUN 38 H (8-23) mg/dL Creatinine 0.82 (0.60-1.20) mg/dL Glucose 149 H (70-105) mg/dL Calcium 8.6 (8.6-10.3) mg/dL Calcium panel 09/14/18 Range/Units 04:44 Calcium 8.6 (8.6-10.3) mg/dL Pituitary panel 09/14/18 Range/Units 04:44 Sodium 137 (136-145) mEq/L Potassium 3.2 L (3.5-5.1) mEq/L Chloride 103 (98-107) mEq/L Carbon Dioxide 23 (23-29) mEq/L BUN 38 H (8-23) mg/dL Creatinine 0.82 (0.60-1.20) mg/dL Glucose 149 H (70-105) mg/dL Calcium 8.6 (8.6-10.3) mg/dL Adrenal panel 09/14/18 Range/Units 04:44 Sodium 137 (136-145) mEq/L Potassium 3.2 L (3.5-5.1) mEq/L Chloride 103 (98-107) mEq/L Carbon Dioxide 23 (23-29) mEq/L BUN 38 H (8-23) mg/dL Creatinine 0.82 (0.60-1.20) mg/dL Glucose 149 H (70-105) mg/dL Calcium 8.6 (8.6-10.3) mg/dL All other labs normal. - Imaging CT scan - abdomen: report reviewed, image reviewed CT scan - pelvis: report reviewed, image reviewed Consult Discharge Plan - Plan Referrals: Anand Morejon [Primary Care Provider] -
[2018-09-14] MEDS: Sennosides/Docusate Sodium TABLET PO SCH ×2 (09:46→20:11)
[2018-09-14] MEDS: FLUoxetine 20 MG CAPSULE PO SCH (09:46)
[2018-09-14] MEDS: *HR* Morphine Sulfate SR (12 HR) 15 MG TABLET.ER PO SCH ×3 (09:46→20:11)
[2018-09-14 10:24] LABS: Bilirubin,Urine Negative (Negative); Blood,Urine Large (Negative); Clarity,Urine Turbid (Clear); Color,Urine Yellow (Yellow); Glucose,Urine (UA) Normal (Normal); Ketones,Urine Trace mg/dL (Negative); Leukocyte Esterase,Urine Large (Negative); Nitrite,Urine Negative (Negative); PH,Urine 6.5 pH Units (5.0-8.0); Protein,Urine 100 mg/dL (Neg-Trace); Specific Gravity,Urine 1.011 (1.010-1.025); Urobilinogen,Urine Normal (Normal)
[2018-09-14 10:26] LABS: Bacteria,Urine None Seen per hpf (None-Few); Hyaline Casts,Urine Few per lpf (None-Few); RBC,Urine TNTC per hpf (0-3); Squamous Epithelial Cell,Urine Many per lpf (None-Few); WBC,Urine TNTC per hpf (0-3)
[2018-09-14] MEDS: Cefepime HCl 2,000 MG in Water for inj. (sterile) 20 ML 20 ML IVP SCH ×2 (14:41→20:12)
[2018-09-14] MEDS ORDERED: Meropenem 1,000 MG in 0.9 % Sodium Chloride Mini Bag 100 ML IVPB SCH (16:00)
[2018-09-14] MEDS: Methylnaltrexone 12 MG/0.6 ML SYRINGE SQ SCH (16:28)
[2018-09-14] MEDS: *HR* Morphine Soln 10 MG/5 ML UDC PO PRN (17:21)
[2018-09-15] MEDS: Cefepime HCl 2,000 MG in Water for inj. (sterile) 20 ML 20 ML IVP SCH (05:01)
[2018-09-15] MEDS: *HR* Heparin 5,000 UNIT/ML VIAL SQ SCH ×2 (05:01→16:42)
[2018-09-15] MEDS: Insulin LISPRO 300 UNITS/3 ML VIAL SQ SCH ×4 (08:25→19:59)
[2018-09-15] MEDS: *HR* Morphine Sulfate SR (12 HR) 15 MG TABLET.ER PO SCH ×2 (08:25→20:05)
[2018-09-15] MEDS: FLUoxetine 20 MG CAPSULE PO SCH (08:25)
[2018-09-15] MEDS: Sennosides/Docusate Sodium TABLET PO SCH ×2 (08:25→20:05)
--- NOTE | 2018-09-15 08:32 | Urology Progress Note ---
Date of Encounter: 09/15/18 Time of Encounter: 07:50 - Assessment and Plan (1) Hydronephrosis Current Visit: Yes Status: Acute Assessment and plan: Patient is a 78-year-old female who presents with bilateral hydronephrosis. Barton catheter is indwelling and draining sufficiently. Plan to keep indwelling Barton catheter throughout hospital stay. Renal function remains stable and reassuring. Qualifiers: Hydronephrosis type: unspecified Qualified Code(s): N13.30 - Unspecified hydronephrosis (2) Catheter-associated urinary tract infection Current Visit: Yes Status: Acute Assessment and plan: Patient is a 78-year-old female who presents with a urinary tract infection. P ulmonary blood cultures from 09/12/2018 are positive for Proteus and Klebsiella. Patient is receiving IV meropenem which is culture sensitive for both strains. Final urine culture and sensitivity report is pending. Plan to continue with IV antibiotics during inpatient stay and transition to culture sensitive oral antibiotic for a 10-14 day course. Qualifiers: Indwelling urinary catheter type: indwelling urethral catheter Encounter type: initial encounter Qualified Code(s): T83.511A - Infection and inflammatory reaction due to indwelling urethral catheter, initial encounter; N39.0 - Urinary tract infection, site not specified Progress Note Subjective: no new complaints Narrative: Patient seen and examined sitting upright in bed in no apparent distress. Barton catheter indwelling and draining transparent, clear, yellow urine into bedside bag. Objective Initial Vital Signs Temp Pulse Resp BP Pulse Ox 98.4 F 75 13 102/63 98 09/12/18 14:26 09/12/18 14:26 09/12/18 14:26 09/12/18 14:26 09/12/18 14:26 - General physical appearance Present: no distress, no pain - Respiratory Present: normal expansion, normal respiratory effort - Abdomen Present: soft. Absent: distended - Genitourinary Urine Appearance: Present: Clear - Integumentary Present: no rash, no abnormal pigmentation - Musculoskeletal Present: normal posture - Psychiatric Absent: oriented to time, oriented to person, oriented to place, speech is normal, memory intact - Labs 09/14/18 04:44 09/14/18 04:44 Consult Discharge Plan - Plan Referrals: Anand Morejon [Primary Care Provider] -
[2018-09-15 09:09] LABS: Basophils % 0.1 %; Eosinophils % 0.1 %; Hemoglobin 10.9 g/dL (11.5-15.4); Immature Granulocytes % 0.8 % (0-4); Lymphocytes # 0.6 K/mcL (0.6-4.6); Lymphocytes % 3.2 %; Mean Corpuscular HGB Conc 32.1 g/dL (31.6-35.5); Mean Corpuscular Hemoglobin 27.2 pg (28.0-33.3); Mean Corpuscular Volume 84.8 fL (83.0-100.0); Mean Platelet Volume 8.9 fL (9.4-12.4); Monocytes # 0.6 K/mcL (0.0-1.3); Monocytes % 3.1 %; Neutrophils # 16.3 K/mcL (1.6-8.9); Platelet Count 280 K/mcL (140-400); Red Blood Count 4.01 M/mcL (3.82-4.97); Segmented Neutrophils % 92.7 %
[2018-09-15 09:11] LABS: White Blood Count 17.6 K/mcL (4.3-11.1)
[2018-09-15 09:41] LABS: BUN/Creatinine Ratio 39 (6-26); Blood Urea Nitrogen 27 mg/dL (8-23); Calcium 8.4 mg/dL (8.6-10.3); Carbon Dioxide 17 mEq/L (23-29); Chloride 98 mEq/L (98-107); Glucose 236 mg/dL (70-105); Magnesium 1.8 mg/dL (1.6-2.6); Osmolality,Calculated 279 (280-300); Potassium 3.9 mEq/L (3.5-5.1); Sodium 128 mEq/L (136-145); eGFR For African Americans > 60 (> 60); eGFR For Non-African Americans > 60 (> 60)
[2018-09-15] MEDS ORDERED: Piperacillin/Tazobactam 3.375 GM in 0.9 % Sodium Chloride Mini Bag 100 ML IVPB ONE (09:59)
[2018-09-15] MEDS ORDERED: Piperacillin/Tazobactam 3.375 GM in 0.9 % Sodium Chloride Mini Bag 100 ML IVPB SCH (09:59)
--- NOTE | 2018-09-15 11:50 | Internal Med Progress Note ---
Hospitalist Progress Note - Encounter Date of Encounter: 09/15/18 Time of Encounter: 11:39 - Subjective Interval History: Patient is doing ok, laert and comfortable, still has abdominal tenderness, KUB reviwed, zac impaction resolved, but patient is unalbe to move her BM, due to weakness, bedbound, she will need daily enema to help her BM - Exam Vitals: Temp Pulse Resp BP Pulse Ox 97.8 F 117 16 121/84 99 09/15/18 10:58 09/15/18 10:58 09/15/18 10:58 09/15/18 10:58 09/15/18 10:58 Exam: CONSTITUTIONAL: patient appears as an age appropriate [Female ] in no acute distress. EYES Clear sclerae, bilateral pupils are equal, reactive to light. EMOI. RESPIRATORY: No accessory muscle use, bilateral reduced BS to auscultation, no wheezing, no crackles/rales. CARDIOVASCULAR: Regular heart rate, normal S1 and S2, no murmurs GASTROINTESTINAL: bowel sounds present, soft, superpelvic tenderness. MUSCULOSKELETAL: Joints in normal range of motion, no clubbing, no edema, no cyanosis. Bilateral peripheral pulses 2+. NEUROLOGIC: CN II to XII are grossly intact, no focal neurological deficit. DVT Prophylaxis: Heparin subcutaneous 5000 units every 12 hours - Summary of Assessment and Plan Summary of Assessment and Plan: This is a 78 years old female has history of chronic granados UTI dementia chronic pain on heavy dose morphine, from [facility] presenting altered mental status admitted for sepsis UTI, fecal impaction on 09/12. (1) Sepsis with Gran negative andrew bacteremia with Proteus and klebsiella pneumonia, disucssed with pharmacist, JARETH lchanged to cristi today, will consult ID, her WBC is worse today Current Visit: Yes Status: Acute Assessment and Plan: Secondary to UTI that resolved and bacteremia, likely due to Klebsiella as PCR is positive. White blood cell count down to 11 today, afebrile, lactate normalized. (2) Catheter-associated urinary tract infection UC growing Proteus, ATB changed to santisyn Current Visit: Yes Status: Acute Assessment and Plan: Secondary to likely Klebsiella infection. Catheter has been changed. Infection overall improving. (3) Acute metabolic encephalopathy from UTI, improving Current Visit: Yes Status: Acute Assessment and Plan: Secondary to urinary tract infection. Much improved today. Patient is much more awake and alert and interactive today. (4) Acute kidney injury resolved Current Visit: Yes Status: Acute Assessment and Plan: Improved today. Likely multifactorial setting of sepsis as well as hydronephrosis and hydroureter due to obstruction, likely secondary to severe colonic and rectal distention due to fecal impaction. Patient continues to have good urine output. (5) Fecal impaction from chronic high dose opaite, she was on MS morphine 60 mg TID, reduced morphine long acting down to 30 mg Current Visit: No Status: Acute Assessment and Plan: Patient will need daily enema to help her BM at discharge, contineu colace senna (6) Type 2 diabetes mellitus Current Visit: No Status: Chronic Assessment and Plan: Blood sugars under good control. Continue sliding scale insulin. (7) History of hemiarthroplasty of left hip Current Visit: No Status: Acute (8) Severe dementia Current Visit: No Status: Chronic (9) Chronic heel ulcer Current Visit: No Status: Acute (10) B/L hydronephrosis from CT scan, after fecal impaction resolved, will repeat CT scan to make sure if Hydronephrosis improves in 1-2 days, appreciate urology consult (11)hypokalemia, replaced (12)chronic pain, will wean off Ms morphine due to fecal impaction, only use prn morphine, patient looks comfortable DVT prophylaxis Current Visit: No Status: Acute Assessment and Plan: Heparin 5000 units subcutaneous twice a day - Time Spent with Patient Total time spent is greater than 50% in coordination of care (as documented) at patient's floor/unit and/or counseling patient: Greater than 35 minutes Internal Medicine: Result - Labs CBC & Chem 7: 09/15/18 08:41 09/15/18 08:41 Labs: Short CBC 09/15/18 Range/Units 08:41 WBC 17.6 H D (4.3-11.1) K/mcL Hgb 10.9 L (11.5-15.4) g/dL Hct 34.0 L (35.3-44.9) % Plt Count 280 (140-400) K/mcL Neutrophils # 16.3 H (1.6-8.9) K/mcL BMP 09/15/18 08:41 Sodium 128 L Potassium 3.9 Chloride 98 Carbon Dioxide 17 L BUN 27 H Creatinine 0.69 Glucose 236 H Calcium 8.4 L - Impressions Impressions Abdomen/Pelvis CT 09/13/18 08:21 IMPRESSION: 1. A large amount of stool remains within the rectum, although the stool burden is decreased in comparison to the exam from 09/12/2018. Diffuse irregular rectal wall thickening is present, which could be related to stercoral colitis. 2. Stable bilateral hydronephrosis which is moderate to severe on the right and mild on the left. A small amount of layering hyperdensity in the left renal pelvis could represent small stones or retained contrast. The right ureter is distended to its distal portion, but the left ureter is decompressed. The etiology of the hydronephrosis is unclear. D/ / 09/13/2018 11:22:20 Clive Mendieta MD / shikha Interpreting Provider: Clive Mendieta MD X-Ray 09/14/18 12:49 IMPRESSION: Moderate stool burden in the rectum, decreased from prior CT. D/ / Edilberto Banda MD / Edilberto Banda MD Interpreting Provider: Edilberto Banda MD Consult Discharge Plan - Plan Referrals: Anand Morejon [Primary Care Provider] -
--- NOTE | 2018-09-15 15:44 | Infectious Disease Consult ---
Infectious Disease-Consult - Encounter Date/Time Date of Encounter: 09/15/18 Time of Encounter: 15:39 - Data of Consult Patient: new to practice Reason for consult: bacteremia Consult date: 09/15/18 Requesting Physician: Saige Miramontes MD Primary Care Provider: Anand Morejon - HPI HPI: Patient is a 78-year-old woman who presented to [facility] on 09/12/2018 with altered mental status. We are consulted on 09/15/2018 with bacteremia secondary to gram-negative andrew. Most of the information was taken from medical records. Patient answers questions but she has poor articulation of the words and I really could not understand what she was saying.. Patient apparently symptoms 8-year-old woman with extensive past medical history including dementia, chronic pain, chronic Barton presented to [facility] department with altered mental status. Per records patient was opening her eyes and nodding yes and no to questions. Patient's clinical picture apparently deteriorated look this over a few days prior to admission. Since admission patient has been febrile MAXIMUM TEMPERATURE 100.3, tachycardia without tachypnea. Presenting labs revealed a WBC of 14.8 with 88% neutrophils and 2% bands. Patient also had a BUN of 64, creatinine 1.54 and lactic acid of 1.1. Blood cultures 2 out of 2 sets were positive for Klebsiella pneumoniae and Proteus mirabilis. Urine culture was positive for Proteus mirabilis from the urine. Repeat cultures on September 13 and September 14 are also positive for Proteus mirabilis. Patient had a CT abdomen pelvis which was read as a large amount of food remaining within the rectum and diffuse irregular rectal wall thickening is present which could be related to start choral colitis. Patient also still bilateral hydronephrosis. Patient is currently on Zosyn. We were asked to eval uate the patient. Further recommendations. Patient currently laying in bed appears comfortable. No acute distress. On physical exam she has significant pain in the abdomen and it was diffuse in all 4 quadrants with some guarding. - ROS Review of Systems: 10 point review of systems done, negative other for what is mentioned in history of present illness - Results CBC & Chem 7: 09/15/18 08:41 09/15/18 08:41 - Exam Vitals: Temp Pulse Resp BP Pulse Ox 97.8 F 117 16 121/84 99 09/15/18 10:58 09/15/18 10:58 09/15/18 10:58 09/15/18 10:58 09/15/18 10:58 Exam: GENERAL: Laying in bed, appears comfortable. Cachectic HEAD: Normocephalic atraumatic EYES: PERRLA, EOMI, no conjunctival hemorrhage, sclera anicteric ENT: Mucous membranes dry. No oral lesions. Patient has no teeth NECK: Supple. No meningeal signs. No masses LUNGS: Chest expanding symmetrically. Lungs sounds audible both lung gutierrez. No wheezing, no rhonchi CV: RRR, S1S2, ABDOMEN: Firm, tender in all 4 quadrants, no rebound no guarding no Thurston sign EXTREMITY: Adequate perfusion. No joint effusion. SKIN: Normal color. No rash. NEURO: Awake alert oriented 2. No obvious focal deficit PSYCH: Calm and appropriate. No agitation. Brimonidine Tartrate [Alphagan P] 1 drop BOTH EYES 0800,199901/08/17 [History] Diphenoxylate/Atropine [Lomotil 2.5 mg/0.025 mg] 1 tab PO QID PRN 01/08/17 [History] FLUoxetine HCl [Prozac] 20 mg PO 0800 01/08/17 [History] Loratadine [Allergy Relief] 10 mg PO DAILY 01/08/17 [History] Calcium Carbonate [Calcium] 1,200 mg PO 0800 03/15/17 [History] Ergocalciferol (VITAMIN D2) [Vitamin D2] 50,000 unit PO MO 03/15/17 [History] Aspirin 162 mg PO 0800,1700 04/19/17 [History] Lidocaine Patch [Lidoderm 5% patch] 1 each TP DAILY 04/19/17 [History] Melatonin 5 mg PO 199904/19/17 [History] Omeprazole [PriLOSEC] 20 mg PO 0600 04/19/17 [History] Acetaminophen [Tylenol 650mg SUPP] 650 mg RC Q6H PRN 07/12/18 [History] Acetaminophen [Tylenol Arthritis] 650 mg PO Q6H PRN 07/12/18 [History] Bisacodyl [Dulcolax] 10 mg RC DAILY PRN 07/12/18 [History] Calcium Carbonate/Magnesium Ox [Oyster Shell Calcium-Magnes Tb] 2 each PO 0800,1200,1600,199907/12/18 [History] Estrogens, Conjugated [Premarin Cream] 1 appl VG DAILY PRN 07/12/18 [History] Fluconazole [Diflucan] 150 mg PO PRN PRN 07/12/18 [History] Hyoscyamine SL [Levsin Sl] 0.125 mg SL Q2H PRN 07/12/18 [History] Ipratropium/Albuterol Sulfate [Iprat-Albut 0.5-3(2.5) mg/3 ml] 3 ml IH Q4H PRN 07/12/18 [History] Morphine Oral CONC [Roxanol] 5 mg PO Q4H PRN 07/12/18 [History] Nystatin Cream [Mycostatin Cream] 1 appl TP DAILY PRN 07/12/18 [History] Ondansetron HCl 8 mg PO Q4H PRN 07/12/18 [History] Promethazine [Phenergan] 25 mg RC Q6H PRN 07/12/18 [History] Ferrous Sulfate [Iron] 325 mg PO 0800,1700 09/12/18 [History] LORazepam [Ativan] 0.5 mg PO Q4HR PRN 09/12/18 [History] Meloxicam [Mobic] 7.5 mg PO 0800 09/12/18 [History] Metoprolol Succinate [Toprol Xl] 12.5 mg PO 0800 09/12/18 [History] Morphine Sulfate SR (12 HR) [MS Contin] 60 mg PO 0800,199909/12/18 [History] OxyCODONE Immed Rel [Roxicodone 5 MG] 5 mg PO Q4HR PRN 09/12/18 [History] clonazePAM [Clonazepam] 0.25 mg PO BID PRN 09/12/18 [History] Allergy/AdvReac Type Severity Reaction Status Date / Time No Known Allergies Allergy Verified 09/12/18 15:17 - Assessment and Plan (1) Sepsis Current Visit: Yes Status: Acute Patient actually needs severe sepsis criteria including to SIRS criteria on adm ission loss altered mental status plus acute kidney injury The Likely secondary to gram-negative andrew bacteremia and UTI and colitis Qualifiers: Sepsis type: sepsis due to unspecified organism Qualified Code(s): A41.9 - Sepsis, unspecified organism SNOMED Code(s): 22136885 (2) Gram-negative bacteremia Current Visit: Yes Status: Acute 09/12/2018: 2/2 sets positive for Klebsiella pneumonia pansensitive and Proteus mirabilis R: ampicillin, aztreonam, cephalosporins, gentamicin, Tygacil 09/13/2018: 2/2 sets positive for Proteus mirabilis R: ampicillin, aztreonam, cephalosporins, gentamicin, Tygacil 09/14/2018: 1/2 sets positive for gram-negative andrew final ID pending likely Proteus mirabilis Source likely either from colitis or urinary tract infection Patient currently on Zosyn which should cover both Duration of treatment probably 14 days For now continue Zosyn, the only oral option that I can think of that the patient might go home on if she is clinically doing better and back at baseline would be a fluoroquinolone Monitor labs Repeat cultures on 09/16/2018 SNOMED Code(s): 407524344459 (3) Colitis Current Visit: Yes Status: Acute Stercoral colitis on stool softners SNOMED Code(s): 85845143 (4) Complicated UTI (urinary tract infection) Current Visit: Yes Status: Acute Patient has an indwelling Barton Urine culture were positive for Proteus SNOMED Code(s): 03889869 (5) Altered mental status Current Visit: Yes Status: Acute Likely secondary to underlying dementia and metabolic encephalopathy Appears to be back at baseline Qualifiers: Altered mental status type: unspecified Qualified Code(s): R41.82 - Altered mental status, unspecified SNOMED Code(s): 162766972 (6) Fecal impaction Current Visit: No Status: Acute SNOMED Code(s): 94516027 (7) Acute kidney injury Current Visit: Yes Status: Acute Likely might be multifactorial including secondary to sepsis. Improved Patient also has hydronephrosis SNOMED Code(s): 14940170, 83073293 Past Med Surg Social Fam HX - Past Medical History Medical history: arthritis, dementia, diabetes, GERD, hyperlipidemia, osteoporosis, pulmonary embolus Additional medical history: Pt from [facility]hab Psychiatric history: anxiety, depression - Past Surgical History Surgical History: appendectomy, cholecystectomy, colostomy, hysterectomy Additional surgical history: Colon resection with colostomy and colostomy revers al - Social History Smoking Status: Former smoker Smokeless Tobacco Status: No Alcohol use: none Drug use: none - Family History Mother Living Status: Hx Family Cardiac Disorders: Yes (arterial disease) Father Living Status: Hx Family Cancer: Yes (Leukemia) Consult Discharge Plan - Plan Referrals: Anand Morejon [Primary Care Provider] -
[2018-09-15] MEDS: Piperacillin/Tazobactam 3.375 GM in 0.9 % Sodium Chloride Mini Bag 100 ML IVPB SCH (15:47)
[2018-09-15] MEDS: *HR* Morphine Soln 10 MG/5 ML UDC PO PRN (15:48)
[2018-09-15] MEDS: Leptospermum Honey GEL 1 APPL/5 ML MLS TP SCH (15:51)
[2018-09-16] MEDS: Piperacillin/Tazobactam 3.375 GM in 0.9 % Sodium Chloride Mini Bag 100 ML IVPB SCH ×4 (00:19→23:48)
[2018-09-16 05:09] LABS: Basophils % 0.1 %; Eosinophils # 0.1 K/mcL (0.0-0.6); Eosinophils % 0.7 %; Hematocrit 30.2 % (35.3-44.9); Hemoglobin 9.9 g/dL (11.5-15.4); Immature Granulocytes % 1.5 % (0-4); Lymphocytes # 0.8 K/mcL (0.6-4.6); Lymphocytes % 6.2 %; Mean Corpuscular HGB Conc 32.8 g/dL (31.6-35.5); Mean Corpuscular Hemoglobin 27.3 pg (28.0-33.3); Mean Corpuscular Volume 83.4 fL (83.0-100.0); Mean Platelet Volume 9.1 fL (9.4-12.4); Monocytes # 0.6 K/mcL (0.0-1.3); Neutrophils # 11.9 K/mcL (1.6-8.9); Platelet Count 230 K/mcL (140-400); Red Blood Count 3.62 M/mcL (3.82-4.97); Red Cell Distribution Width 15.9 % (11.5-14.5); Segmented Neutrophils % 87.5 %; White Blood Count 13.6 K/mcL (4.3-11.1)
[2018-09-16 05:17] LABS: BUN/Creatinine Ratio 30 (6-26); Blood Urea Nitrogen 25 mg/dL (8-23); Calcium 7.9 mg/dL (8.6-10.3); Carbon Dioxide 21 mEq/L (23-29); Chloride 101 mEq/L (98-107); Glucose 139 mg/dL (70-105); Osmolality,Calculated 279 (280-300); Potassium 3.3 mEq/L (3.5-5.1); Sodium 131 mEq/L (136-145); eGFR For African Americans > 60 (> 60); eGFR For Non-African Americans > 60 (> 60)
[2018-09-16] MEDS: *HR* Heparin 5,000 UNIT/ML VIAL SQ SCH ×2 (05:31→16:25)
[2018-09-16] MEDS: Insulin LISPRO 300 UNITS/3 ML VIAL SQ SCH ×4 (07:34→20:20)
[2018-09-16] MEDS: *HR* Morphine Sulfate SR (12 HR) 15 MG TABLET.ER PO SCH ×2 (07:51→20:20)
[2018-09-16] MEDS: Leptospermum Honey GEL 1 APPL/5 ML MLS TP SCH (07:52)
[2018-09-16] MEDS: Sennosides/Docusate Sodium TABLET PO SCH ×2 (07:52→20:20)
[2018-09-16] MEDS: FLUoxetine 20 MG CAPSULE PO SCH (07:52)
--- NOTE | 2018-09-16 09:23 | Urology Progress Note ---
Date of Encounter: 09/16/18 Time of Encounter: 09:20 - Assessment and Plan (1) Urinary tract infection Current Visit: No Status: Acute Assessment and plan: 78-year-old woman with a urinary tract infection with Klebsiella and Proteus along with bilateral hydronephrosis. Her renal function has been preserved. She continues to have reasonable urine output. She did have stool impaction. She is having bowel movements. I reviewed her recent cultures. She is growing out gram-negative rods in her blood as well as urine from 09/14/2018. She has been on Zosyn for this. I discussed the hydronephrosis with her daughter. We reviewed continued observation versus proceeding with cystoscopy and bilateral ureteral stent placement. Clinically, Larissa seems to be stable. Heart rate and blood pressure okay. We discussed the risks involved with an anesthetic. At this point her daughter wishes to monitor for now. We can consider repeat imaging to see if the hydronephrosis has improved as her bowel movements are becoming more frequent. We will hold off on further intervention this time. Urology will follow along. Qualifiers: Urinary tract infection type: acute cystitis Hematuria presence: without hematuria Qualified Code(s): N30.00 - Acute cystitis without hematuria (2) Hydronephrosis Current Visit: Yes Status: Acute Qualifiers: Hydronephrosis type: unspecified Qualified Code(s): N13.30 - Unspecified h ydronephrosis Progress Note Narrative: 78-year-old woman with urinary tract infection, sepsis, and indwelling catheter. Her CT scan showed bilateral hydronephrosis. Her urine has been draining well. Her renal function has been stable. I had a conversation with her daughter, Margareth, over the phone today. I discussed Larissa's case with her. Objective Initial Vital Signs Temp Pulse Resp BP Pulse Ox 98.4 F 75 13 102/63 98 09/12/18 14:26 09/12/18 14:26 09/12/18 14:26 09/12/18 14:26 09/12/18 14:26 - General physical appearance Present: well developed, well nourished, no distress (Sleeping) - Genitourinary Urine Appearance: Present: Clear (Barton catheter in place with clear urine.) - Labs 09/16/18 04:30 09/16/18 04:30 Diabetes panel 09/15/18 09/16/18 Range/Units 08:41 04:30 Sodium 128 L 131 L (136-145) mEq/L Potassium 3.9 3.3 L (3.5-5.1) mEq/L Chloride 98 101 (98-107) mEq/L Carbon Dioxide 17 L 21 L (23-29) mEq/L BUN 27 H 25 H (8-23) mg/dL Creatinine 0.69 0.82 (0.60-1.20) mg/dL Glucose 236 H 139 H (70-105) mg/dL Calcium 8.4 L 7.9 L (8.6-10.3) mg/dL Calcium panel 09/15/18 09/16/18 Range/Units 08:41 04:30 Calcium 8.4 L 7.9 L (8.6-10.3) mg/dL Pituitary panel 09/15/18 09/16/18 Range/Units 08:41 04:30 Sodium 128 L 131 L (136-145) mEq/L Potassium 3.9 3.3 L (3.5-5.1) mEq/L Chloride 98 101 (98-107) mEq/L Carbon Dioxide 17 L 21 L (23-29) mEq/L BUN 27 H 25 H (8-23) mg/dL Creatinine 0.69 0.82 (0.60-1.20) mg/dL Glucose 236 H 139 H (70-105) mg/dL Calcium 8.4 L 7.9 L (8.6-10.3) mg/dL Adrenal panel 09/15/18 09/16/18 Range/Units 08:41 04:30 Sodium 128 L 131 L (136-145) mEq/L Potassium 3.9 3.3 L (3.5-5.1) mEq/L Chloride 98 101 (98-107) mEq/L Carbon Dioxide 17 L 21 L (23-29) mEq/L BUN 27 H 25 H (8-23) mg/dL Creatinine 0.69 0.82 (0.60-1.20) mg/dL Glucose 236 H 139 H (70-105) mg/dL Calcium 8.4 L 7.9 L (8.6-10.3) mg/dL Consult Discharge Plan - Plan Referrals: Anand Morejon [Primary Care Provider] -
--- NOTE | 2018-09-16 13:54 | Internal Med Progress Note ---
Hospitalist Progress Note - Encounter Date of Encounter: 09/16/18 Time of Encounter: 13:52 - Subjective Interval History: Seen and examined at bedside. Says she doesn't feel well. Family at bedside and updated - Exam Vitals: Temp Pulse Resp BP Pulse Ox 97.7 F 88 15 110/73 100 09/16/18 10:55 09/16/18 10:55 09/16/18 10:55 09/16/18 10:55 09/16/18 10:55 Exam: CONSTITUTIONAL: patient appears as an age appropriate [Female ] in no acute distress. EYES Clear sclerae, bilateral pupils are equal, reactive to light. EMOI. RESPIRATORY: No accessory muscle use, bilateral reduced BS to auscultation, no wheezing, no crackles/rales. CARDIOVASCULAR: Regular heart rate, normal S1 and S2, no murmurs GASTROINTESTINAL: bowel sounds present, soft, superpelvic tenderness. MUSCULOSKELETAL: Joints in normal range of motion, no clubbing, no edema, no cyanosis. Bilateral peripheral pulses 2+. NEUROLOGIC: CN II to XII are grossly intact, no focal neurological deficit. - Assessment and Plan (1) Acute encephalopathy Current Visit: Yes Status: Acute Assessment and Plan: Secondary to urinary tract infection/sepsis. Mentation appears to be back to baseline. Supportive care. (2) Catheter-associated urinary tract infection Current Visit: Yes Status: Acute Assessment and Plan: Secondary to likely Klebsiella infection. Catheter has been changed. Infection overall improving. Continue Rocephin 2 g daily. (3) Sepsis Current Visit: Yes Status: Acute Assessment and Plan: Secondary to UTI that resolved and bacteremia, likely due to Klebsiella as PCR is positive. Sepsis now resolved (4) Type 2 diabetes mellitus Current Visit: No Status: Chronic Assessment and Plan: Blood sugars under good control. Continue sliding scale insulin. (5) History of hemiarthroplasty of left hip Current Visit: No Status: Acute Assessment and Plan: Approximately 2 weeks ago patient had surgery for her left hip fracture. Seems to be recovering well. (6) Severe dementia Current Visit: No Status: Chronic Assessment and Plan: Patient has severe dementia baseline but she is different from her baseline mental status per the daughter's report. Likely due to UTI above. Comments: [email or web address] (7) Chronic heel ulcer Current Visit: No Status: Acute Assessment and Plan: Present on admission. (8) Fecal impaction Current Visit: No Status: Acute Assessment and Plan: resolved with soapsuds enema and manual disimpaction. Cont senna and miralax (9) Acute kidney injury Current Visit: Yes Status: Acute Assessment and Plan: multifactorial setting of sepsis as well as hydronephrosis and hydroureter due to obstruction, likely secondary to severe colonic and rectal distention due to fecal impaction. Patient continues to have good urine output. Plan to relieve obstruction as discussed below and once better will check ultrasound to see that further obstruction is relieved. CT was repeated today that did show improvement in her colonic distention but still significant rectal fecal impaction. (10) DVT prophylaxis Current Visit: No Status: Acute Assessment and Plan: Heparin (11) Gram-negative bacteremia Current Visit: Yes Status: Acute Assessment and Plan: 09/12/2018: 2/2 sets positive for Klebsiella pneumonia pansensitive and Proteus mirabilis R: ampicillin, aztreonam, cephalosporins, gentamicin, Tygacil 09/13/2018: 2/2 sets positive for Proteus mirabilis R: ampicillin, aztreonam, cephalosporins, gentamicin, Tygacil 09/14/2018: 1/2 sets positive for gram-negative andrew final ID pending likely Proteus mirabilis Source likely either from colitis or urinary tract infection Patient currently on Zosyn which should cover both Duration of treatment probably 14 days For now continue Zosyn, the only oral option that I can think of that the patient might go home on if she is clinically doing better and back at baseline would be a fluoroquinolone Repeat cultures on 09/16/2018 (12) Hydronephrosis Current Visit: Yes Status: Acute Assessment and Plan: ABD CT showed stable bilateral hydronephrosis which is moderate to severe on the right and mild on the left. No intervention at this time with advanced age, multiple comorbidities and risk of anesthetic. Continue to monitor. Urology following DVT Prophylaxis: Heparin - Time Spent with Patient Total time spent is greater than 50% in coordination of care (as documented) at patient's floor/unit and/or counseling patient: Internal Medicine: Result - Labs CBC & Chem 7: 09/16/18 04:30 09/16/18 04:30 Labs: Short CBC 09/16/18 Range/Units 04:30 WBC 13.6 H (4.3-11.1) K/mcL Hgb 9.9 L (11.5-15.4) g/dL Hct 30.2 L (35.3-44.9) % Plt Count 230 (140-400) K/mcL Neutrophils # 11.9 H (1.6-8.9) K/mcL BMP 09/16/18 04:30 Sodium 131 L Potassium 3.3 L Chloride 101 Carbon Dioxide 21 L BUN 25 H Creatinine 0.82 Glucose 139 H Calcium 7.9 L Consult Discharge Plan - Plan Referrals: Anand Morejon [Primary Care Provider] - (2) Catheter-associated urinary tract infection Qualifiers: Indwelling urinary catheter type: indwelling urethral catheter Encounter type: initial encounter Qualified Code(s): T83.511A - Infection and inflammatory reaction due to indwelling urethral catheter, initial encounter; N39.0 - Urinary tract infection, site not specified (3) Sepsis Qualifiers: Sepsis type: sepsis due to unspecified organism Qualified Code(s): A41.9 - Sepsis, unspecified organism (4) Type 2 diabetes mellitus Qualifiers: Diabetes mellitus fci insulin use: with termite inspector use Diabetes mellitus complication status: with unspecified complications (7) Chronic heel ulcer Qualifiers: Laterality: unspecified laterality Non-pressure ulcer stage: unspecified non- pressure ulcer stage Qualified Code(s): L97.409 - Non-pressure chronic ulcer of unspecified heel and midfoot with unspecified severity (12) Hydronephrosis Qualifiers: Hydronephrosis type: unspecified Qualified Code(s): N13.30 - Unspecified hydronephrosis
[2018-09-16] MEDS: *HR* Morphine Soln 10 MG/5 ML UDC PO PRN (16:30)
[2018-09-16] MEDS: Ondansetron 4 MG/2 ML VIAL IVP PRN (23:47)
[2018-09-17 04:35] LABS: Hematocrit 28.1 % (35.3-44.9); Hemoglobin 9.4 g/dL (11.5-15.4); Mean Corpuscular HGB Conc 33.5 g/dL (31.6-35.5); Mean Corpuscular Hemoglobin 28.2 pg (28.0-33.3); Mean Corpuscular Volume 84.4 fL (83.0-100.0); Mean Platelet Volume 8.6 fL (9.4-12.4); Platelet Count 231 K/mcL (140-400); Red Blood Count 3.33 M/mcL (3.82-4.97); Red Cell Distribution Width 15.9 % (11.5-14.5)
[2018-09-17 04:59] LABS: Alanine Aminotransferase 6 Units/L (7-52); Albumin 2.1 g/dL (3.5-5.7); Albumin/Globulin Ratio 0.9 (1.1-2.2); Alkaline Phosphatase 70 Units/L (34-104); Aspartate Amino Transferase 8 Units/L (13-39); BUN/Creatinine Ratio 28 (6-26); Bilirubin,Total 0.6 mg/dL (0.3-1.0); Blood Urea Nitrogen 22 mg/dL (8-23); Calcium 7.1 mg/dL (8.6-10.3); Carbon Dioxide 21 mEq/L (23-29); Chloride 105 mEq/L (98-107); Globulin 2.4 g/dL (2.4-3.5); Glucose 109 mg/dL (70-105); Osmolality,Calculated 282 (280-300); Potassium 2.7 mEq/L (3.5-5.1); Sodium 134 mEq/L (136-145); Total Protein 4.5 g/dL (6.4-8.9); eGFR For African Americans > 60 (> 60); eGFR For Non-African Americans > 60 (> 60)
[2018-09-17] MEDS: *HR* Heparin 5,000 UNIT/ML VIAL SQ SCH ×2 (05:29→16:25)
[2018-09-17] MEDS: Insulin LISPRO 300 UNITS/3 ML VIAL SQ SCH ×4 (08:17→20:56)
[2018-09-17] MEDS: *HR* Morphine Sulfate SR (12 HR) 15 MG TABLET.ER PO SCH ×2 (08:17→20:38)
[2018-09-17] MEDS: FLUoxetine 20 MG CAPSULE PO SCH (08:17)
[2018-09-17] MEDS: Piperacillin/Tazobactam 3.375 GM in 0.9 % Sodium Chloride Mini Bag 100 ML IVPB SCH ×3 (08:18→23:36)
[2018-09-17] MEDS: Sennosides/Docusate Sodium TABLET PO SCH ×2 (08:18→20:39)
[2018-09-17] MEDS: Leptospermum Honey GEL 1 APPL/5 ML MLS TP SCH (08:18)
--- NOTE | 2018-09-17 08:46 | Urology Progress Note ---
Date of Encounter: 09/17/18 Time of Encounter: 08:44 - Assessment and Plan (1) Urinary tract infection Current Visit: No Status: Acute Assessment and plan: 78-year-old woman with urinary tract infection with sepsis. Urine is remaining clear. Her sepsis seems to be resolved. Proteus is growing out which is sensitive to the Zosyn. Continue Barton catheter. Appreciate internal medicine support. Qualifiers: Urinary tract infection type: acute cystitis Hematuria presence: without hematuria Qualified Code(s): N30.00 - Acute cystitis without hematuria (2) Hydronephrosis Current Visit: Yes Status: Acute Assessment and plan: Renal function is stable. Can consider repeat imaging to evaluate for change in hydronephrosis. Currently we are managing this conservatively without placing stents. Her renal function remains stable and her infection seems to be clearing. Qualifiers: Hydronephrosis type: unspecified Qualified Code(s): N13.30 - Unspecified hydronephrosis Progress Note Narrative: Stable today. No fevers overnight. White blood cell count is improving. Urine appears clear. Urine culture is growing out Proteus. It is sensitive to Zosyn. Objective Initial Vital Signs Temp Pulse Resp BP Pulse Ox 98.4 F 75 13 102/63 98 09/12/18 14:26 09/12/18 14:26 09/12/18 14:26 09/12/18 14:26 09/12/18 14:26 - General physical appearance Present: well developed, well nourished, no distress - Respiratory Present: normal respiratory effort - Genitourinary Urine Appearance: Present: Clear - Labs 09/17/18 04:24 09/17/18 04:24 Diabetes panel 09/17/18 Range/Units 04:24 Sodium 134 L (136-145) mEq/L Potassium 2.7 L (3.5-5.1) mEq/L Chloride 105 (98-107) mEq/L Carbon Dioxide 21 L (23-29) mEq/L BUN 22 (8-23) mg/dL Creatinine 0.79 (0.60-1.20) mg/dL Glucose 109 H (70-105) mg/dL Calcium 7.1 L (8.6-10.3) mg/dL AST 8 L (13-39) Units/L ALT 6 L (7-52) Units/L Alkaline Phosphatase 70 (34-104) Units/L Albumin 2.1 L (3.5-5.7) g/dL Calcium panel 09/17/18 Range/Units 04:24 Calcium 7.1 L (8.6-10.3) mg/dL Albumin 2.1 L (3.5-5.7) g/dL Pituitary panel 09/17/18 Range/Units 04:24 Sodium 134 L (136-145) mEq/L Potassium 2.7 L (3.5-5.1) mEq/L Chloride 105 (98-107) mEq/L Carbon Dioxide 21 L (23-29) mEq/L BUN 22 (8-23) mg/dL Creatinine 0.79 (0.60-1.20) mg/dL Glucose 109 H (70-105) mg/dL Calcium 7.1 L (8.6-10.3) mg/dL Adrenal panel 09/17/18 Range/Units 04:24 Sodium 134 L (136-145) mEq/L Potassium 2.7 L (3.5-5.1) mEq/L Chloride 105 (98-107) mEq/L Carbon Dioxide 21 L (23-29) mEq/L BUN 22 (8-23) mg/dL Creatinine 0.79 (0.60-1.20) mg/dL Glucose 109 H (70-105) mg/dL Calcium 7.1 L (8.6-10.3) mg/dL Total Bilirubin 0.6 (0.3-1.0) mg/dL AST 8 L (13-39) Units/L ALT 6 L (7-52) Units/L Alkaline Phosphatase 70 (34-104) Units/L Albumin 2.1 L (3.5-5.7) g/dL Consult Discharge Plan - Plan Referrals: Anand Morejon [Primary Care Provider] -
--- NOTE | 2018-09-17 15:22 | Internal Med Progress Note ---
Hospitalist Progress Note - Encounter Date of Encounter: 09/17/18 Time of Encounter: 15:17 - Subjective Interval History: Seen and examined at bedside. - Exam Vitals: Temp Pulse Resp BP Pulse Ox 98.1 F 82 16 81/49 100 09/17/18 15:07 09/17/18 15:07 09/17/18 15:07 09/17/18 15:07 09/17/18 15:07 Exam: CONSTITUTIONAL: patient appears as an age appropriate [Female ] in no acute distress. EYES Clear sclerae, bilateral pupils are equal, reactive to light. EMOI. RESPIRATORY: No accessory muscle use, bilateral reduced BS to auscultation, no wheezing, no crackles/rales. CARDIOVASCULAR: Regular heart rate, normal S1 and S2, no murmurs GASTROINTESTINAL: bowel sounds present, soft, superpelvic tenderness. MUSCULOSKELETAL: Joints in normal range of motion, no clubbing, no edema, no cyanosis. Bilateral peripheral pulses 2+. NEUROLOGIC: CN II to XII are grossly intact, no focal neurological deficit. - Assessment and Plan (1) Acute encephalopathy Current Visit: Yes Status: Acute Assessment and Plan: Secondary to urinary tract infection/sepsis. Mentation appears to be back to baseline. Supportive care. (2) Catheter-associated urinary tract infection Current Visit: Yes Status: Acute Assessment and Plan: Secondary to likely Klebsiella infection. Catheter has been changed. Infection overall improving. Continue Rocephin 2 g daily. (3) Sepsis Current Visit: Yes Status: Acute Assessment and Plan: Secondary to UTI that resolved and bacteremia, likely due to Klebsiella as PCR is positive. Sepsis now resolved (4) Type 2 diabetes mellitus Current Visit: No Status: Chronic Assessment and Plan: Blood sugars under good control. Continue sliding scale insulin. (5) History of hemiarthroplasty of left hip Current Visit: No Status: Acute Assessment and Plan: Approximately 2 weeks ago patient had surgery for her left hip fracture. Seems to be recovering well. (6) Severe dementia Current Visit: No Status: Chronic Assessment and Plan: Patient has severe dementia baseline but she is different from her baseline mental status per the daughter's report. Likely due to UTI above. Comments: isaias.[email or web address].lkhfl/d (7) Chronic heel ulcer Current Visit: No Status: Acute Assessment and Plan: Present on admission. (8) Fecal impaction Current Visit: No Status: Acute Assessment and Plan: resolved with soapsuds enema and manual disimpaction. Cont senna and miralax (9) Acute kidney injury Current Visit: Yes Status: Acute Assessment and Plan: multifactorial setting of sepsis as well as hydronephrosis and hydroureter due to obstruction, likely secondary to severe colonic and rectal distention due to fecal impaction. Renal function now normalized. Resolved (10) Gram-negative bacteremia Current Visit: Yes Status: Acute Assessment and Plan: 09/12/2018: 2/2 sets positive for Klebsiella pneumonia pansensitive and Proteus mirabilis R: ampicillin, aztreonam, cephalosporins, gentamicin, Tygacil 09/13/2018: 2/2 sets positive for Proteus mirabilis R: ampicillin, aztreonam, cephalosporins, gentamicin, Tygacil 09/14/2018: 1/2 sets positive for gram-negative andrew final ID pending likely Proteus mirabilis Source likely either from colitis or urinary tract infection Patient currently on Zosyn which should cover both Duration of treatment probably 14 days Continue Zosyn Repeat blood cx's from 09/17/18 pending (11) Hydronephrosis Current Visit: Yes Status: Acute Assessment and Plan: ABD CT showed stable bilateral hydronephrosis which is moderate to severe on the right and mild on the left. No intervention at this time with advanced age, multiple comorbidities and risk of anesthetic. Continue to monitor. Urology following (12) Hypokalemia Current Visit: No Status: Acute Assessment and Plan: etiology unknown. No loose stool. Monitor and PRN. Mg level pending (13) DVT prophylaxis Current Visit: No Status: Acute Assessment and Plan: Heparin - Time Spent with Patient Total time spent is greater than 50% in coordination of care (as documented) at patient's floor/unit and/or counseling patient: Internal Medicine: Result - Labs CBC & Chem 7: 09/17/18 04:24 09/17/18 04:24 Labs: Short CBC 09/17/18 Range/Units 04:24 WBC 11.0 (4.3-11.1) K/mcL Hgb 9.4 L (11.5-15.4) g/dL Hct 28.1 L (35.3-44.9) % Plt Count 231 (140-400) K/mcL BMP 09/17/18 04:24 Sodium 134 L Potassium 2.7 L Chloride 105 Carbon Dioxide 21 L BUN 22 Creatinine 0.79 Glucose 109 H Calcium 7.1 L Liver Function 09/17/18 Range/Units 04:24 Total Bilirubin 0.6 (0.3-1.0) mg/dL AST 8 L (13-39) Units/L ALT 6 L (7-52) Units/L Alkaline Phosphatase 70 (34-104) Units/L Albumin 2.1 L (3.5-5.7) g/dL Consult Discharge Plan - Plan Referrals: Anand Morejon [Primary Care Provider] - (2) Catheter-associated urinary tract infection Qualifiers: Indwelling urinary catheter type: indwelling urethral catheter Encounter type: initial encounter Qualified Code(s): T83.511A - Infection and inflammatory reaction due to indwelling urethral catheter, initial encounter; N39.0 - Urinary tract infection, site not specified (3) Sepsis Qualifiers: Sepsis type: sepsis due to unspecified organism Qualified Code(s): A41.9 - Sepsis, unspecified organism (4) Type 2 diabetes mellitus Qualifiers: Diabetes mellitus mcfp insulin use: with mcfp use Diabetes mellitus complication status: with unspecified complications (7) Chronic heel ulcer Qualifiers: Laterality: unspecified laterality Non-pressure ulcer stage: unspecified non- pressure ulcer stage Qualified Code(s): L97.409 - Non-pressure chronic ulcer of unspecified heel and midfoot with unspecified severity (11) Hydronephrosis Qualifiers: Hydronephrosis type: unspecified Qualified Code(s): N13.30 - Unspecified hydronephrosis
[2018-09-18] MEDS: *HR* Heparin 5,000 UNIT/ML VIAL SQ SCH ×2 (05:21→16:33)
[2018-09-18 07:55] LABS: Hematocrit 27.3 % (35.3-44.9); Hemoglobin 8.9 g/dL (11.5-15.4); Mean Corpuscular HGB Conc 32.6 g/dL (31.6-35.5); Mean Corpuscular Hemoglobin 27.6 pg (28.0-33.3); Mean Corpuscular Volume 84.8 fL (83.0-100.0); Mean Platelet Volume 9.6 fL (9.4-12.4); Platelet Count 292 K/mcL (140-400); Red Blood Count 3.22 M/mcL (3.82-4.97); White Blood Count 10.9 K/mcL (4.3-11.1)
[2018-09-18] MEDS: Sennosides/Docusate Sodium TABLET PO SCH ×2 (07:56→20:02)
[2018-09-18] MEDS: FLUoxetine 20 MG CAPSULE PO SCH (07:57)
[2018-09-18] MEDS: *HR* Morphine Sulfate SR (12 HR) 15 MG TABLET.ER PO SCH ×2 (07:57→20:03)
[2018-09-18] MEDS: Piperacillin/Tazobactam 3.375 GM in 0.9 % Sodium Chloride Mini Bag 100 ML IVPB SCH ×2 (07:57→15:43)
[2018-09-18 08:03] LABS: Alanine Aminotransferase 5 Units/L (7-52); Albumin 2.2 g/dL (3.5-5.7); Albumin/Globulin Ratio 0.8 (1.1-2.2); Alkaline Phosphatase 70 Units/L (34-104); Aspartate Amino Transferase 9 Units/L (13-39); BUN/Creatinine Ratio 25 (6-26); Bilirubin,Total 0.5 mg/dL (0.3-1.0); Blood Urea Nitrogen 24 mg/dL (8-23); Calcium 7.9 mg/dL (8.6-10.3); Carbon Dioxide 24 mEq/L (23-29); Chloride 103 mEq/L (98-107); Globulin 2.8 g/dL (2.4-3.5); Glucose 168 mg/dL (70-105); Osmolality,Calculated 286 (280-300); Sodium 134 mEq/L (136-145); eGFR For African Americans > 60 (> 60); eGFR For Non-African Americans 57 (> 60)
[2018-09-18] MEDS: Insulin LISPRO 300 UNITS/3 ML VIAL SQ SCH ×4 (08:04→20:02)
[2018-09-18] MEDS: Leptospermum Honey GEL 1 APPL/5 ML MLS TP SCH (08:05)
--- NOTE | 2018-09-18 08:24 | Internal Med Progress Note ---
Hospitalist Progress Note - Encounter Date of Encounter: 09/18/18 Time of Encounter: 08:22 - Subjective Interval History: Patient is doing much better, alert oriented 2, she has been tolerating to regular diet, had to 50% of breakfast. She denies abdominal pain nausea vomiting. Documentation she had a large bowel movement yesterday. We will check CT scan to uveal hydronephrosis and is stooling pack - Exam Vitals: Temp Pulse Resp BP Pulse Ox 98.3 F 77 17 101/61 99 09/18/18 07:10 09/18/18 07:10 09/18/18 07:10 09/18/18 07:10 09/18/18 07:10 Exam: CONSTITUTIONAL: patient appears as an age appropriate [Female ] in no acute distress. EYES Clear sclerae, bilateral pupils are equal, reactive to light. EMOI. RESPIRATORY: No accessory muscle use, bilateral reduced BS to auscultation, no wheezing, no crackles/rales. CARDIOVASCULAR: Regular heart rate, normal S1 and S2, no murmurs GASTROINTESTINAL: bowel sounds present, soft, superpelvic tenderness. MUSCULOSKELETAL: Joints in normal range of motion, no clubbing, no edema, no cyanosis. Bilateral peripheral pulses 2+. NEUROLOGIC: CN II to XII are grossly intact, no focal neurological deficit. DVT Prophylaxis: Heparin - Summary of Assessment and Plan Summary of Assessment and Plan: This is a 78 years old female has history of chronic granados UTI dementia chronic pain on heavy dose morphine, from F presenting altered mental status admitted for sepsis UTI, fecal impaction on 09/12. (1) Sepsis with Gram negative andrew bacteremia with Proteus and klebsiella pneumonia, ID is on board, on Iv zosyn Current Visit: Yes Status: Acute Assessment and Plan: WBC trending down afebrile, BC on 09/17 NGSF (2) Catheter-associated urinary tract infection UC growing Proteus and Klebsiella pneumonia, ATB changed to zosyn on 09/15 Current Visit: Yes Status: Acute Assessment and Plan: Secondary to likely Klebsiella and Proteus infection. Catheter has been ch anged. Infection overall improving. (3) Acute metabolic encephalopathy from UTI, resolved Current Visit: Yes Status: Acute Assessment and Plan: Secondary to urinary tract infection. Much improved today. Patient is much more awake and alert and interactive today. (4) Acute kidney injury resolved Current Visit: Yes Status: Acute Assessment and Plan: Improved today. Likely multifactorial setting of sepsis as well as hydronephrosis and hydroureter due to obstruction, likely secondary to severe colonic and rectal distention due to fecal impaction. Patient continues to have good urine output. (5) Fecal impaction from chronic high dose opaite, she was on MS morphine 60 mg TID, reduced morphine long acting down to 30 mg Current Visit: No Status: Acute Assessment and Plan: Patient will need daily enema to help her BM at discharge, continue colace senna and miralax BID will check CT for hydronephrosis and stool impaction (6) Type 2 diabetes mellitus Current Visit: No Status: Chronic Assessment and Plan: Blood sugars under good control. Continue sliding scale insulin. (7) History of hemiarthroplasty of left hip Current Visit: No Status: Acute (8) Severe dementia Current Visit: No Status: Chronic (9) Chronic heel ulcer Current Visit: No Status: Acute (10) B/L hydronephrosis from CT scan, after fecal impaction resolved, will repeat CT scan to check Hydronephrosis resolves after disimpact stool ball. appreciate urology consult (11)hypokalemia, replaced (12)chronic pain, reduced Ms morphine to 15 mg due to fecal impaction, only use prn morphine, patient looks comfortable DVT prophylaxis Current Visit: No Status: Acute Assessment and Plan: Heparin 5000 units subcutaneous twice a day disposition, ECF in 1-2 days, due to pending blood culture ( 09/17 NGSF) - Time Spent with Patient Total time spent is greater than 50% in coordination of care (as documented) at patient's floor/unit and/or counseling patient: 25 - 35 minutes Plan of Care Discussed with: family Internal Medicine: Result - Labs CBC & Chem 7: 09/18/18 07:07 09/18/18 07:07 Labs: Short CBC 09/18/18 Range/Units 07:07 WBC 10.9 (4.3-11.1) K/mcL Hgb 8.9 L (11.5-15.4) g/dL Hct 27.3 L (35.3-44.9) % Plt Count 292 (140-400) K/mcL BMP 09/17/18 09/18/18 20:19 07:07 Sodium 134 L Potassium 3.8 D 4.0 Chloride 103 Carbon Dioxide 24 BUN 24 H Creatinine 0.95 Glucose 168 H Calcium 7.9 L Liver Function 09/18/18 Range/Units 07:07 Total Bilirubin 0.5 (0.3-1.0) mg/dL AST 9 L (13-39) Units/L ALT 5 L (7-52) Units/L Alkaline Phosphatase 70 (34-104) Units/L Albumin 2.2 L (3.5-5.7) g/dL Consult Discharge Plan - Plan Referrals: Anand Morejon [Primary Care Provider] -
--- NOTE | 2018-09-18 08:35 | Urology Progress Note ---
Date of Encounter: 09/18/18 Time of Encounter: 08:10 - Assessment and Plan (1) Hydronephrosis Current Visit: Yes Status: Acute Assessment and plan: Patient is a 78-year-old female who presents with hydronephrosis. Primary team has ordered a CT to reevaluate. Renal function is stable with GFR of 57. We will await CT results. Qualifiers: Qualified Code(s): N13.30 - Unspecified hydronephrosis (2) Catheter-associated urinary tract infection Current Visit: Yes Status: Acute Assessment and plan: Patient is a 78 female who presents with a Proteus urinary tract infection. Barton catheter indwelling and draining sufficiently. Vital signs are stable and afebrile. Patient is receiving IV Zosyn. Qualifiers: Qualified Code(s): T83.511A - Infection and inflammatory reaction due to indwelling urethral catheter, initial encounter; N39.0 - Urinary tract infection, site not specified Progress Note Subjective: no new complaints Narrative: Patient seen and examined sitting upright in bed eating breakfast in no apparent distress. Mentation appears to be improving. Barton catheter is indwelling and draining transparent, clearly urine into bedside bag. Objective Initial Vital Signs Temp Pulse Resp BP Pulse Ox 98.4 F 75 13 102/63 98 09/12/18 14:26 09/12/18 14:26 09/12/18 14:26 09/12/18 14:26 09/12/18 14:26 - General physical appearance Present: no distress, no pain - Respiratory Present: normal expansion, normal respiratory effort - Abdomen Present: soft. Absent: distended - Genitourinary Urine Appearance: Present: Clear - Integumentary Present: no rash, no abnormal pigmentation - Musculoskeletal Present: normal posture - Psychiatric Present: oriented to person - Labs 09/18/18 07:07 09/18/18 07:07 Diabetes panel 09/17/18 09/18/18 Range/Units 20:19 07:07 Sodium 134 L (136-145) mEq/L Potassium 3.8 D 4.0 (3.5-5.1) mEq/L Chloride 103 (98-107) mEq/L Carbon Dioxide 24 (23-29) mEq/L BUN 24 H (8-23) mg/dL Creatinine 0.95 (0.60-1.20) mg/dL Glucose 168 H (70-105) mg/dL Calcium 7.9 L (8.6-10.3) mg/dL AST 9 L (13-39) Units/L ALT 5 L (7-52) Units/L Alkaline Phosphatase 70 (34-104) Units/L Albumin 2.2 L (3.5-5.7) g/dL Calcium panel 09/18/18 Range/Units 07:07 Calcium 7.9 L (8.6-10.3) mg/dL Albumin 2.2 L (3.5-5.7) g/dL Pituitary panel 09/17/18 09/18/18 Range/Units 20:19 07:07 Sodium 134 L (136-145) mEq/L Potassium 3.8 D 4.0 (3.5-5.1) mEq/L Chloride 103 (98-107) mEq/L Carbon Dioxide 24 (23-29) mEq/L BUN 24 H (8-23) mg/dL Creatinine 0.95 (0.60-1.20) mg/dL Glucose 168 H (70-105) mg/dL Calcium 7.9 L (8.6-10.3) mg/dL Adrenal panel 09/17/18 09/18/18 Range/Units 20:19 07:07 Sodium 134 L (136-145) mEq/L Potassium 3.8 D 4.0 (3.5-5.1) mEq/L Chloride 103 (98-107) mEq/L Carbon Dioxide 24 (23-29) mEq/L BUN 24 H (8-23) mg/dL Creatinine 0.95 (0.60-1.20) mg/dL Glucose 168 H (70-105) mg/dL Calcium 7.9 L (8.6-10.3) mg/dL Total Bilirubin 0.5 (0.3-1.0) mg/dL AST 9 L (13-39) Units/L ALT 5 L (7-52) Units/L Alkaline Phosphatase 70 (34-104) Units/L Albumin 2.2 L (3.5-5.7) g/dL Consult Discharge Plan - Plan Referrals: Anand Morejon [Primary Care Provider] -
--- NOTE | 2018-09-18 10:01 | Infectious Disease Progress No ---
ID Progress Note Date of Encounter: 09/18/18 Time of Encounter: 08:55 - Subjective Subjective: Patient seen and examined. No acute events noted overnight. Patient states overall she does not feel very well today. She denies any fevers or chills or rigors. Denies chest pain, shortness of breath, or cough. Denies nausea, vomiting, diarrhea, or constipation. She reports 4-5 loose stools per day. She does complain of diffuse abdominal pain. She has a Granados catheter that is patent. She states her appetite is not very good and she did not eat any breakfast this morning. She denies oral thrush or skin rashes. She denies any back or joint pain at this time. - Objective CBC & Chem 7: 09/19/18 04:43 09/19/18 04:43 - Exam Vitals: Temp Pulse Resp BP Pulse Ox 98.3 F 77 17 101/61 99 09/18/18 07:10 09/18/18 07:10 09/18/18 07:10 09/18/18 07:10 09/18/18 08:00 Exam: Head: Atraumatic, normal inspection, normocephalic. Eye: EOMI, PERRLA, no scleral icterus noted. ENT: Mucous membranes moist. No odontogenic infection noted. Neck: Normal inspection, no meningismus. Respiratory: Clear to auscultation. No rales, respiratory distress, rhonchi, or wheezes noted. Cardiovascular: Regular rate and rhythm, S1 and S2 audible. No murmurs, rubs, or gallops. GI: Soft, nondistended, normal bowel sounds. Generalized tenderness noted on palpation. Extremities:No joint swelling, pedal edema, or tenderness noted. Left hip incision clean, dry, and intact. Back: Normal inspection. No vertebral tenderness noted. Neurological: Alert, oriented 1, no focal deficits. Psychiatric: normal affect, normal mood. Skin: Dry, intact, warm. Normal color. No rashes. - Assessment and Plan (1) Sepsis Current Visit: Yes Status: Resolved Severe sepsis: The patient had two SIRS criteria plus metabolic encephalopathy and DARCY. Likely secondary to bacteremia, UTI, and colitis. Improved. WBC normal. Afebrile. HR normal. Blood cultures drawn 09/12/18 were positive 2/2 for K. pneumoniae and P. mirabilis. Repeat blood cultures drawn 09/13/18 were positive 2/2 for P. mirabilis. Repeat blood cultures drawn 09/14/18 were positive 1/2 for P. mirabilis. Repeat blood cultures drawn 09/17/18 are pending x 2 sets. Qualifiers: Sepsis type: sepsis due to unspecified organism Qualified Code(s): A41.9 - Sepsis, unspecified organism SNOMED Code(s): 93893846 (2) Gram-negative bacteremia Current Visit: Yes Status: Acute 09/12/2018: 2/2 sets positive for Klebsiella pneumonia pansensitive and Proteus mirabilis R: ampicillin, aztreonam, cephalosporins, gentamicin, Tygacil 09/13/2018: 2/2 sets positive for Proteus mirabilis R: ampicillin, aztreonam, cephalosporins, gentamicin, Tygacil 09/14/2018: 1/2 sets positive for P. mirabilis. 09/17/18 pending x 2 sets. Source likely either from colitis or urinary tract infection. Patient currently on Zosyn which should cover both causative organisms. SNOMED Code(s): 963709867286 (3) Complicated UTI (urinary tract infection) Current Visit: Yes Status: Acute Patient has an indwelling Granados. Urine culture were positive for Proteus. Currently on Zosyn. SNOMED Code(s): 29541434 (4) Colitis Current Visit: Yes Status: Acute Stercoral colitis. On stool softners. Continues to complain of abdominal pain. SNOMED Code(s): 10354027 (5) Fecal impaction in rectum Current Visit: No Status: Acute SNOMED Code(s): 39573838 (6) Acute kidney injury Current Visit: Yes Status: Resolved Likely might be multifactorial including sepsis and hydronephrosis. Resolved. Continue to trend. Dose-adjust medications and avoid nephrotoxins. SNOMED Code(s): 01284999, 38313203 (7) Altered mental status Current Visit: Yes Status: Resolved Likely secondary to underlying dementia and metabolic encephalopathy. Appears to be back at baseline. Qualifiers: Altered mental status type: unspecified Qualified Code(s): R41.82 - Altered mental status, unspecified SNOMED Code(s): 817207056 (8) Hydronephrosis Current Visit: Yes Status: Acute Noted on CT of the abdomen and pelvis. Urology consult. Discuss surgical intervention with the patient's family, but the risks of surgery outweighed the benefits. Qualifiers: Hydronephrosis type: unspecified Qualified Code(s): N13.30 - Unspecified hydronephrosis SNOMED Code(s): 43494367 (9) Severe dementia Current Visit: No Status: Chronic SNOMED Code(s): 58926573 Comments: isaias.[email or web address].lkhfl/d (10) Status post fracture of femur Current Visit: Yes Status: Acute Status post ORIF of the left femur fracture 07/13/[address] Soto. Surgical site does not clinically appear infected. SNOMED Code(s): 915568448 - Recommendations Recommendations: Continue to trend CBC and BMP daily. Await repeat blood cultures to finalize. Hydronephrosis and chronic granados management per the urology team's recommendations. Continue Zosyn 3.375 grams IV Q8H. Duration of treatment depends on the clinical picture. Can likely transition to PO Levaquin when ready for discharge to complete a 14 day course from the first set of negative blood cultures. Monitor renal function and dose-adjust antibiotics. Consult Discharge Plan - Plan Referrals: Anand Morejon [Primary Care Provider] - - Attending Attestation I have personally performed a face to face evaluation on this patient. I have r eviewed and agree with the care plan. History and Exam by me shows: Assessment and plan: 1.Sepsis 2.Gram-negative Dr. anemia with Klebsiella pneumoniae and Proteus mirabilis 3.Complicated Urinary tract infection 4.Altered mental status back to baseline 5.Acute kidney injury Recommendations Continue to trend CBC and BMP daily. Await repeat blood cultures to finalize. Hydronephrosis and chronic granados management per the urology team's recommendations. Continue Zosyn 3.375 grams IV Q8H. Duration of treatment depends on the clinical picture. Can likely transition to PO Levaquin when ready for discharge to complete a 14 day course from the first set of negative blood cultures. Monitor renal function and dose-adjust antibiotics.
[2018-09-18] MEDS: *HR* Morphine Soln 10 MG/5 ML UDC PO PRN ×2 (10:43→14:49)
[2018-09-18 13:02] LABS: Magnesium 1.8 mg/dL (1.6-2.6)
[2018-09-18] MEDS: Ondansetron 4 MG/2 ML VIAL IVP PRN (16:32)
[2018-09-19] MEDS: Ondansetron 4 MG/2 ML VIAL IVP PRN ×2 (00:25→15:49)
[2018-09-19] MEDS: *HR* Morphine Soln 10 MG/5 ML UDC PO PRN ×4 (00:27→22:36)
[2018-09-19 05:27] LABS: Basophils % 0.1 %; Eosinophils # 0.3 K/mcL (0.0-0.6); Eosinophils % 2.7 %; Hematocrit 25.9 % (35.3-44.9); Hemoglobin 8.3 g/dL (11.5-15.4); Immature Granulocytes % 2.4 % (0-4); Lymphocytes # 1.4 K/mcL (0.6-4.6); Lymphocytes % 13.5 %; Mean Corpuscular Hemoglobin 28.3 pg (28.0-33.3); Mean Corpuscular Volume 88.4 fL (83.0-100.0); Mean Platelet Volume 9.4 fL (9.4-12.4); Monocytes # 0.6 K/mcL (0.0-1.3); Monocytes % 5.5 %; Neutrophils # 7.7 K/mcL (1.6-8.9); Platelet Count 295 K/mcL (140-400); Red Blood Count 2.93 M/mcL (3.82-4.97); Red Cell Distribution Width 16.1 % (11.5-14.5); Segmented Neutrophils % 75.8 %; White Blood Count 10.1 K/mcL (4.3-11.1)
[2018-09-19 05:47] LABS: Alanine Aminotransferase 6 Units/L (7-52); Albumin 2.3 g/dL (3.5-5.7); Albumin/Globulin Ratio 0.9 (1.1-2.2); Alkaline Phosphatase 66 Units/L (34-104); Aspartate Amino Transferase 9 Units/L (13-39); BUN/Creatinine Ratio 27 (6-26); Bilirubin,Total 0.4 mg/dL (0.3-1.0); Blood Urea Nitrogen 23 mg/dL (8-23); Calcium 7.8 mg/dL (8.6-10.3); Carbon Dioxide 23 mEq/L (23-29); Chloride 103 mEq/L (98-107); Globulin 2.6 g/dL (2.4-3.5); Glucose 131 mg/dL (70-105); Magnesium 1.7 mg/dL (1.6-2.6); Osmolality,Calculated 279 (280-300); Potassium 3.8 mEq/L (3.5-5.1); Sodium 132 mEq/L (136-145); Total Protein 4.9 g/dL (6.4-8.9); eGFR For African Americans > 60 (> 60); eGFR For Non-African Americans > 60 (> 60)
[2018-09-19] MEDS: *HR* Heparin 5,000 UNIT/ML VIAL SQ SCH ×2 (06:12→16:55)
[2018-09-19] MEDS: Insulin LISPRO 300 UNITS/3 ML VIAL SQ SCH ×4 (07:29→20:53)
[2018-09-19] MEDS: Piperacillin/Tazobactam 3.375 GM in 0.9 % Sodium Chloride Mini Bag 100 ML IVPB SCH ×4 (09:12→23:52)
[2018-09-19] MEDS: *HR* Morphine Sulfate SR (12 HR) 15 MG TABLET.ER PO SCH ×2 (09:13→20:17)
[2018-09-19] MEDS: Sennosides/Docusate Sodium TABLET PO SCH ×2 (09:13→20:17)
[2018-09-19] MEDS: FLUoxetine 20 MG CAPSULE PO SCH (09:13)
--- NOTE | 2018-09-19 09:52 | Infectious Disease Progress No ---
ID Progress Note Date of Encounter: 09/19/18 Time of Encounter: 08:55 - Subjective Subjective: Patient seen and examined. No acute events noted overnight. Patient states overall she does not feel very well today. She denies any fevers or chills or rigors. Denies chest pain, shortness of breath, or cough. Denies nausea, vomiting, diarrhea, or constipation. She reports 4-5 loose stools per day. Currently incontinent of loose stool. She does complain of diffuse abdominal pa in. She has a Granados catheter that is patent. She states her appetite is not very good and she is only drinking coffee this morning. She denies oral thrush or skin rashes. She denies any back or joint pain at this time. - Objective CBC & Chem 7: 09/20/18 04:10 09/20/18 04:10 - Exam Vitals: Temp Pulse Resp BP Pulse Ox 98.0 F 78 16 98/56 98 09/19/18 07:16 09/19/18 07:16 09/19/18 07:16 09/19/18 07:16 09/19/18 07:16 Exam: Head: Atraumatic, normal inspection, normocephalic. Eye: EOMI, PERRLA, no scleral icterus noted. ENT: Mucous membranes moist. No odontogenic infection noted. Neck: Normal inspection, no meningismus. Respiratory: Clear to auscultation. No rales, respiratory distress, rhonchi, or wheezes noted. Cardiovascular: Regular rate and rhythm, S1 and S2 audible. No murmurs, rubs, or gallops. GI: Soft, nondistended, normal bowel sounds. Generalized tenderness noted on palpation. Granados catheter draining clear yellow urine. Extremities:No joint swelling, pedal edema, or tenderness noted. Left hip incision clean, dry, and intact. Neurological: Alert, oriented 2, no focal deficits. Psychiatric: normal affect, normal mood. Skin: Dry, intact, warm. Normal color. No rashes. - Assessment and Plan (1) Sepsis Current Visit: Yes Status: Resolved Severe sepsis: The patient had two SIRS criteria plus metabolic encephalopathy and DARCY. Likely secondary to bacteremia, UTI, and colitis. Improved. WBC normal. Afebrile. HR normal. Blood cultures drawn 09/12/18 were positive 2/2 for K. pneumoniae and P. mirabilis. Repeat blood cultures drawn 09/13/18 were positive 2/2 for P. mirabilis. Repeat blood cultures drawn 09/14/18 were positive 1/2 for P. mirabilis. Repeat blood cultures drawn 09/17/18 are NGTD x 2 sets. Qualifiers: Sepsis type: sepsis due to unspecified organism Qualified Code(s): A41.9 - Sepsis, unspecified organism SNOMED Code(s): 40382361 (2) Gram-negative bacteremia Current Visit: Yes Status: Acute 09/12/2018: 2/2 sets positive for Klebsiella pneumonia pansensitive and Proteus mirabilis R: ampicillin, aztreonam, cephalosporins, gentamicin, Tygacil 09/13/2018: 2/2 sets positive for Proteus mirabilis R: ampicillin, aztreonam, cephalosporins, gentamicin, Tygacil 09/14/2018: 1/2 sets positive for P. mirabilis. 09/17/18 NGTD x 2 sets. Source likely either from colitis or urinary tract infection. Patient currently on Zosyn which should cover both causative organisms. SNOMED Code(s): 506583118473 (3) Complicated UTI (urinary tract infection) Current Visit: Yes Status: Acute Patient has an indwelling Granados. Urine culture were positive for Proteus. CT abdomen and pelvis 09/18/18 shows diffuse bladder wall thickening compatible with either acute or chronic cystitis. No pyelonephritis noted. Currently on Zosyn. SNOMED Code(s): 42590649 (4) Colitis Current Visit: Yes Status: Acute Stercoral colitis. On stool softners. Continues to complain of abdominal pain. Repeat CT of the abdomen and pelvis shows fecal impaction of the rectosigmoid colon, although, the amount of colonic stool present is decreased from prior CT exam. 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 Bowel regimen per the primary team. SNOMED Code(s): 87710526 (5) Fecal impaction in rectum Current Visit: No Status: Acute SNOMED Code(s): 63410984 (6) Acute kidney injury Current Visit: Yes Status: Resolved Likely might be multifactorial including sepsis and hydronephrosis. Resolved. Continue to trend. Dose-adjust medications and avoid nephrotoxins. SNOMED Code(s): 08765230, 52780612 (7) Altered mental status Current Visit: Yes Status: Resolved Likely secondary to underlying dementia and metabolic encephalopathy. Appears to be back at baseline. Qualifiers: Altered mental status type: unspecified Qualified Code(s): R41.82 - Altered mental status, unspecified SNOMED Code(s): 122668214 (8) Hydronephrosis Current Visit: Yes Status: Acute Noted on CT of the abdomen and pelvis. Urology consult. Discuss surgical intervention with the patient's family, but the risks of surgery outweighed the benefits. Repeat CT of the abdomen and pelvis shows resolution of the month old left hydronephrosis, but persistence of the severe right hydroureteronephrosis to the level of the distal right ureter. Further outpatient workup planned per the urology team. Qualifiers: Hydronephrosis type: unspecified Qualified Code(s): N13.30 - Unspecified hydronephrosis SNOMED Code(s): 46782884 (9) Severe dementia Current Visit: No Status: Chronic SNOMED Code(s): 91413693 Comments: [email or web address].[email or web address]/d (10) Status post fracture of femur Current Visit: Yes Status: Acute Status post ORIF of the left femur fracture 07/13/[address] Soto. Surgical site does not clinically appear infected. SNOMED Code(s): 725337843 - Recommendations Recommendations: Continue to trend CBC and BMP daily. Await repeat blood cultures to finalize. Hydronephrosis and chronic granados management per the urology team's recommendatio ns. Continue Zosyn 3.375 grams IV Q8H. Duration of treatment depends on the clinical picture. Can likely transition to PO Levaquin when ready for discharge to complete a 14 day course from the first set of negative blood cultures. Monitor renal function and dose-adjust antibiotics. Consult Discharge Plan - Plan Referrals: Anand Morejon [Primary Care Provider] - (Patient is being discharged with [facility].) Prescriptions: levoFLOXacin [Levofloxacin] 750 mg PO DAILY 11 Days #11 tablet Sennosides/Docusate Sodium [Senna Plus] 2 each PO BID 30 Days #60 tablet - Attending Attestation I have personally performed a face to face evaluation on this patient. I have reviewed and agree with the care plan. History and Exam by me shows: Assessment and plan: 1.Sepsis 2.Gram-negative bacteremia with Klebsiella pneumoniae and Proteus mirabilis 3.Complicated Urinary tract infection 4.Altered mental status back to baseline 5.Acute kidney injury Recommendations Continue to trend CBC and BMP daily. Await repeat blood cultures to finalize. Hydronephrosis and chronic granados management per the urology team's recommendations. Continue Zosyn 3.375 grams IV Q8H. Duration of treatment depends on the clinical picture. Can likely transition to PO Levaquin when ready for discharge to complete a 14 day course from the first set of negative blood cultures. Monitor renal function and dose-adjust antibiotics.
--- NOTE | 2018-09-19 10:16 | Internal Med Progress Note ---
Hospitalist Progress Note - Encounter Date of Encounter: 09/19/18 Time of Encounter: 10:13 - Subjective Interval History: I have seen and evaluated the patient at bedside. patient reports poor appetite and generalized weakness. denies nausea, vomiting or shortness or breath, reports abdominal discomfort. - Exam Vitals: Temp Pulse Resp BP Pulse Ox 98.0 F 78 16 98/56 98 09/19/18 07:16 09/19/18 07:16 09/19/18 07:16 09/19/18 07:16 09/19/18 07:16 Exam: Vitals: Reviewed General: Alert and oriented x3. In mild distress due to generalized weakness Cardiovascular: RRR, normal S1 & S2, no rubs, murmurs or gallops. Lungs: CTA b/l, no wheezes or crackles. Abdomen: Soft, non-tender, no rigidity. NABS in all 4 quadrants. Extremities: edema. Neurological: Normal cognition Rest of the physical exam is non contributory - Assessment and Plan (1) Gram-negative bacteremia Current Visit: Yes Status: Acute Assessment and Plan: lood cultures drawn 09/12/18 were positive 2/2 for K. pneumoniae and P. mirabilis. Repeat blood cultures drawn 09/13/18 were positive 2/2 for P. mirabilis. Repeat blood cultures drawn 09/14/18 were positive 1/2 for P. mirabilis. Repeat blood cultures drawn 09/17/18 are NGTD x 2 sets. Plan patient is on piperacillin/tazobactam 3.375mg/IV Q8HRs ID recommendations appreciated (2) Catheter-associated urinary tract infection Current Visit: Yes Status: Acute Assessment and Plan: plan of care as above. (3) Type 2 diabetes mellitus Current Visit: No Status: Chronic Assessment and Plan: blood sugar is well controlled. continue lispro low dose sliding scale ac. encourage PO intake. (4) History of hemiarthroplasty of left hip Current Visit: No Status: Chronic (5) Severe dementia Current Visit: No Status: Chronic Comments: [email or web address].[email or web address].[email or web address]/d (6) Chronic heel ulcer Current Visit: No Status: Chronic Assessment and Plan: continue wound care per wound care nurse recommendations. (7) Fecal impaction Current Visit: No Status: Acute Assessment and Plan: patient is on senna/docusate 2 tabs/PO BID and polyethylene glycol (8) Sepsis Current Visit: Yes Status: Resolved (9) Acute kidney injury Current Visit: Yes Status: Resolved (10) Acute encephalopathy Current Visit: Yes Status: Resolved (11) Hydronephrosis Current Visit: Yes Status: Acute Assessment and Plan: urology consulted, recommendations appreciated. per urologist note, patient may need cystoscopy with right retrograde pyelogram. (12) Hypokalemia Current Visit: No Status: Resolved DVT Prophylaxis: patient is on heparin subQ - Summary of Assessment and Plan Summary of Assessment and Plan: patient to remain in the hospital on broad spectrum IV antibiotics. - Time Spent with Patient Total time spent is greater than 50% in coordination of care (as documented) at patient's floor/unit and/or counseling patient: Greater than 35 minutes (40) Plan of Care Discussed with: patient (and the nurse.) Internal Medicine: Result - Labs CBC & Chem 7: 09/19/18 04:43 09/19/18 04:43 Labs: Short CBC 09/19/18 Range/Units 04:43 WBC 10.1 (4.3-11.1) K/mcL Hgb 8.3 L (11.5-15.4) g/dL Hct 25.9 L (35.3-44.9) % Plt Count 295 (140-400) K/mcL Neutrophils # 7.7 (1.6-8.9) K/mcL BMP 09/18/18 09/19/18 07:07 04:43 Sodium 134 L 132 L Potassium 4.0 3.8 Chloride 103 103 Carbon Dioxide 24 23 BUN 24 H 23 Creatinine 0.95 0.84 Glucose 168 H 131 H Calcium 7.9 L 7.8 L Liver Function 09/18/18 09/19/18 Range/Units 07:07 04:43 Total Bilirubin 0.5 0.4 (0.3-1.0) mg/dL AST 9 L 9 L (13-39) Units/L ALT 5 L 6 L (7-52) Units/L Alkaline Phosphatase 70 66 (34-104) Units/L Albumin 2.2 L 2.3 L (3.5-5.7) g/dL - Impressions Impressions Abdomen/Pelvis CT 09/18/18 08:21 IMPRESSION: 1. Fecal impaction of the rectosigmoid colon, although, the amount of colonic stool present is decreased from the prior CT exam. 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 2. Severe right hydroureteronephrosis, to the level of the distal right ureter. This is stable from the recent exam, but is new from 2017. A definite etiology is not identified. Consider urologic consultation, if not already performed. 3. Resolved previously present mild left hydronephrosis. 4. Diffuse bladder wall thickening, compatible with either acute or chronic cystitis. 5. New trace bilateral pleural effusions. D/ / 09/18/2018 10:48:57 Luis Naik MD / darrel Interpreting Provider: Luis Naik MD Consult Discharge Plan - Plan Referrals: Anand Morejon [Primary Care Provider] - (2) Catheter-associated urinary tract infection Qualifiers: Indwelling urinary catheter type: indwelling urethral catheter Encounter type: initial encounter Qualified Code(s): T83.511A - Infection and inflammatory reaction due to indwelling urethral catheter, initial encounter; N39.0 - Urinary tract infection, site not specified (3) Type 2 diabetes mellitus Qualifiers: Diabetes mellitus termite control representative insulin use: with termite control representative use Diabetes mellitus complication status: with unspecified complications (6) Chronic heel ulcer Qualifiers: Laterality: unspecified laterality Non-pressure ulcer stage: unspecified non- pressure ulcer stage Qualified Code(s): L97.409 - Non-pressure chronic ulcer of unspecified heel and midfoot with unspecified severity (8) Sepsis Qualifiers: Sepsis type: sepsis due to unspecified organism Qualified Code(s): A41.9 - Sepsis, unspecified organism (11) Hydronephrosis Qualifiers: Hydronephrosis type: unspecified Qualified Code(s): N13.30 - Unspecified hydronephrosis
--- NOTE | 2018-09-19 12:43 | Urology Progress Note ---
Date of Encounter: 09/19/18 Time of Encounter: 12:41 - Assessment and Plan (1) Urinary tract infection Current Visit: No Status: Acute Assessment and plan: 78-year-old woman with a Proteus urinary tract infection. I reviewed her CT scan. I tried to call her daughter today, but had to leave a message. She still has persistent right hydronephrosis, but clinically she seems to be doing fairly well. She still has a large amount stool in her colon with some gaseous distention as well. At this point we will continue with observation. Once again touch with her daughter, I can discuss the indications for a cystoscopy, right retropyelogram, possible right ureteroscopy, and possible right ureteral stent placement. With her clinically improving, this can certainly be something arranged for as an outpatient Qualifiers: Urinary tract infection type: acute cystitis Hematuria presence: without hematuria Qualified Code(s): N30.00 - Acute cystitis without hematuria (2) Hydronephrosis Current Visit: Yes Status: Acute Qualifiers: Hydronephrosis type: unspecified Qualified Code(s): N13.30 - Unspecified hydronephrosis Progress Note Narrative: Doing well today. Mental status seems to be at baseline. Urine is draining clear. Objective Initial Vital Signs Temp Pulse Resp BP Pulse Ox 98.4 F 75 13 102/63 98 09/12/18 14:26 09/12/18 14:26 09/12/18 14:26 09/12/18 14:26 09/12/18 14:26 - General physical appearance Present: well developed, well nourished, no distress - Respiratory Present: normal respiratory effort - Abdomen Present: soft - Genitourinary Urine Appearance: Present: Clear - Labs 09/19/18 04:43 09/19/18 04:43 Diabetes panel 09/19/18 Range/Units 04:43 Sodium 132 L (136-145) mEq/L Potassium 3.8 (3.5-5.1) mEq/L Chloride 103 (98-107) mEq/L Carbon Dioxide 23 (23-29) mEq/L BUN 23 (8-23) mg/dL Creatinine 0.84 (0.60-1.20) mg/dL Glucose 131 H (70-105) mg/dL Calcium 7.8 L (8.6-10.3) mg/dL AST 9 L (13-39) Units/L ALT 6 L (7-52) Units/L Alkaline Phosphatase 66 (34-104) Units/L Albumin 2.3 L (3.5-5.7) g/dL Calcium panel 09/19/18 Range/Units 04:43 Calcium 7.8 L (8.6-10.3) mg/dL Albumin 2.3 L (3.5-5.7) g/dL Pituitary panel 09/19/18 Range/Units 04:43 Sodium 132 L (136-145) mEq/L Potassium 3.8 (3.5-5.1) mEq/L Chloride 103 (98-107) mEq/L Carbon Dioxide 23 (23-29) mEq/L BUN 23 (8-23) mg/dL Creatinine 0.84 (0.60-1.20) mg/dL Glucose 131 H (70-105) mg/dL Calcium 7.8 L (8.6-10.3) mg/dL Adrenal panel 09/19/18 Range/Units 04:43 Sodium 132 L (136-145) mEq/L Potassium 3.8 (3.5-5.1) mEq/L Chloride 103 (98-107) mEq/L Carbon Dioxide 23 (23-29) mEq/L BUN 23 (8-23) mg/dL Creatinine 0.84 (0.60-1.20) mg/dL Glucose 131 H (70-105) mg/dL Calcium 7.8 L (8.6-10.3) mg/dL Total Bilirubin 0.4 (0.3-1.0) mg/dL AST 9 L (13-39) Units/L ALT 6 L (7-52) Units/L Alkaline Phosphatase 66 (34-104) Units/L Albumin 2.3 L (3.5-5.7) g/dL Consult Discharge Plan - Plan Referrals: Anand Morejon [Primary Care Provider] -
[2018-09-19] MEDS ORDERED: Leptospermum Honey Gel 44 ML TUBE TP SCH (21:00)
[2018-09-19] MEDS: clonazePAM 0.5 MG TABLET PO PRN (23:51)
[2018-09-20] MEDS ORDERED: Acetaminophen IV 500 MG/50 ML INFUS..BTL IVPB ONE (01:21)
[2018-09-20 04:33] LABS: Hematocrit 25.4 % (35.3-44.9); Hemoglobin 8.2 g/dL (11.5-15.4); Mean Corpuscular HGB Conc 32.3 g/dL (31.6-35.5); Mean Corpuscular Hemoglobin 27.6 pg (28.0-33.3); Mean Corpuscular Volume 85.5 fL (83.0-100.0); Platelet Count 327 K/mcL (140-400); Red Blood Count 2.97 M/mcL (3.82-4.97); White Blood Count 10.5 K/mcL (4.3-11.1)
[2018-09-20 04:52] LABS: Albumin 2.2 g/dL (3.5-5.7); Albumin/Globulin Ratio 0.8 (1.1-2.2); Bilirubin,Total 0.4 mg/dL (0.3-1.0); Globulin 2.9 g/dL (2.4-3.5); Magnesium 1.7 mg/dL (1.6-2.6); Phosphorous 2.2 mg/dL (2.7-4.5); Potassium 3.8 mEq/L (3.5-5.1); Total Protein 5.1 g/dL (6.4-8.9)
[2018-09-20] MEDS: *HR* Heparin 5,000 UNIT/ML VIAL SQ SCH (05:23)
[2018-09-20] MEDS: *HR* Morphine Soln 10 MG/5 ML UDC PO PRN ×2 (05:25→14:35)
[2018-09-20] MEDS: Insulin LISPRO 300 UNITS/3 ML VIAL SQ SCH ×2 (07:47→13:31)
[2018-09-20] MEDS: Piperacillin/Tazobactam 3.375 GM in 0.9 % Sodium Chloride Mini Bag 100 ML IVPB SCH (08:46)
[2018-09-20] MEDS: *HR* Morphine Sulfate SR (12 HR) 15 MG TABLET.ER PO SCH (08:47)
[2018-09-20] MEDS: Sennosides/Docusate Sodium TABLET PO SCH (08:47)
[2018-09-20] MEDS: FLUoxetine 20 MG CAPSULE PO SCH (08:47)
--- NOTE | 2018-09-20 11:23 | Discharge Summary ---
Orders not resulted at time of discharge: Pending orders 09/17/18 20:19 Culture,Blood [BC] Routine 09/21/18 04:00 CMP [Comprehensive Metabolic Panel] AM 0400 Complete Blood Count w/o Diff [HEME] AM 0400 Date of Encounter: 09/20/18 Time of Encounter: 11:19 - Discharge Diagnosis (1) Gram-negative bacteremia Priority: Primary Status: Acute (2) Catheter-associated urinary tract infection Priority: Primary Status: Acute Qualifiers: Indwelling urinary catheter type: indwelling urethral catheter Encounter ty pe: initial encounter Qualified Code(s): T83.511A - Infection and inflammatory reaction due to indwelling urethral catheter, initial encounter; N39.0 - Urinary tract infection, site not specified (3) Type 2 diabetes mellitus Priority: Secondary Status: Chronic Qualifiers: Diabetes mellitus long term care social worker insulin use: unspecified snf insulin use status Diabetes mellitus complication status: with other specified complication Qualified Code(s): E11.69 - Type 2 diabetes mellitus with other specified complication (4) History of hemiarthroplasty of left hip Priority: Secondary Status: Chronic (5) Severe dementia Priority: Secondary Status: Chronic (6) Chronic heel ulcer Priority: Secondary Status: Chronic Qualifiers: Laterality: unspecified laterality Non-pressure ulcer stage: unspecified non-pressure ulcer stage Qualified Code(s): L97.409 - Non-pressure chronic ulcer of unspecified heel and midfoot with unspecified severity (7) Fecal impaction Priority: Secondary Status: Resolved (8) Sepsis Priority: Primary Status: Resolved Qualifiers: Sepsis type: sepsis due to unspecified organism Qualified Code(s): A41.9 - Sepsis, unspecified organism (9) Acute kidney injury Priority: Secondary Status: Resolved (10) Acute encephalopathy Priority: Secondary Status: Resolved (11) Hydronephrosis Priority: Primary Status: Acute Qualifiers: Hydronephrosis type: unspecified Qualified Code(s): N13.30 - Unspecified hydronephrosis (12) Hypokalemia Priority: Secondary Status: Resolved Hospital course: Ms. Ibarra is a 78 year old female history of dementia, chronic pain, chronic Granados presents from [facility] emergency department due to altered mental status. Patient was admitted to the hospital due to Sepsis, UTI, DARCY and AMS due to sepsis. Patient was managed with IV antibiotics and IV fluids. As part of the work up a CT/CT abd pelvis wo no iv no oral IMPRESSION: 1. A large amount of stool remains within the rectum, although the stool burden is decreased in comparison to the exam from 09/12/2018. Diffuse irregular rectal wall thickening is present, which could be related to stercoral colitis. 2. Stable bilateral hydronephrosis which is moderate to severe on the right and mild on the left. A small amount of layering hyperdensity in the left renal pelvis could represent small stones or retained contrast. The right ureter is dist ended to its distal portion, but the left ureter is decompressed. The etiology of the hydronephrosis is unclear. urology consulted, recommended outpatient follow up. Blood culture 09/12/18: k. Pneu abd Proteous MRDO. urine culture: grew proteous. Repeat blood culture: 09/17/18: no growth to date. ID consulted recommended to DC patient on oral antibiotics, levofloxacin 750mg/PO to 10/01/18. Patient is hemodynamically stable to be discharged. Patient's family reached to the outpatient hospice unit and patient will be discharged home with hospice. - Time Spent with Patient Total time spent providing and/or coordinating discharge services: Time spent: Greater than 30 minutes (35) - Discharge Medications Prescriptions: New Sennosides/Docusate Sodium [Senna Plus] 2 each PO BID 30 Days #60 tablet levoFLOXacin [Levofloxacin] 750 mg PO DAILY 11 Days #11 tablet Continued Diphenoxylate/Atropine [Lomotil 2.5 mg/0.025 mg] 1 tab PO QID PRN PRN Reason: Diarrhea FLUoxetine HCl [Prozac] 20 mg PO 0800 Loratadine [Allergy Relief] 10 mg PO DAILY Brimonidine Tartrate [Alphagan P] 1 drop BOTH EYES 0800,2000 Calcium Carbonate [Calcium] 1,200 mg PO 0800 Ergocalciferol (VITAMIN D2) [Vitamin D2] 50,000 unit PO MO Aspirin 162 mg PO 0800,1700 Lidocaine Patch [Lidoderm 5% patch] 1 each TP DAILY Melatonin 5 mg PO 2000 Omeprazole [PriLOSEC] 20 mg PO 0600 Bisacodyl [Dulcolax] 10 mg RC DAILY PRN PRN Reason: Constipation Calcium Carbonate/Magnesium Ox [Oyster Shell Calcium-Magnes Tb] 2 each PO 0800,1200,1600,2000 Estrogens, Conjugated [Premarin Cream] 1 appl VG DAILY PRN PRN Reason: Itching Acetaminophen [Tylenol 650mg SUPP] 650 mg RC Q6H PRN PRN Reason: PAIN/FEVER Acetaminophen [Tylenol Arthritis] 650 mg PO Q6H PRN PRN Reason: PAIN/FEVER Fluconazole [Diflucan] 150 mg PO PRN PRN PRN Reason: YEAST INFECTION SYMPTOMS Hyoscyamine SL [Levsin Sl] 0.125 mg SL Q2H PRN PRN Reason: EXCESS SECRETIONS Ipratropium/Albuterol Sulfate [Iprat-Albut 0.5-3(2.5) mg/3 ml] 3 ml IH Q4H PRN PRN Reason: Shortness Of Breath Nystatin Cream [Mycostatin Cream] 1 appl TP DAILY PRN PRN Reason: YEAST Ondansetron HCl 8 mg PO Q4H PRN PRN Reason: NAUSEA/VOMITING Promethazine [Phenergan] 25 mg RC Q6H PRN PRN Reason: NAUSEA/VOMITING Ferrous Sulfate [Iron] 325 mg PO 0800,1700 Meloxicam [Mobic] 7.5 mg PO 0800 Metoprolol Succinate [Toprol Xl] 12.5 mg PO 0800 LORazepam [Ativan] 0.5 mg PO Q4HR PRN 5 Days #10 tablet PRN Reason: Anxiety clonazePAM [Clonazepam] 0.25 mg PO BID PRN 5 Days #10 tablet PRN Reason: Anxiety Morphine Oral CONC [Roxanol] 5 mg PO Q4H PRN 5 Days #10 mls PRN Reason: Pain OxyCODONE Immed Rel [Roxicodone 5 MG] 5 mg PO Q4HR PRN 5 Days #10 tablet PRN Reason: Pain Changed Morphine Sulfate SR (12 HR) [MS Contin] 15 mg PO 799,1999 5 Days #10 tablet.er Home Medications: Brimonidine Tartrate [Alphagan P] 1 drop BOTH EYES 01/08/17 [History] Diphenoxylate/Atropine [Lomotil 2.5 mg/0.025 mg] 1 tab PO QID PRN 01/08/17 [History] FLUoxetine HCl [Prozac] 20 mg PO 0800 01/08/17 [History] Loratadine [Allergy Relief] 10 mg PO DAILY 01/08/17 [History] Calcium Carbonate [Calcium] 1,200 mg PO 0800 03/15/17 [History] Ergocalciferol (VITAMIN D2) [Vitamin D2] 50,000 unit PO MO 03/15/17 [History] Aspirin 162 mg PO 0800,1700 04/19/17 [History] Lidocaine Patch [Lidoderm 5% patch] 1 each TP DAILY 04/19/17 [History] Melatonin 5 mg PO 199904/19/17 [History] Omeprazole [PriLOSEC] 20 mg PO 0604/19/17 [History] Acetaminophen [Tylenol 650mg SUPP] 650 mg RC Q6H PRN 07/12/18 [History] Acetaminophen [Tylenol Arthritis] 650 mg PO Q6H PRN 07/12/18 [History] Bisacodyl [Dulcolax] 10 mg RC DAILY PRN 07/12/18 [History] Calcium Carbonate/Magnesium Ox [Oyster Shell Calcium-Magnes Tb] 2 each PO 0800,1200,1600,199907/12/18 [History] Estrogens, Conjugated [Premarin Cream] 1 appl VG DAILY PRN 07/12/18 [History] Fluconazole [Diflucan] 150 mg PO PRN PRN 07/12/18 [History] Hyoscyamine SL [Levsin Sl] 0.125 mg SL Q2H PRN 07/12/18 [History] Ipratropium/Albuterol Sulfate [Iprat-Albut 0.5-3(2.5) mg/3 ml] 3 ml IH Q4H PRN 07/12/18 [History] Nystatin Cream [Mycostatin Cream] 1 appl TP DAILY PRN 07/12/18 [History] Ondansetron HCl 8 mg PO Q4H PRN 07/12/18 [History] Promethazine [Phenergan] 25 mg RC Q6H PRN 07/12/18 [History] Ferrous Sulfate [Iron] 325 mg PO 0800,1700 09/12/18 [History] Meloxicam [Mobic] 7.5 mg PO 0800 09/12/18 [History] Metoprolol Succinate [Toprol Xl] 12.5 mg PO 0800 09/12/18 [History] LORazepam [Ativan] 0.5 mg PO Q4HR PRN 5 Days #10 tablet 09/20/18 [Rx] Morphine Oral CONC [Roxanol] 5 mg PO Q4H PRN 5 Days #10 mls 09/20/18 [Rx] Morphine Sulfate SR (12 HR) [MS Contin] 15 mg PO 0800,1999 5 Days #10 tablet.er 09/20/18 [Rx] OxyCODONE Immed Rel [Roxicodone 5 MG] 5 mg PO Q4HR PRN 5 Days #10 tablet 09/20/18 [Rx] Sennosides/Docusate Sodium [Senna Plus] 2 each PO BID 30 Days #60 tablet 09/20/18 [Rx] clonazePAM [Clonazepam] 0.25 mg PO BID PRN 5 Days #10 tablet 09/20/18 [Rx] levoFLOXacin [Levofloxacin] 750 mg PO DAILY 11 Days #11 tablet 09/20/18 [Rx] Allergies/Adverse Reactions: Allergy/AdvReac Type Severity Reaction Status Date / Time No Known Allergies Allergy Verified 09/12/18 15:17 Date of admission: 09/13/18 12:41 Primary care physician: Anand Morejon Consults: 09/12/18 14:36 Consult to Health Safety Specialist [CONS] Routine Reason for SW Consult: [facility] 09/12/18 18:18 Consult to Wound Care [CONS] Routine Reason for Consult: multiple wounds; see wound assessment Call Completed: Yes 09/14/18 08:11 Consult to Occupational Therapy [CONS] Routine Comment: Evaluate, develop and implement POC Reason for Consult: discharge Does patient have active BEDREST order?: No Is patient medically & hemodynamically stable?: Yes Patient assessed for mobility or mobilized this visit?: Yes Consult to Physical Therapy [CONS] Routine Comment: Evaluate, develop and implement POC Reason for Consult: weakness Does patient have active BEDREST order?: No Is patient medically & hemodynamically stable?: Yes Patient assessed for mobility or mobilized this visit?: Yes 09/14/18 08:40 Consult to Urology [CONS] Routine Consulting Provider: Urology Cecily Reason for Consult: severe hydronephrosis right >left, sepsis with bacteremia, chronic granados Call Completed: Yes 09/15/18 09:36 Consult to Invasive Line Access Team [CONS] Routine Reason for Consult: poor access, iv atb Line Type: EPIV 09/15/18 11:45 Consult to Infectious Diseases [CONS] Routine Consulting Provider: Infectious Disease Cecily Reason for Consult: bacteremia Call Completed: Yes - Constitutional Vitals: Temp Pulse Resp BP Pulse Ox 98.2 F 77 18 106/67 98 09/20/18 07:39 09/20/18 07:39 09/20/18 07:39 09/20/18 07:39 09/20/18 07:39 General appearance: Present: A&O X 0 Exam: Vitals: Reviewed General: Alert and oriented x3. In mild distress due to abdominal pain. Cardiovascular: RRR, normal S1 & S2, no rubs, murmurs or gallops. Lungs: CTA b/l, no wheezes or crackles. Abdomen: Soft, non-tender, no rigidity. NABS in all 4 quadrants. Extremities: edema. Neurological: Normal cognition Rest of the physical exam is non contributory - Patient Status Disposition: Hospice - Home Condition: Fair Functional capacity at discharge: bed bound Overall status at discharge: patient is progressing back to baseline - Discharge Instructions Follow Up With: Anand Morejon [Primary Care Provider] - (Patient is being discharged with [facility].) - Diet and Activity Activity: as per physical therapy Diet: low salt diet
--- NOTE | 2018-09-20 11:31 | Physician Discharge Referral ---
Home Health/Hosp Referral Info Transfer to: Home Health, Hospice - Diagnosis (1) Gram-negative bacteremia Priority: Primary Status: Acute (2) Catheter-associated urinary tract infection Priority: Secondary Status: Acute (3) Type 2 diabetes mellitus Priority: Secondary Status: Chronic (4) History of hemiarthroplasty of left hip Priority: Secondary Status: Chronic (5) Severe dementia Priority: Secondary Status: Chronic (6) Chronic heel ulcer Priority: Secondary Status: Chronic (7) Fecal impaction Priority: Secondary Status: Resolved (8) Sepsis Priority: Secondary Status: Resolved (9) Acute kidney injury Priority: Secondary Status: Resolved (10) Acute encephalopathy Priority: Secondary Status: Resolved (11) Hydronephrosis Priority: Secondary Status: Acute (12) Hypokalemia Priority: Secondary Status: Resolved - Respiratory Orders Oxygen / L per min Smoking Cessation: Smoking cessation has been advised. For more information, call the [place] Tobacco Quit Line at 2-936-LNWF-NOW. - Diet/Nutrition Diet/Nutrition Orders: Mechanical Soft - Activity Activity Orders: Chair - Services Needed Following services are medically necessary services: Nursing, Home Health Aide, Physical Therapy, Occupational Therapy - Transfer Medications Prescriptions: Sennosides/Docusate Sodium [Senna Plus] 2 each PO BID 30 Days #60 tablet Home Medications: Brimonidine Tartrate [Alphagan P] 1 drop BOTH EYES 799,199901/08/17 [History] Diphenoxylate/Atropine [Lomotil 2.5 mg/0.025 mg] 1 tab PO QID PRN 01/08/17 [History] FLUoxetine HCl [Prozac] [place] [address]/08/17 [History] Loratadine [Allergy Relief] 10 mg PO DAILY 01/08/17 [History] Calcium Carbonate [Calcium] 1,200 mg PO 0803/15/17 [History] Ergocalciferol (VITAMIN D2) [Vitamin D2] 50,000 unit PO MO 03/15/17 [History] Aspirin 162 mg PO 0800,1700 04/19/17 [History] Lidocaine Patch [Lidoderm 5% patch] 1 each TP DAILY 04/19/17 [History] Melatonin 5 mg PO 199904/19/17 [History] Omeprazole [PriLOSEC] 20 mg PO 0600 04/19/17 [History] Acetaminophen [Tylenol 650mg SUPP] 650 mg RC Q6H PRN 07/12/18 [History] Acetaminophen [Tylenol Arthritis] 650 mg PO Q6H PRN 07/12/18 [History] Bisacodyl [Dulcolax] 10 mg RC DAILY PRN 07/12/18 [History] Calcium Carbonate/Magnesium Ox [Oyster Shell Calcium-Magnes Tb] 2 each PO 0800,1200,1600,199907/12/18 [History] Estrogens, Conjugated [Premarin Cream] 1 appl VG DAILY PRN 07/12/18 [History] Fluconazole [Diflucan] 150 mg PO PRN PRN 07/12/18 [History] Hyoscyamine SL [Levsin Sl] 0.125 mg SL Q2H PRN 07/12/18 [History] Ipratropium/Albuterol Sulfate [Iprat-Albut 0.5-3(2.5) mg/3 ml] 3 ml IH Q4H PRN 07/12/18 [History] Morphine Oral CONC [Roxanol] 5 mg PO Q4H PRN 07/12/18 [History] Nystatin Cream [Mycostatin Cream] 1 appl TP DAILY PRN 07/12/18 [History] Ondansetron HCl 8 mg PO Q4H PRN 07/12/18 [History] Promethazine [Phenergan] 25 mg RC Q6H PRN 07/12/18 [History] Ferrous Sulfate [Iron] 325 mg PO 0800,1700 09/12/18 [History] LORazepam [Ativan] 0.5 mg PO Q4HR PRN 09/12/18 [History] Meloxicam [Mobic] 7.5 mg PO 0800 09/12/18 [History] Metoprolol Succinate [Toprol Xl] 12.5 mg PO 0800 09/12/18 [History] Morphine Sulfate SR (12 HR) [MS Contin] 60 mg PO 0800,199909/12/18 [History] OxyCODONE Immed Rel [Roxicodone 5 MG] 5 mg PO Q4HR PRN 09/12/18 [History] clonazePAM [Clonazepam] 0.25 mg PO BID PRN 09/12/18 [History] Sennosides/Docusate Sodium [Senna Plus] 2 each PO BID 30 Days #60 tablet 09/20/18 [Rx] Allergies/Adverse Reactions: Allergy/AdvReac Type Severity Reaction Status Date / Time No Known Allergies Allergy Verified 09/12/18 15:17 Certification: Further, I certify that my clinical findings support that this patient is homebound (i.e. absences from home require considerable and taxing effort and are for medical reasons or holiness services or infrequently or short duration when for other reasons) because: Homebound Reason: Patient requires assistance of a person or device to safely leave home Attestation: My signature below is to certify that this patient is under my care and that I, or nurse practitioner, or a physician's law office assistant working with me, has a [id number] encounter with this patient.
--- NOTE | 2018-09-20 11:43 | Infectious Disease Progress No ---
ID Progress Note Date of Encounter: 09/20/18 Time of Encounter: 11:41 - Subjective Subjective: Patient seen and examined. No acute events noted overnight. Patient states overall she does not feel very well today. She denies any fevers or chills or rigors. Denies chest pain, shortness of breath, or cough. Denies nausea, vomiting, diarrhea, or constipation. She reports 4-5 loose stools per day. Currently incontinent of loose stool. She does complain of diffuse abdominal pa in. She has a Granados catheter that is patent. She states her appetite is not very good and she did not eat much this morning. Per nursing, taking oral medications well. She denies oral thrush or skin rashes. She denies any back or joint pain at this time. - Objective CBC & Chem 7: 09/20/18 04:10 09/20/18 04:10 - Exam Vitals: Temp Pulse Resp BP Pulse Ox 98.0 F 65 18 88/55 96 09/20/18 11:32 09/20/18 11:32 09/20/18 11:32 09/20/18 11:32 09/20/18 11:32 Exam: Head: Atraumatic, normal inspection, normocephalic. Eye: EOMI, PERRLA, no scleral icterus noted. ENT: Mucous membranes moist. No odontogenic infection noted. Neck: Normal inspection, no meningismus. Respiratory: Clear to auscultation. No rales, respiratory distress, rhonchi, or wheezes noted. Cardiovascular: Regular rate and rhythm, S1 and S2 audible. No murmurs, rubs, or gallops. GI: Soft, nondistended, normal bowel sounds. Generalized tenderness noted on palpation, improved. Granados catheter draining clear yellow urine. Extremities: No joint swelling, pedal edema, or tenderness noted. Left hip incision clean, dry, and intact. Neurological: Alert, oriented 2, no focal deficits. Psychiatric: normal affect, normal mood. Skin: Dry, intact, warm. Normal color. No rashes. - Assessment and Plan (1) Sepsis Status: Resolved Severe sepsis: The patient had two SIRS criteria plus metabolic encephalopathy and DARCY. Likely secondary to bacteremia, UTI, and colitis. Improved. WBC normal. Afebrile. HR normal. Blood cultures drawn 09/12/18 were positive 2/2 for K. pneumoniae and P. mirabilis. Repeat blood cultures drawn 09/13/18 were positive 2/2 for P. mirabilis. Repeat blood cultures drawn 09/14/18 were positive 1/2 for P. mirabilis. Repeat blood cultures drawn 09/17/18 are NGTD x 2 sets. Qualifiers: Sepsis type: sepsis due to unspecified organism Qualified Code(s): A41.9 - Sepsis, unspecified organism SNOMED Code(s): 14686972 (2) Gram-negative bacteremia Status: Acute 09/12/2018: 2/2 sets positive for Klebsiella pneumonia pansensitive and Proteus mirabilis R: ampicillin, aztreonam, cephalosporins, gentamicin, Tygacil 09/13/2018: 2/2 sets positive for Proteus mirabilis R: ampicillin, aztreonam, cephalosporins, gentamicin, Tygacil 09/14/2018: 1/2 sets positive for P. mirabilis. 09/17/18 NGTD x 2 sets. Source likely either from colitis or urinary tract infection. Patient currently on Zosyn which should cover both causative organisms. SNOMED Code(s): 793043662381 (3) Complicated UTI (urinary tract infection) Status: Acute Patient has an indwelling Granados. Urine culture were positive for Proteus. CT abdomen and pelvis 09/18/18 shows diffuse bladder wall thickening compatible with either acute or chronic cystitis. No pyelonephritis noted. Urology consulted and following. Currently on Zosyn. SNOMED Code(s): 56637726 (4) Colitis Status: Acute Stercoral colitis. On stool softners. Continues to complain of abdominal pain. Repeat CT of the abdomen and pelvis shows fecal impaction of the rectosigmoid colon, although, the amount of colonic stool present is decreased from prior CT exam. 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 Bowel regimen per the primary team. SNOMED Code(s): 87906987 (5) Fecal impaction in rectum Status: Acute SNOMED Code(s): 71265154 (6) Acute kidney injury Status: Resolved Likely might be multifactorial including sepsis and hydronephrosis. Resolved. Continue to trend. Dose-adjust medications and avoid nephrotoxins. SNOMED Code(s): 87265380, 17477917 (7) Altered mental status Status: Resolved Likely secondary to underlying dementia and metabolic encephalopathy. Appears to be back at baseline. Qualifiers: Altered mental status type: unspecified Qualified Code(s): R41.82 - Altered mental status, unspecified SNOMED Code(s): 940402199 (8) Hydronephrosis Status: Acute Noted on CT of the abdomen and pelvis. Urology consult. Discuss surgical intervention with the patient's family, but the risks of surgery outweighed the benefits. Repeat CT of the abdomen and pelvis shows resolution of the month old left hydronephrosis, but persistence of the severe right hydroureteronephrosis to the level of the distal right ureter. Further outpatient workup planned per the urology team. Qualifiers: Hydronephrosis type: unspecified Qualified Code(s): N13.30 - Unspecified hydronephrosis SNOMED Code(s): 17747365 (9) Severe dementia Status: Chronic SNOMED Code(s): 31956918 Comments: diandra.hood/vipin (10) Status post fracture of femur Status: Acute Status post ORIF of the left femur fracture 07/13/[address] Soto. Surgical site does not clinically appear infected. SNOMED Code(s): 201361069 - Recommendations Recommendations: Continue to trend CBC and BMP daily. Await repeat blood cultures to finalize. Hydronephrosis and chronic granados management per the urology team's recommendations. Continue Zosyn 3.375 grams IV Q8H. Duration of treatment depends on the clinical picture. Can likely transition to PO Levaquin when ready for discharge to complete a 14 day course from the first set of negative blood cultures. Treat through 10/01/18. Monitor renal function and dose-adjust antibiotics. Discussed with Dr. Edwards. No further recommendations from the ID team. We will sign off. Please re-consult if needed. Consult Discharge Plan - Plan Instructions: Acute Kidney Injury (DC), Urinary Tract Infection in Women (GEN), Sepsis (GEN) Referrals: Anand Morejon [Primary Care Provider] - (Patient is being discharged with [facility] Prescriptions: LORazepam [Ativan] 0.5 mg PO Q4HR PRN 5 Days #10 tablet PRN Reason: Anxiety clonazePAM [Clonazepam] 0.25 mg PO BID PRN 5 Days #10 tablet PRN Reason: Anxiety levoFLOXacin [Levofloxacin] 750 mg PO DAILY 11 Days #11 tablet Morphine Sulfate SR (12 HR) [MS Contin] 15 mg PO 0800,1999 5 Days #10 tablet.er Morphine Oral CONC [Roxanol] 5 mg PO Q4H PRN 5 Days #10 mls PRN Reason: Pain OxyCODONE Immed Rel [Roxicodone 5 MG] 5 mg PO Q4HR PRN 5 Days #10 tablet PRN Reason: Pain Sennosides/Docusate Sodium [Senna Plus] 2 each PO BID 30 Days #60 tablet - Attending Attestation I have personally performed a face to face evaluation on this patient. I have reviewed and agree with the care plan. History and Exam by me shows: Assessment and plan: 1.Sepsis 2.Gram-negative bacteremia with Klebsiella pneumoniae and Proteus mirabilis 3.Complicated Urinary tract infection 4.Altered mental status back to baseline 5.Acute kidney injury Recommendations: Okay to discharge on by mouth Anna to finish a 14 day course Discussed with the hospitalist team
[2018-09-20 14:34] VITALS: BP 104/67
[2018-09-20] MEDS: clonazePAM 0.5 MG TABLET PO PRN (16:24)
[2018-09-20] MEDS ORDERED: Ertapenem 1,000 MG in 0.9 % Sodium Chloride Mini Bag 100 ML IVPB SCH (18:00)
== END 2018-09-20 17:24 | disposition hospice, home (50) | DRG 698 ==
LOC: 2ANU → SUATTDRO 13:49
PROVIDERS: ADMIT Internal Medicine; ATTEND Internal Medicine